=== PATIENT | male | born 1945 | race Caucasian/White ===

== ENCOUNTER → 2017-01-27 | Outpatient (CLI) | payer OTHER, MEDICARE ==
[~2017-01-27] MED LIST: IOPAMIDOL (ISOVUE-300) 100 ML BTL ONE
== END ==
LOC: FIMAGING 10:21
PROVIDERS: ATTEND Internal Medicine
DX: R63.4 Abnormal weight loss (principal); Z85.72 Personal history of non-Hodgkin lymphomas; I70.0 Atherosclerosis of aorta
CPT/HCPCS: 71020; 74177; Q9967

== ENCOUNTER 2017-04-06 09:47 | Emergency (ER) | payer OTHER, MEDICARE ==
[2017-04-06] MEDS ORDERED: MECLIZINE HCL 25 MG TAB PO ONE (09:52)
--- NOTE | 2017-04-06 09:52 | EDPHY ---
H & P Time Seen by Provider: 04/06/17 09:51 HPI/ROS: CHIEF COMPLAINT: Dizziness HISTORY OF PRESENT ILLNESS: For the past 3 days patient is felt that he is spinning every time he turns his head. Today he arrives by EMS because he could not stand up because symptoms were so severe. Patient describes dizziness as spinning or sensation of movement. Worse with moving his head and better while remaining still. Associated with decreased oral intake over the past 48 hr, not feeling like eating or drinking and feels dehydrated. Not associated with headache or neck pain or weakness or numbness in extremities or difficulty with speech or balance. REVIEW OF SYSTEMS: Eye: no change in vision ENT: no sore throat, no earache or decrease in hearing Cardiac: no chest pain or syncope Pulmonary: no cough or SOB Abdomen: no vomiting, diarrhea, abdominal pain. Decreased oral intake x 1-2 years, doesn't feel hungry, food doesn't appeal to him. Musculoskeletal: No neck pain, left arm deformity and disability from previous injury Skin: no rash Neuro: no headache Constitutional: no fever : no urinary symptoms A comprehensive 10 point review of systems is otherwise negative aside from elements mentioned in the history of present illness. PAST MEDICAL HISTORY: Includes history of lymphoma Social history: No alcohol General Appearance: Alert and conversant, cooperative. Eyes: No scleral icterus. Pupils equal reactive extraocular motion intact. ENT, Mouth: Normal mucous membranes. Normal tympanic membranes. Respiratory: Normal respiratory effort, breath sounds equal, lungs are clear to auscultation. Cardiovascular: Regular rate and rhythm. Gastrointestinal: Abdomen is soft and non tender. Neurological: Alert and oriented x3. Normally conversant. Face symmetric, normal movement and sensation in all extremities. Left arm is a little bit limited by previous injury but no pronator drift and normal bblgyg-wv-ncay bilaterally. Normal jchk-fi-nkti bilaterally. Skin: Warm and dry, no rashes. Musculoskeletal: No peripheral edema and no joint swelling. Psychiatric: Not agitated. Emergency Department course/MDM: Patient presents with symptoms consistent with peripheral vertigo. He has symptoms that are provoked by turning his head, better remaining still, neurologic exam does not show objective cerebellar deficit. Does not have severe headache. Doubt dysrhythmia or cardiac problem; not lightheaded or syncopal or near syncopal. Treatment with meclizine, outpatient follow-up. 1235: Feels better, ambulatory, results and plan discussed with the patient, he states he feels comfortable going home. Smoking Status: Never smoked Constitutional: Initial Vital Signs Temperature (C) 37.0 C 04/06/17 09:57 Heart Rate 57 L 04/06/17 09:57 Respiratory Rate 16 04/06/17 09:57 Blood Pressure 147/86 H 04/06/17 09:57 O2 Sat (%) 98 04/06/17 09:57 O2 Delivery Mode Room Air Allergies/Adverse Reactions: Penicillins Allergy (Verified 09/23/15 07:11) Home Medications: Medication Instructions Recorded Alprazolam 09/23/15 Meclizine HCl [Meclizine HCl 25 mg 25 mg PO Q6 PRN #20 tab 04/06/17 (RX,OTC)] Medical Decision Making - Diagnostics EKG Interpretation: 12-lead EKG interpreted by me; official reading is in trace master. My interpretation is sinus rhythm rate 60 with right bundle branch block pattern. Differential Diagnosis: Differential diagnosis considered for dizziness including but not limited to peripheral and central causes of vertigo, orthostatic causes including dehydration, and blood loss. - Data Points Laboratory Results: Laboratory Results 04/06/17 09:53 04/06/17 09:53 04/06/17 04/06/17 09:53 09:53 WBC 6.83 10^3/uL 10^3/uL (3.80-9.50) RBC 5.28 10^6/uL 10^6/uL (4.40-6.38) Hgb 15.7 g/dL g/dL (13.7-17.5) Hct 44.7 % % (40.0-51.0) MCV 84.7 fL fL (81.5-99.8) MCH 29.7 pg pg (27.9-34.1) MCHC 35.1 g/dL g/dL (32.4-36.7) RDW 14.6 % % (11.5-15.2) Plt Count 317 10^3/uL 10^3/uL (150-400) MPV 8.5 fL L fL (8.7-11.7) Neut % (Auto) 54.0 % % (39.3-74.2) Lymph % (Auto) 35.0 % % (15.0-45.0) [place] % (Auto) 8.8 % % (4.5-13.0) Eos % (Auto) 1.0 % % (0.6-7.6) Baso % (Auto) 0.6 % % (0.3-1.7) Nucleat RBC Rel Count 0.0 % % (0.0-0.2) Absolute Neuts (auto) 3.69 10^3/uL 10^3/uL (1.70-6.50) Absolute Lymphs (auto) 2.39 10^3/uL 10^3/uL (1.00-3.00) Absolute Monos (auto) 0.60 10^3/uL 10^3/uL (0.30-0.80) Absolute Eos (auto) 0.07 10^3/uL 10^3/uL (0.03-0.40) Absolute Basos (auto) 0.04 10^3/uL 10^3/uL (0.02-0.10) Absolute Nucleated RBC 0.00 10^3/uL 10^3/uL (0-0.01) Immature Gran % 0.6 % % (0.0-1.1) Immature Gran # 0.04 10^3/uL 10^3/uL (0.00-0.10) Sodium 142 mEq/L mEq/L (134-144) Potassium 3.6 mEq/L mEq/L (3.5-5.2) Chloride 107 mEq/L mEq/L (97-110) Carbon Dioxide 23 mEq/l mEq/l (22-31) Anion Gap 12 mEq/L mEq/L (8-16) BUN 12 mg/dL mg/dL (7-23) Creatinine 1.3 mg/dL mg/dL (0.7-1.3) Estimated GFR 54 Glucose 88 mg/dL mg/dL (70-100) Calcium 9.7 mg/dL mg/dL (8.5-10.4) Medications Given: Discontinued Medications Meclizine HCl (Meclizine Hcl) 25 mg PO EDNOW ONE Stop: 04/06/17 09:53 Last Admin: 04/06/17 10:09 Dose: 25 mg Ondansetron HCl (Zofran) 4 mg IVP EDNOW ONE Stop: 04/06/17 10:06 Last Admin: 04/06/17 10:09 Dose: 4 mg Departure - Departure Disposition: Home, Routine, Self-Care Clinical Impression: Vertigo Condition: Good Instructions: Vertigo (ED), Benign Paroxysmal Positional Vertigo (ED) Referrals: Buddy Munoz MD [Primary Care Provider] - As per Instructions Prescriptions: Meclizine HCl [Meclizine HCl 25 mg (RX,OTC)] 25 mg PO Q6 PRN #20 tab PRN Reason: Dizziness
[2017-04-06 09:59] VITALS: RESP 16; TEMP 98.6; O2SAT 98
[2017-04-06 10:04] LABS: PLATELET COUNT 317 10^3/uL (150-400)
[2017-04-06] MEDS ORDERED: ONDANSETRON 4 MG/2 ML VIAL IVP ONE (10:05)
--- NOTE | 2017-04-06 10:16 | CPEKG ---
Heart Rate: Invalid RR Interval: Invalid P-R Interval: 184 QRSD Interval: 130 QT Interval: 302 QTC Interval: 302 P [place]: 0 QRS [place]: -91 T Wave [place]: 222 EKG Severity - ABNORMAL ECG - EKG Impression: SINUS RHYTHM EKG Impression: RIGHT BUNDLE BRANCH BLOCK Electronically Signed By: Isaias Perera 06-Apr-2017 10:31:04
[2017-04-06 12:45] VITALS: BP 140/82; PULSE 76
== END 2017-04-06 12:42 | disposition home or self-care (01) ==
LOC: EDBD → EDUNIT#
DX: R42 Dizziness and giddiness (principal)
CPT/HCPCS: 93005; 96374; 99284; J2405

== ENCOUNTER 2017-04-26 08:28 | Emergency (ER) | payer OTHER, MEDICARE ==
--- NOTE | 2017-04-26 08:29 | EDPHY ---
H & P HPI/ROS: CHIEF COMPLAINT: Rapid heart rate, fever HISTORY OF PRESENT ILLNESS: The patient is a 71 y/o male with a history of lymphoma arriving via EMS complaining of rapid heart rate and fever onset early this morning. He has anorexia nervosa and reports losing 40lbs over the last couple months he attributes to a "mental issue" and lack of appetite. He returned from [place] [facility] a few days ago and this morning was awoken by tachycardia and fever. He also has a cough and feels extremely thirsty. No sore throat, myalgias, dyspnea, chest pain, abdominal pain. He did receive a flu vaccination this season. REVIEW OF SYSTEMS: A ten point review of systems was performed and is negative with the exception of the items mentioned in the HPI. Episode of vertigo one week ago. 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 PCP: Dr. Buddy Munoz. Oncologist: Dr. Roberson General Appearance: Alert. Skin is hot to the touch, mildly diaphoretic. Thin. Vital signs reviewed. 120/70, 110, BGL 147, 39.5C. Eyes: Pupils equal and round, no conjunctival injection, no discharge. Anicteric. ENT, Mouth: Mucous membranes are moist, mild oropharyngeal erythema and uvular erythema, no edema. Neck: No lymphadenopathy, supple. Respiratory: Lungs are clear to auscultation; no wheezes, rales, or rhonchi. Cardiovascular: Tachycardic; no murmur, rub, or gallop. Gastrointestinal: Abdomen is soft and nontender, no masses or organomegaly. Skin: Hot, slightly diaphoretic, no rashes on exposed skin, normal color. Back: Nontender to palpation over the thoracolumbar spine. No CVAT. Extremities: No lower extremity edema, no calf tenderness or swelling. Neurological: Alert and oriented. Moving all four extremities easily and equally. Psychiatric: Normal affect. Constitutional: Initial Vital Signs Temperature (C) 39.5 C H 04/26/17 08:37 Heart Rate 105 H 04/26/17 08:37 Respiratory Rate 16 04/26/17 08:37 Blood Pressure 143/80 H 04/26/17 08:37 O2 Sat (%) 94 04/26/17 08:37 O2 Delivery Mode Room Air Allergies/Adverse Reactions: Penicillins Allergy (Verified 09/23/15 07:11) Home Medications: Medication Instructions Recorded Alprazolam 09/23/15 Meclizine HCl [Meclizine HCl 25 mg 25 mg PO Q6 PRN #20 tab 04/06/17 (RX,OTC)] AZITHROMYCIN [Z-PACK] 250 mg PO DAILY #4 tab 04/26/17 Albuterol [Proventil Inhaler HFA 1 - 2 puffs IH Q4 #1 mdi 04/26/17 (*)] Medical Decision Making - Diagnostics Imaging: I viewed and interpreted images myself ED Course/Re-evaluation: This is a 72 y/o male with anorexia and significant recent weight loss who presents with a several-hour history of tachycardia and fever. He has history ofl ymphoma (in remission)He is hot to the touch, mildly diaphoretic, and thin on exam. He is febrile at 39.5C and tachycardic around 110. Plan for sepsis work up including IV, labs, flu swab, EKG, chest x-ray, fluids, and antipyretics. 600mg PO ibuprofen and PO fluids. The 12 lead EKG was interpreted by myself. Sinus tachycardia rate 110, RBBB, LAFB. See hard copy and/or "tracemaster" electronic copy for interpretation. Flu negative. Lactate normal. WBC 11. Chest x-ray shows early pneumonia. Will treat with 1gm IV Ceftriaxone, 500mg IV azithromycin, and 1L IV NS. Reassessed patient. Temp now 38C. Additional 200mg PO ibuprofen ordered. He does not take tylenol--he was once told that he had hepatitis C. He is not sure if that is the case or not. Reassessed patient. He is unwilling to stay in the hospital, admission was offered. He is arranging transport home with his sister. DC vitals are 103/56, HR 70, RR 16, O2 sat on room air 94%, and temp 36.6. He will likely do fine with outpatient treatment. He will be given script for azithromycin and albuterol along with standard pneumonia care and follow up instructions. Return precautions discussed. He agrees with discharge plan. Differential Diagnosis: I considered ddx that includes but is not limited to influenza, pneumonia, UTI, intra-abdominal infection, viral syndrome. - Data Points Laboratory Results: Laboratory Results 04/26/17 09:05 04/26/17 09:05 Microbiology Results: MICROBIOLOGY 04/26/17 09:05 Blood Blood Culture - Preliminary 04/26/17 09:05 Blood Blood Culture - Preliminary Medications Given: Discontinued Medications Azithromycin 500 mg/ Dextrose 255 mls @ 255 mls/hr IV EDNOW ONE PRN Reason: Protocol Stop: 04/26/17 12:11 Last Admin: 04/26/17 13:26 Dose: 255 mls Ceftriaxone Sodium/Dextrose (Rocephin 1 Gm (Premix)) 50 mls @ 100 mls/hr IV EDNOW ONE PRN Reason: Protocol Stop: 04/26/17 11:41 Last Admin: 04/26/17 11:29 Dose: 50 mls Sodium Chloride (Ns) 1,000 mls @ 0 mls/hr IV EDNOW ONE; Wide Open PRN Reason: Protocol Stop: 04/26/17 11:13 Last Admin: 04/26/17 11:30 Dose: 1,000 mls Ibuprofen (Motrin) 600 mg PO EDNOW ONE Stop: 04/26/17 08:40 Last Admin: 04/26/17 09:59 Dose: 600 mg Ibuprofen (Motrin) 200 mg PO EDNOW ONE Stop: 04/26/17 11:15 Last Admin: 04/26/17 11:34 Dose: 200 mg Departure - Departure Disposition: Home, Routine, Self-Care Clinical Impression: Pneumonia Qualifiers: Pneumonia type: due to unspecified organism Laterality: left Lung location: unspecified part of lung Qualified Code(s): J18.9 - Pneumonia, unspecified organism Condition: Good Instructions: Pneumonia (ED) Additional Instructions: 1. Take azithromycin as prescribed. Be sure to complete the entire prescription. 2. Use albuterol inhaler as directed for coughing or shortness of breath. 3. Take 600mg ibuprofen every 6-8 hours for fever and pain over the next few days. 4. Increase fluid and food intake. 5. Follow up with your primary care provider for unimproved symptoms over the next 3-5 days. 6. Return to the ED for worsening of condition. Referrals: Buddy Munoz MD [Primary Care Provider] - As per Instructions Prescriptions: Albuterol [Proventil Inhaler HFA (*)] 1 - 2 puffs IH Q4 #1 mdi AZITHROMYCIN [Z-PACK] 250 mg PO DAILY #4 tab Report Scribed for: Ileana Solis Report Scribed by: Zamzam Morocho Date of Report: 04/26/17 Time of Report: 08:39 Physician Review and Approval Statement: 04/26/17 08:29 Portions of this note were transcribed by the special forces medical sergeant. I, Dr. Ileana Solis, personally performed the history, physical exam, and medical decision- making; and confirmed the accuracy of the information in the transcribed note.
[2017-04-26] MEDS ORDERED: IBUPROFEN 600 MG TAB PO ONE (08:39)
[2017-04-26 09:28] LABS: PLATELET COUNT 217 10^3/uL (150-400)
--- NOTE | 2017-04-26 09:28 | CPEKG ---
Heart Rate: 110 RR Interval: 545 P-R Interval: 188 QRSD Interval: 118 QT Interval: 336 QTC Interval: 455 P [place]: 71 QRS [place]: -101 T Wave [place]: 45 EKG Severity - ABNORMAL ECG - EKG Impression: SINUS TACHYCARDIA EKG Impression: RBBB AND LAFB Electronically Signed By: Ileana Solis 26-Apr-2017 15:18:14
[2017-04-26 09:43] LABS: INR 1.03 (0.83-1.16); PROTIME(PATIENT) 13.7 SEC (12.0-15.0)
[2017-04-26] MEDS ORDERED: AZITHROMYCIN IV 500 MG in D5W 250 ML IV ONE (11:12)
[2017-04-26] MEDS ORDERED: NS 1,000 ML IV ONE (11:12)
[2017-04-26] MEDS ORDERED: IBUPROFEN 200 MG TAB PO ONE (11:14)
[2017-04-26 14:47] VITALS: BP 103/56; PULSE 70; RESP 16; TEMP 97.9; O2SAT 94
== END 2017-04-26 14:55 | disposition home or self-care (01) ==
LOC: EDUNIT#
DX: J18.9 Pneumonia, unspecified organism (principal); E86.9 Volume depletion, unspecified
CPT/HCPCS: 71046; 93005; 96374; 96375; 99285; J0456; J0696

== ENCOUNTER → 2017-07-08 | Outpatient (CLI) | payer OTHER, MEDICARE | LOC: FIMAGING 09:23 | PROVIDERS: ATTEND Internal Medicine | DX: K14.8 Other diseases of tongue (principal); M25.78 Osteophyte, vertebrae; K22.5 Diverticulum of esophagus, acquired ==

== ENCOUNTER 2017-08-03 09:13 | Inpatient (IN) | payer OTHER, MEDICARE ==
[2017-08-03] MEDS ORDERED: NALOXONE HCL 0.4 MG/ML INJ IVP PRN (09:31)
[2017-08-03] MEDS ORDERED: GLUCAGON HCL 1 MG VIAL IVP PRN (09:31)
[2017-08-03] MEDS ORDERED: MEPERIDINE 25 MG/ML SYR IVP PRN (09:31)
[2017-08-03] MEDS ORDERED: FLUMAZENIL 0.5 MG/5 ML MDV IVP PRN (09:31)
[2017-08-03] MEDS ORDERED: ALTEPLASE 2 MG VIAL IVP PRN (09:31)
[2017-08-03] MEDS ORDERED: MIDAZOLAM 2 MG/2 ML VIAL IVP PRN (09:31)
[2017-08-03] MEDS ORDERED: fentaNYL 100 MCG/2 ML INJ IVP PRN (09:31)
[2017-08-03] MEDS ORDERED: HEPARIN 10,000 UNIT/10 ML MDV (1,000 UNIT/ML) IVP PRN (09:31)
[2017-08-03] MEDS ORDERED: PROTAMINE SULFATE 50 MG/5 ML VIAL IVP PRN (09:31)
[2017-08-03] MEDS ORDERED: NALOXONE HCL 0.4 MG/ML INJ ONE (09:35)
[2017-08-03] MEDS ORDERED: FLUMAZENIL 0.5 MG/5 ML MDV IVP ONE (09:35)
[2017-08-03] MEDS ORDERED: MIDAZOLAM 2 MG/2 ML VIAL ONE (09:36)
[2017-08-03] MEDS ORDERED: fentaNYL 100 MCG/2 ML INJ ONE ×3 (09:36→15:44)
[2017-08-03] MEDS ORDERED: ceFAZolin 2 GM/SWFI 20 ML SYR IVP ONE (09:55)
[2017-08-03] MEDS ORDERED: ceFAZolin 2 GM/SWFI 2 GM/20 ML SYR IVP ONE (10:00)
[2017-08-03] MEDS: NS 1,000 ML IV SCH ×2 (10:14→20:18)
[2017-08-03 11:01] LABS: INR 0.98 (0.83-1.16); PROTIME(PATIENT) 13.2 SEC (12.0-15.0)
[2017-08-03] MEDS ORDERED: LIDOCAINE 2% JELLY 20 ML (UROJECT) ONE (11:03)
[2017-08-03] MEDS ORDERED: LIDOCAINE 1% 300 MG/30 ML SDV ONE (11:07)
[2017-08-03] MEDS ORDERED: GLUCAGON HCL 1 MG VIAL ONE (11:38)
[2017-08-03] MEDS ORDERED: MINERAL OIL 10 ML VIAL ONE ×2 (11:51→12:02)
[2017-08-03] MEDS ORDERED: IOPAMIDOL (ISOVUE-300) 100 ML BTL ONE (12:18)
--- NOTE | 2017-08-03 13:07 | PDGENHP ---
History & Physical Chief Complaint: H&N ca History of Present Illness: 72 yo M w a h/o lymphoma many yrs ago and recently dx'd h&n ca. Endorses 35 lb weight loss. Plan for XRT. Gastrostomy tube requested. Pertinent Past, Social, Family History: Non-contributory Relevant Physical Exam: Abd soft, NTND Cardiorespiratory Assessment: Bradycardia, normal resp effort
--- NOTE | 2017-08-03 13:10 | PDPROPOC ---
Sedation Plan of Care Sedation Plan of Care: vital signs stable, mental status noted, patient educated of risks, benefits, alternatives, patient can tolerate sedation ASA Classification: ASA 3 Planned drugs: fentanyl, midazolam Mallampati Score: Class 2 (Mass at base of tongue may complicate intubation if needed) Mallampati Reference Image: Patient passed 3-3-2 rule?: Yes
[2017-08-03] MEDS ORDERED: HYDROmorphONE/DILAUDID 2 MG/ML INJ IVP PRN (13:22)
[2017-08-03] MEDS ORDERED: ERTAPENEM 1 GM VIAL IV ONE (13:22)
--- NOTE | 2017-08-03 13:22 | PDRADPN ---
Radiology Procedure Note Date of Procedure: 08/03/17 Radiologist: Felipe Trammell Anesthesia: IV Sedation Pre-op Diagnosis: H&n ca Post-op Diagnosis: Same Indication: H&n ca, XRT planned Procedure: Percutaneous gastrostomy, unsuccessful Finding(s): Unsuccessful gastrostomy tube placement. Wire access to the stomach was lost following placement of 2 T-tacks and tract dilation. Repeated attempts recatheterize stomach through existing tract were unsuccessful. Requested input from surgeon Dr. Sajan Mercado. Because there is likely a hole in the stomach which was intentionally created to accept the gastrostomy tube, he recommends repairing the hole prior to another attempt at gastrostomy tube insertion. Dr. Mercado has agreed to take the patient to the OR this afternoon and will place a surgical G-tube at that time. This was explained to pt at the conclusion of the procedure and he verbalized understanding. Please see dictated report for additional details. Inf/Abcess present in the surg proc area at time of surgery?: No EBL: Minimal Complications: No immediate Specimen(s): None taken
[2017-08-03] MEDS ORDERED: LR 1,000 ML IV ONE (13:23)
[2017-08-03] MEDS ORDERED: PROPOFOL 200 MG/20 ML VIAL ONE ×2 (15:44→17:17)
[2017-08-03] MEDS ORDERED: ROCURONIUM 50 MG/5 ML VIAL ONE (15:46)
[2017-08-03] MEDS ORDERED: RANITIDINE 50 MG/2 ML VIAL ONE (15:47)
[2017-08-03] MEDS ORDERED: DEXAMETHASONE 4 MG/ML VIAL ONE (15:47)
[2017-08-03] MEDS ORDERED: PHENYLEPHRINE HCL 100 MCG/ML SYR ONE (15:47)
[2017-08-03] MEDS ORDERED: epHEDrine SULFATE 10 MG/ML SYR ONE (15:48)
[2017-08-03] MEDS ORDERED: BUPIVACAINE 0.5% 30 ML SDV ONE (16:07)
--- NOTE | 2017-08-03 18:38 | POSTANESTH ---
Post Anesthetic Evaluation Cardiovascular Status: Normal, Stable Respiratory Status: Other, See Comment Level of Consciousness/Mental Status: Other, See Comment Pain Control: Adequate, Prn Tx Ordered Nausea/Vomiting Control: Adequate, Prn Tx Ordered Complications Possibly Related to Anesthesia: Other, See Comments (Patient with large friable pharyngeal mass which made intubation somewhat difficult. Mass with slow oozing noted intraoperatively. Discussed with ENT service ( via his PA) and with Dr. Mercado. Patient will be kept intubated overnight for likely tracheostomy in am.)
--- NOTE | 2017-08-03 19:06 | POSTOPPROG ---
Post Op Note Date of Operation: 08/03/17 Surgeon: Aquiles Mercado Couture Dressmaker: Orly Fuentes Anesthesiologist: Tucker Villalba Anesthesia: GET(General Endotracheal) Pre-op Diagnosis: pharyngeal CA, need for radiation treatment, expect need for NPO Post-op Diagnosis: same Indication: 72 Y M s/p unsuccessful IR attempt at Gtube placement Procedure: open gastrostomy tube placement Findings: tube placed in IR created site. no gross leakage. gtube functional. Inf/Abcess present in the surg proc area at time of surgery?: No EBL: Minimal Complications: none
[2017-08-03] MEDS: PROPOFOL/EMULSION 100 ML IV SCH ×2 (20:17→23:14)
[2017-08-03] MEDS: FAMOTIDINE 20 MG/NACL 50 ML IV SCH (22:21)
[2017-08-03] MEDS: CHLORHEXIDINE GLUCONATE 15 ML UDL PO SCH (22:21)
[2017-08-04] MEDS: PROPOFOL/EMULSION 100 ML IV SCH ×3 (07:58→20:41)
[2017-08-04] MEDS: FAMOTIDINE 20 MG/NACL 50 ML IV SCH ×2 (07:59→20:22)
[2017-08-04] MEDS: CHLORHEXIDINE GLUCONATE 15 ML UDL PO SCH ×2 (07:59→20:22)
--- NOTE | 2017-08-04 10:36 | SOAPPROG ---
SOAP Progress Note Assessment/Plan: Assessment: 72 y/o male with history of lymphoma and now with head and neck CA. S/p g-tube placement POD#1 Pt had bleeding postoperatively after pulling ET tube. Now intubated to protect airway. S: Awake. Communicating by writing. O: Alert Afebrile HENT: ET tube in place per xray Abdomen: soft. g-tube in place. Dressing cdi. Plan: Seen with Dr. Mercado. ENT consult. May need a trach to protect airway while undergoing radiation treatment. Scheduled to start radiation on August 10. 08/04/17 10:32 Objective: Vital Signs Temp Pulse Resp BP Pulse Ox 37.1 C 45 L 20 109/55 L 100 08/04/17 10:00 08/04/17 10:00 08/04/17 10:00 08/04/17 10:00 08/04/17 10:00 Laboratory Results 08/03/17 10:05 08/03/17 08/04/17 08/05/17 05:59 05:59 05:59 Intake Total 903 Output Total 550 Balance 353 PT 13.2 SEC (12.0-15.0) 08/03/17 10:05 INR 0.98 (0.83-1.16) 08/03/17 10:05 ICD10 Worksheet Patient Problems: Problems Problem Status Onset Pneumonia Acute
--- NOTE | 2017-08-04 11:08 | PDMN ---
Medical Necessity Medical necessity: est los>2mn s/p open G tube placement for unsuccessful IR procedure, and resp failure with intubation maintained for large friable pharyngeal mass with slow oozing noted; likely tracheostomy needed to protect airway during RT; hx lymphoma, now with head and neck CA; per order and progress note 06/06/17, anesthesia note 08/03/17
--- NOTE | 2017-08-04 14:39 | ASMTCASEMG ---
Living Arrangements What is your living Answers: Alone arrangement? Who do you live with? Type Of Residence What kind of residence do Answers: House you live in? Discharge Plan Comments Coordination Status Comments Notes: Patient is a 72yo single male who comes to [facility] for Gastrostomy Tube placement. Patient has a preoperative diagnosis of head and neck cancer. This is a replacement tube so the hole in the stomach that accepted the first tube will need to be repaired. FAMILY CONSUMER SCIENTIST has been ordered. D/C plan TBD. CM will follow. Date Signed: 08/04/2017 02:39 PM Electronically Signed By:Lilibeth Alex LCSW
[2017-08-04] MEDS: NS 1,000 ML IV SCH (20:40)
--- NOTE | 2017-08-04 22:42 | GCON ---
[f rep st] CONSULTATION DATE OF CONSULTATION: 08/04/2017 CHIEF COMPLAINT: Airway obstruction. 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 He recently underwent attempts at a G-tube per the radiologist. This was not possible and he subsequently underwent open insertion of PEG tube by Dr. Aquiles Mercado. During his intubation, the anesthesiologist noted great difficulty intubating the patient with bleeding in the region of the hypopharynx due to the patient's known T3 N0 squamous cell carcinoma. The patient has been kept in the intensive care unit intubated following the procedure, and there was a question as to whether significant airway obstruction was noted and whether the patient would need a tracheostomy. PHYSICAL EXAMINATION: GENERAL: The patient is a sedated white male with ET tube in place. VITAL SIGNS: He is afebrile. Blood pressure is 120/59 with a pulse of 78. He is currently on a ventilator. HEENT: The patient was a sedated male. The nasal exam was unremarkable. Oral cavity, oropharynx exam reveals a presence of an ET tube. NECK: Without mass or adenopathy. Fiberoptic laryngoscopy was performed, which revealed the presence of a large exophytic mass on the base of tongue. The lesion has possibly enlarged since he was previously examined 2 weeks ago. The lesion significantly obstructed his airway. Due to the patient's enlarging base of tongue tumor, in a discussion with Dr. Carlos Peña, it was felt appropriate to proceed with tracheostomy. Tracheostomy will be performed on the morning of 08/05/2017. Preoperative consent was obtained from the patient. Risks of this procedure, including bleeding, infection, anesthetic risks, as well as risk of pneumothorax were discussed. He appears to understand these risks and wishes to proceed. Surgery will again be performed on 08/05/2017. /[id number]/MODL MTDD
--- NOTE | 2017-08-04 23:33 | SOAPPROG ---
SOAP Progress Note Assessment/Plan: Assessment: 72 yo M w h/o lymphoma recently dx'd w SCC of hypopharynx s/p successful surgical G-tube placement POD #1. Initial IR attempt at G-tube unsuccessful. During intubation, pt noted to have large mass threatening airway. Was kept intubated and tracheostomy is planned. Plan: 1. No new recs from an IR standpoint. 2. Concur w tracheostomy per ENT recs. Thank you for the opportunity to assist in the care of this pt. 08/04/17 23:27 Subjective: Pt seen and examined this am. Awake and alert. Communicates by pen and paper. Denies pain. Understands need for tracheostomy. Objective: Vital Signs Temp Pulse Resp BP Pulse Ox 36.7 C 41 L 20 135/61 H 100 08/04/17 20:00 08/04/17 23:00 08/04/17 23:00 08/04/17 23:00 08/04/17 23:00 Laboratory Results 08/03/17 10:05 08/03/17 08/04/17 08/05/17 05:59 05:59 05:59 Intake Total 903 608 Output Total 550 275 Balance 353 333 PT 13.2 SEC (12.0-15.0) 08/03/17 10:05 INR 0.98 (0.83-1.16) 08/03/17 10:05 Gen: Awake, alert HEENT: Normocephalic, atraumatic, anicteric Heart: RRR Lungs: Intubated Abd: G-tube in place, dressing CDI, abd soft and NT, no rebound, no guarding MSK: No CCE ICD10 Worksheet Patient Problems: Problems Problem Status Onset Pneumonia Acute
[2017-08-05] MEDS: PROPOFOL/EMULSION 100 ML IV SCH (02:52)
[2017-08-05] MEDS: FAMOTIDINE 20 MG/NACL 50 ML IV SCH ×2 (07:58→20:33)
[2017-08-05] MEDS: CHLORHEXIDINE GLUCONATE 15 ML UDL PO SCH ×2 (07:58→20:33)
--- NOTE | 2017-08-05 10:16 | SOAPPROG ---
SOAP Progress Note Assessment/Plan: Assessment: 72 y/o male with history of lymphoma and now with head and neck CA. S/p g-tube placement POD#1 Pt had bleeding postoperatively after pulling ET tube. Now intubated to protect airway. S: Awake. Communicating by writing. O: Alert Afebrile HENT: ET tube in place per xray Abdomen: soft. g-tube in place. Dressing cdi. Plan: Seen with Dr. Mercado. ENT consult. May need a trach to protect airway while undergoing radiation treatment. Scheduled to start radiation on August 10. 08/04/17 10:32 08/05/17 10:15 Pt stable. G-tube in place. Dressing cdi. Plan for tracheostomy with ENT later today. Objective: Vital Signs Temp Pulse Resp BP Pulse Ox 36.7 C 45 L 20 151/89 H 100 08/05/17 08:00 08/05/17 10:00 08/05/17 10:00 08/05/17 10:00 08/05/17 10:00 Laboratory Results 08/03/17 10:05 08/04/17 08/05/17 08/06/17 05:59 05:59 05:59 Intake Total 903 1876 Output Total 550 925 Balance 353 951 PT 13.2 SEC (12.0-15.0) 08/03/17 10:05 INR 0.98 (0.83-1.16) 08/03/17 10:05 ICD10 Worksheet Patient Problems: Problems Problem Status Onset Pneumonia Acute
--- NOTE | 2017-08-05 12:03 | GOP ---
[f rep st] OPERATIVE REPORT DATE OF OPERATION: 08/03/2017 SURGEON: Aquiles Mercado MD MANAGER LANGUAGE: Orly Fuentes, HAMLET. ANESTHESIOLOGIST: Dr. AGUIRRE. PREOPERATIVE DIAGNOSIS: Need for gastrostomy with recent gastric perforation and attempt at percutaneous gastrostomy placement. POSTOPERATIVE DIAGNOSIS: Need for gastrostomy with recent gastric perforation and attempt at percutaneous gastrostomy placement. PROCEDURE PERFORMED: Mini laparotomy with gastrostomy placement. FINDINGS: The patient was found to have a small hole in the stomach. The anchoring stitches had pulled away, at least on 1 side. There was no significant contamination. ESTIMATED BLOOD LOSS: Negligible. DESCRIPTION OF PROCEDURE: Patient taken to the operating room where he received satisfactory general endotracheal anesthesia. He was placed in supine position, prepped and draped in the usual sterile fashion. A short midline incision was made and carried through the linea alba. The abdomen was entered. The stomach was grasped with Joaquín clamps and elevated up. The previous attempted gastrostomy site was identified. The stay sutures were removed. A pursestring suture of 0 silk was placed around the gastrotomy site. A 24- Palauan gastrotomy tube was brought in through the previous incision site through the abdominal wall. The balloon was tested, and it was then inserted via the gastrotomy wound into the stomach. The balloon was inflated. The pursestring was tied down and then a second pursestring was placed outside of that one, and the stomach was then tacked up to the anterior abdominal wall. The linea alba was closed with a running #1 PDS suture and 4-0 Monocryl subcuticular stitch for the skin. The wound was covered with some Dermabond glue. Externally, the catheter was secured at the exit site after being tacked up to the abdominal wall with interrupted 3-0 Prolene sutures. Wounds were infiltrated with 0.5% Marcaine. He tolerated the procedure well. He was taken to the recovery room in good condition. COMPLICATIONS: There were no complications. /[id number]/MODL MTDD
[2017-08-05] MEDS ORDERED: LIDOCAINE HCL 4% TOPICAL SOLN 50ML ONE (12:55)
[2017-08-05] MEDS ORDERED: LIDO/EPI 1% **for epidural** 30 ML SDV ONE (12:55)
[2017-08-05] MEDS ORDERED: fentaNYL 100 MCG/2 ML INJ ONE ×2 (13:21)
[2017-08-05] MEDS ORDERED: PROPOFOL 200 MG/20 ML VIAL ONE (13:21)
[2017-08-05] MEDS ORDERED: DEXAMETHASONE 4 MG/ML VIAL ONE (14:03)
[2017-08-05] MEDS ORDERED: ONDANSETRON 4 MG/2 ML VIAL ONE (14:03)
--- NOTE | 2017-08-05 14:10 | POSTOPPROG ---
Post Op Note Date of Operation: 08/05/17 Surgeon: Aubree Red Clothing Examiner: Carlos Peña M.D. 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
[2017-08-05] MEDS ORDERED: NALOXONE HCL 0.4 MG/ML INJ IVP PRN (14:13)
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
--- NOTE | 2017-08-05 15:15 | GOP ---
[f rep st] OPERATIVE REPORT DATE OF OPERATION: 08/05/2017 SURGEON: Ender Red MD LEVI MAKER: Carlos Peña MD ANESTHESIA: General endotracheal. PREOPERATIVE DIAGNOSIS: Respiratory failure and difficult intubation due to large base of tongue radha or. POSTOPERATIVE DIAGNOSIS: Respiratory failure and difficult intubation due to large base of tongue tu mor. PROCEDURE PERFORMED: Tracheostomy with direct laryngoscopy. FINDINGS: Normal trachea and uncomplicated tracheostomy with large base of tongue tumor on direct la ryngoscopy. ESTIMATED BLOOD LOSS: 50 mL. DESCRIPTION OF PROCEDURE: The patient arrived in the operating room intubated. He was then anesthet ized and once under general anesthesia, sterile prep and drape of the anterior neck was performed in the standard manner for tracheostomy. The incision was then planned and created in naturally occurring skin crease midway between the crico id cartilage and the sternal notch. The incision was then carried down through the soft tissues of t he anterior neck, the strap muscles were encountered and were retracted laterally. As dissection pro ceeded further deeply the thyroid isthmus was encountered and this was reflected cephalad from the op erative site. Further dissection was performed where soft tissues were cleared from the anterior tra cheal wall. A trach hook was inserted deep to the cricoid cartilage and elevated superiorly. The tr achea was then entered between the 2nd and 3rd tracheal ring. The cruciate incision was created into its anterior tracheal wall. The previously placed endotracheal tube was visualized. This was gradu ally withdrawn and once clear of the tracheostomy site a #8 Portex cuffed nonfenestrated tube was ins erted into the tracheostomy. End-tidal CO2 were then returned. The tracheostomy tube was sutured in to place with four 2-0 silk sutures. In addition, a trach twill was tied snugly around the patient's neck. At this point, attention was directed to laryngoscopy. The patient has been noted to have a very lar ge base of tongue carcinoma T3 N0 on prior evaluation. Sterile eye pads and head drape were placed. A tooth guard was placed over the upper incisors to protect them. The Dedo laryngoscope was advance d into the oral cavity and into the oropharynx. The large fungating base of tongue tumor was visuali zed. The scope was advanced further and it was noted that the tumor was free of the epiglottis. The larynx including endolarynx, right and left piriform sinus post cricoid region were found to be with in normal limits. The tumor was noted to be predominantly on the left side of the base of the tongue . At this point the procedure was terminated. The was awakened and transferred to [facility] in stable condition. FLUID REPLACEMENT: 400 mL. COMPLICATIONS: None. /[id number]/MODL
--- NOTE | 2017-08-05 16:16 | PDINTPN ---
Global Climate Change Researcher Progress Note Assessment/Plan: Assessment: Squamous Cell Ca tongue base. Friable, obstructing airway Respiratory Failure: Dur to upper airway obstruction. Now s/p trach Tracheostomy: Doing well post-op, with minimal bleeding. Stable on vent. Plan: Wean sedation and increase activity. Change to trach collar once more alert. 08/05/17 16:14 Subjective: Sedated, fresh tracheostomy Objective: Vital Signs Temp Pulse Resp BP Pulse Ox 36.6 C 55 L 20 153/69 H 100 08/05/17 14:27 08/05/17 15:25 08/05/17 15:25 08/05/17 15:25 08/05/17 15:25 Laboratory Results 08/03/17 10:05 08/04/17 08/05/17 08/06/17 05:59 05:59 05:59 Intake Total 903 1876 Output Total 550 925 350 Balance 353 951 -350 PT 13.2 SEC (12.0-15.0) 08/03/17 10:05 INR 0.98 (0.83-1.16) 08/03/17 10:05 Physical Exam - Physical Exam General Appearance: alert, no apparent distress EENT: normal ENT inspection Neck: other (tracheostomy site with minimal fresh blood.) Respiratory: lungs clear, normal breath sounds Cardiac/Chest: regular rate, rhythm, No edema Abdomen: normal bowel sounds, non-tender Skin: normal color, warm/dry Extremities: normal inspection Neuro/Psych: No alert (sedated), No motor weakness ICD10 Worksheet Patient Problems: Problems Problem Status Onset Pneumonia Acute
[2017-08-05] MEDS: NS 1,000 ML IV SCH (16:35)
--- NOTE | 2017-08-05 16:36 | GCON ---
[f rep st] CONSULTATION PULMONARY/CRITICAL CARE CONSULTATION DATE OF CONSULTATION: 08/04/2017 REQUESTING PROVIDER: Aquiles Mercado MD REASON FOR REFERRAL: Evaluation and management of respiratory failure requiring intubation. HISTORY: The patient is a 72-year-old male with a history of squamous cell carcinoma of the tongue b ase, who is planning to start chemotherapy and radiation soon. He was admitted yesterday for G-tube placement per Radiology. This was unsuccessful and the patient underwent open insertion of a PEG tub e by Dr. Mercado. He was somewhat difficult to intubate due to the tumor so was kept intubated postope ratively. The tumor was somewhat friable and bleeding and was felt to pose a risk for airway patency . He currently denies any pain, is fairly comfortable with an endotracheal tube in and mechanically ventilated. PAST MEDICAL HISTORY: 1. Tongue base squamous cell carcinoma. 2. Hepatitis C. 3. History of Waldenstrom macroglobulinemia. 4. History of GI lymphoma. 5. Depression. ADMISSION MEDICATIONS: Include Lexapro and alprazolam. ALLERGIES: Penicillin. SOCIAL HISTORY: The patient has never smoked. He drinks alcohol occasionally. FAMILY HISTORY: Unremarkable. REVIEW OF SYSTEMS: A 10-point review of systems is unobtainable. PHYSICAL EXAMINATION: GENERAL: The patient is sedated but arousable. VITAL SIGNS: His blood press ure is 115/57 with a heart rate of 45. He is afebrile. Oxygen saturations are 100% on 40% oxygen. HEENT: Normocephalic and atraumatic. No icterus. He has an oral endotracheal tube. NECK: No davion opathy. Trachea is midline. CHEST: Clear to auscultation. CARDIAC: Regular rate and rhythm and r hythm without murmur. ABDOMEN: Soft, nontender. Bowel sounds are present. EXTREMITIES: No clubbi ng, cyanosis, or edema. NEUROLOGIC: The patient is sedated but does awaken and follows some simple commands. There is no gross motor weakness. LABORATORY: Hematocrit is 41.01. INR is 1.0. A chest x-ray shows clear lung castañeda and appropriate position of the endotracheal tube. Images revi ewed by me. ASSESSMENT: 1. Squamous cell carcinoma of the tongue. This is potentially curable with radiation and therapy wh ich is planned to start next week. 2. Respiratory failure. This is due to bleeding of his large upper airway tumor with airway comprom ise. He is currently stable on the ventilator with good gas exchange. 3. History of hepatitis C. 4. History of depression. RECOMMENDATIONS: The patient will be kept intubated. He has been seen by Dr. Red, who plans on d oing a tracheostomy tomorrow for airway protection prior to starting chemotherapy and radiation. /[id number]/MODL
--- NOTE | 2017-08-06 08:25 | SOAPPROG ---
SOAP Progress Note Assessment/Plan: pt s/p trach by Dr. solis yesterday. Pt stable. neck- trach in place with some bloody discharge. Plan: pt s/p trach ,stable. 08/06/17 08:24 Objective: Vital Signs Temp Pulse Resp BP Pulse Ox 37.3 C 61 20 120/59 L 100 08/05/17 20:00 08/06/17 08:00 08/06/17 08:00 08/06/17 08:00 08/06/17 08:00 Laboratory Results 08/03/17 10:05 08/05/17 08/06/17 08/07/17 05:59 05:59 05:59 Intake Total 1876 3060.6 Output Total 925 2600 Balance 951 460.6 PT 13.2 SEC (12.0-15.0) 08/03/17 10:05 INR 0.98 (0.83-1.16) 08/03/17 10:05 ICD10 Worksheet Patient Problems: Problems Problem Status Onset Pneumonia Acute
--- NOTE | 2017-08-06 08:39 | POSTANESTH ---
Post Anesthetic Evaluation Cardiovascular Status: Normal, Stable Respiratory Status: Normal, Stable Level of Consciousness/Mental Status: Can Participate in Eval, Mildly Sleepy, Arousable Pain Control: Adequate, Prn Tx Ordered Nausea/Vomiting Control: Adequate, Prn Tx Ordered Complications Possibly Related to Anesthesia: None Noted
[2017-08-06] MEDS: FAMOTIDINE 20 MG/NACL 50 ML IV SCH (09:13)
[2017-08-06] MEDS: CHLORHEXIDINE GLUCONATE 15 ML UDL PO SCH (09:13)
--- NOTE | 2017-08-06 09:30 | SOAPPROG ---
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 s/p open gastrostomy tube placement. now s/p tracheostomy for obstructive concerns. Tube site clean. Feedings started. Trach site clean, min serosanguinous drainage. Spent time explaining why he has the trach. S: writes "am I going to ?" O: alert, nonverbal with trach. writes legibly no wob abd soft see wound descriptions above 08/06/17 09:27 Objective: Vital Signs Temp Pulse Resp BP Pulse Ox 37.7 C 67 20 102/54 L 100 08/06/17 09:00 08/06/17 09:00 08/06/17 09:00 08/06/17 09:00 08/06/17 09:00 Laboratory Results 08/03/17 10:05 08/05/17 08/06/17 08/07/17 05:59 05:59 05:59 Intake Total 1876 3060.6 Output Total 925 2600 Balance 951 460.6 PT 13.2 SEC (12.0-15.0) 08/03/17 10:05 INR 0.98 (0.83-1.16) 08/03/17 10:05 ICD10 Worksheet Patient Problems: Problems Problem Status Onset Pneumonia Acute
--- NOTE | 2017-08-06 12:24 | PDINTPN ---
Academic Specialist Progress Note Assessment/Plan: Assessment: Squamous Cell Ca tongue base. Friable, obstructing airway Respiratory Failure: Due to upper airway obstruction. Now s/p trach. Dyspneic for unclear reasons. CXR normal yesterday afternoon. Tracheostomy: Doing well post-op, with minimal bleeding. Stable on vent. Plan: Wean sedation and increase activity. Trach collar/TP or RA. Will ask ST to evaluate for voicing trials. Increase activity. Tx to SDU. Pain meds via NGT. 08/06/17 12:27 Subjective: Thinks that he's going to . Feels dyspneic. Denies pain. Objective: Vital Signs Temp Pulse Resp BP Pulse Ox 37.7 C 76 18 113/54 L 99 08/06/17 09:00 08/06/17 11:06 08/06/17 11:06 08/06/17 10:00 08/06/17 11:06 Laboratory Results 08/03/17 10:05 08/05/17 08/06/17 08/07/17 05:59 05:59 05:59 Intake Total 1876 3060.6 Output Total 925 2600 Balance 951 460.6 PT 13.2 SEC (12.0-15.0) 08/03/17 10:05 INR 0.98 (0.83-1.16) 08/03/17 10:05 Physical Exam - Physical Exam General Appearance: alert, no apparent distress EENT: pharynx normal Neck: normal inspection Respiratory: lungs clear Cardiac/Chest: regular rate, rhythm, No edema Abdomen: normal bowel sounds, non-tender Skin: normal color, warm/dry Extremities: normal inspection Neuro/Psych: alert, normal mood/affect, oriented x 3 ICD10 Worksheet Patient Problems: Problems Problem Status Onset Pneumonia Acute
[2017-08-06] MEDS ORDERED: OXYCODONE/APAP 5/325 TAB PO PRN (12:25)
--- NOTE | 2017-08-06 13:15 | ASMTCMCOM ---
CM Note CM Note Notes: Patient had tracheostomy yesterday and is doing well post op. Plan to wean sedation today and increase patient activity. Patient to transfer to SDU today. D/C plan TBD. CM will follow. Date Signed: 08/06/2017 01:14 PM Electronically Signed By:Lilibeth Alex LCSW
--- NOTE | 2017-08-06 14:54 | GCON ---
[f rep st] CONSULTATION NEW ONCOLOGY CONSULTATION. Consulting physician is Dr. Neal. REASON FOR CONSULTATION: Patient known to Dr. Mario Roberson with stage T2 N0 M0 oropharyngeal cancer. HISTORY OF PRESENT ILLNESS: The patient is a 72-year-old gentleman, who has a remote history of Waldenstrom's macroglobulinemia, treated in 2003 with R-CVP, at which time he presented with an abdominal mass. He had a 30-pound weight loss. CT scan showed no evidence of disease. He was found to have an oropharyngeal mass in the left base of tongue. Ultimately, a biopsy with Dr. Peña showed squamous cell carcinoma about 3.5 cm in size, extending down to the epiglottis, making this a P2 T3 lesion. The patient did have a PET scan that showed the primary tumor, but no definite neck disease or distant metastatic disease. He is HPV positive. He has had some anxiety about PEG tube placement. Ultimately, he was admitted on 08/04 for this per Radiology. This was unsuccessful. The patient underwent open insertion of a PEG tube by Dr. Mercado. He was somewhat difficult to intubate due to the oropharyngeal tumor , so he was kept intubated postoperatively. The tumor was somewhat friable and bleeding. It was felt to pose a risk for airway patency and ultimately, he had a tracheostomy on 08/05/2017. The patient currently remains in the ICU with a tracheostomy and PEG tube. He is tolerating PEG tube feedings at this time and denies pain. The overall plan was radiation alone. PAST MEDICAL HISTORY: 1. Non-Hodgkin lymphoma, Waldenstrom's, status post treatment. 2. Oropharyngeal cancer. 3. Neutropenia. 4. Anorexia. 5. Hepatitis C. Has not been treated. Follows with Dr. Watkins. The plan ultimately is to be treated with Harvoni. 6. Weight loss. 7. Anxiety. FAMILY HISTORY: Noncontributory. ALLERGIES: Penicillin. MEDICATIONS: Current meds have been reviewed in the EMR. Only medications today are oxycodone and acetaminophen. PHYSICAL EXAMINATION: VITAL SIGNS: Today, blood pressure 130/65, pulse 72, respiratory rate 17, satting 100% on FiO2 of 33%. He has a trach. HEART: Regular rate and rhythm. LUNGS: Clear anteriorly. ABDOMEN: Soft. PEG tube evaluated. Clean, dry, and intact. LOWER EXTREMITIES: No significant edema. PSYCHIATRIC: Remains anxious. LABORATORY DATA: Most recent labs show no blood work today. ASSESSMENT: 1. 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 2. Hepatitis C. 3. Waldenstrom's macroglobulinemia. 4. Status post tracheostomy and gastrostomy tube. Tracheostomy for friable tumor. Patient currently being monitored in the hospital. PLAN: 1. 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 Red is staging the patient as T3N0. Dr. Roberson had planned for radiation alone, and he has been simulated by Dr. Brantley. Discussed with Dr. Brantley today. Re-simulation may not take long. Patient remains stable. He should be leaving the ICU today. Dr. Roberson discussed with me giving him a cycle of neoadj chemo in the hospital to buy us some time, but I am not entirely sure this is necessary, as I think he may be able to start radiation as soon as next week, and this would avoid toxicities of chemotherapy. The tumor will remain friable until treatment is ensued. We will discuss with both Dr. Brantley and Dr. Roberson today. Consider carbo/taxol vs TPF if felt chemo is needed. He is status post PEG as well as tracheostomy; doing well from this standpoint. 2. Hepatitis C: Dr. Watkins plans to treat him later. No risk of reactivating the hepatitis with radiation alone. Unlikely to reactivate w chemo. 3. Diffuse anxiety: This has been an ongoing issue. P.r.n. benzodiazepine. 4. Discharge: Possibly discharge home. Will need trach and PEG tube teaching. We will continue to follow in the hospital. More than 30 minutes were spent with the patient, more than 50% of the time in counseling, coordinating care, and discussing with Dr. Brantley and Dr. Roberson. /[id number]/MODL MTDD
--- NOTE | 2017-08-06 17:55 | SOAPPROG ---
SOAP Progress Note Assessment/Plan: Assessment: Plan: 08/06/17 17:54 pt resting quietly Trach function excellent minimal drainage. Will change track to size 6 cuffless fenestrated on Stable POD # 1 Objective: Vital Signs Temp Pulse Resp BP Pulse Ox 37.4 C 67 17 139/76 H 100 08/06/17 16:00 08/06/17 16:00 08/06/17 16:00 08/06/17 16:00 08/06/17 16:00 Laboratory Results 08/03/17 10:05 08/05/17 08/06/17 08/07/17 05:59 05:59 05:59 Intake Total 1876 3060.6 2036 Output Total 925 2600 550 Balance 951 460.6 1486 PT 13.2 SEC (12.0-15.0) 08/03/17 10:05 INR 0.98 (0.83-1.16) 08/03/17 10:05 ICD10 Worksheet Patient Problems: Problems Problem Status Onset Pneumonia Acute
--- NOTE | 2017-08-07 12:25 | PDINTPN ---
Pipe Organ Installer Progress Note Assessment/Plan: Assessment: Squamous Cell Ca tongue base. Friable, obstructing airway Respiratory Failure: Due to upper airway obstruction. Now s/p trach. Dyspneic for unclear reasons. RR 20, unlabored, sats OK on RA Tracheostomy: Doing well post-op, with minimal bleeding. Stable on RA Plan: Will ask ST to evaluate for voicing trials. Increase activity. Tx to Onc. Pain meds via NGT. 08/07/17 12:24 08/07/17 12:25 Subjective: C/O dyspnea. No cough, pain Objective: Vital Signs Temp Pulse Resp BP Pulse Ox 37.4 C 65 19 154/77 H 97 08/07/17 08:05 08/07/17 12:11 08/07/17 12:11 08/07/17 12:11 08/07/17 12:11 Laboratory Results 08/03/17 10:05 08/06/17 08/07/17 08/08/17 05:59 05:59 05:59 Intake Total 3060.6 3000 Output Total 2600 1400 320 Balance 460.6 1600 -320 PT 13.2 SEC (12.0-15.0) 08/03/17 10:05 INR 0.98 (0.83-1.16) 08/03/17 10:05 Physical Exam - Physical Exam General Appearance: alert, no apparent distress EENT: normal ENT inspection Neck: other (trach site OK) Respiratory: chest non-tender, lungs clear Cardiac/Chest: normal peripheral pulses, regular rate, rhythm Abdomen: normal bowel sounds, non-tender Skin: normal color, warm/dry Extremities: normal inspection Neuro/Psych: alert, normal mood/affect (depressed) ICD10 Worksheet Patient Problems: Problems Problem Status Onset Pneumonia Acute
--- NOTE | 2017-08-07 12:48 | SOAPPROG ---
SOAP Progress Note Assessment/Plan: E&M for H&N cancer * Stage II (T2 N0) HPV+, squamous Cell Ca of base of tongue base: Had airway obstruction now s/p trach. No bleeding. Primary therapy is single agent radiation. If there is need to shrink the cancer prior to radiation, can consider carbo/taxol x 1-2 cycles. Would not use TPF as too toxic. Agree with increasing activity and speech consult. I believe rad onc will see him on wednesday. Subjective: Unable to speak. Seems frustrated with me but won't right questions down. C/O fatigue. Objective: Vital Signs Temp Pulse Resp BP Pulse Ox 37.4 C 65 19 154/77 H 97 08/07/17 08:05 08/07/17 12:11 08/07/17 12:11 08/07/17 12:11 08/07/17 12:11 Laboratory Results 08/03/17 10:05 08/06/17 08/07/17 08/08/17 05:59 05:59 05:59 Intake Total 3060.6 3000 Output Total 2600 1400 320 Balance 460.6 1600 -320 PT 13.2 SEC (12.0-15.0) 08/03/17 10:05 INR 0.98 (0.83-1.16) 08/03/17 10:05 Physical Exam - Physical Exam General Appearance: alert Neck: other (trach in place) Respiratory: lungs clear Cardiac/Chest: regular rate, rhythm Abdomen: normal bowel sounds, non-tender, soft, other (Tolerating tube feedings) ICD10 Worksheet Patient Problems: Problems Problem Status Onset Pneumonia Acute
[2017-08-07] MEDS ORDERED: ESCITALOPRAM OXALATE 10 MG TAB PO SCH (16:15)
[2017-08-07] MEDS: ESCITALOPRAM OXALATE 10 MG TAB TUBE SCH (17:15)
[2017-08-07] MEDS: ACETAMINOPHEN 650 MG/20.3 ML UDCUP PO PRN ×2 (18:10→22:29)
[2017-08-08] MEDS: ESCITALOPRAM OXALATE 10 MG TAB TUBE SCH (08:02)
[2017-08-08] MEDS: ACETAMINOPHEN 650 MG/20.3 ML UDCUP PO PRN (08:03)
--- NOTE | 2017-08-08 09:34 | SOAPPROG ---
SOAP Progress Note Assessment/Plan: Assessment: MUCH BETTER TODAY/ AFEBRILE NOW/ GASTROSTOMY WORKING WELL Plan:RAD RX 08/08/17 09:33 Objective: Vital Signs Temp Pulse Resp BP Pulse Ox 37.7 C 76 20 160/81 H 94 08/08/17 07:55 08/08/17 07:55 08/08/17 07:55 08/08/17 07:55 08/08/17 07:55 Laboratory Results 08/03/17 10:05 08/07/17 08/08/17 08/09/17 05:59 05:59 05:59 Intake Total 3000 2128 75 Output Total 1400 670 Balance 1600 1458 75 PT 13.2 SEC (12.0-15.0) 08/03/17 10:05 INR 0.98 (0.83-1.16) 08/03/17 10:05 ICD10 Worksheet Patient Problems: Problems Problem Status Onset Pneumonia Acute
[2017-08-08] MEDS ORDERED: POLYETHYLENE GLYCOL 3350 17 GM PKT PO PRN (13:31)
[2017-08-08] MEDS ORDERED: ALPRAZolam 0.5 MG TAB PO PRN (15:57)
[2017-08-08] MEDS: POLYETHYLENE GLYCOL 3350 17 GM PKT TUBE PRN (17:16)
[2017-08-08] MEDS: SENNOSIDES 17.6 MG/10 ML UDL TUBE SCH (21:13)
[2017-08-08] MEDS: OXYCODONE/APAP 5/325 TAB TUBE PRN (23:16)
[2017-08-08 23:30] LABS: PLATELET COUNT 157 10^3/uL (150-400)
[2017-08-08 23:36] LABS: INR 1.1 (0.83-1.16); PROTIME(PATIENT) 14.4 SEC (12.0-15.0)
[2017-08-09] MEDS: ESCITALOPRAM OXALATE 10 MG TAB TUBE SCH (09:19)
[2017-08-09] MEDS: SENNOSIDES 17.6 MG/10 ML UDL TUBE SCH ×2 (09:19→22:08)
--- NOTE | 2017-08-09 10:05 | SOAPPROG ---
SOAP Progress Note Assessment/Plan: Assessment: 72 y/o male with history of lymphoma and now with head and neck CA. S/p g-tube placement Now s/p tracheostomy placement S: Nonverbal for the most part, but did mouth "tired" to me. O: sleepy during visit RRR No WOB Abdomen soft, nontender. G-tube with dressing cdi. Tube feeding during visit Plan: Pt doing well from a surgical standpoint. Tolerating tube feedings well. Will continue to follow. 08/09/17 10:02 Objective: Vital Signs Temp Pulse Resp BP Pulse Ox 38.4 C H 77 20 141/64 H 93 08/09/17 07:32 08/09/17 08:00 08/09/17 08:00 08/09/17 08:00 08/09/17 08:00 Microbiology 08/08/17 23:00 - Final Sputum, Expectorated Laboratory Results 08/08/17 23:00 08/08/17 23:00 08/08/17 08/09/17 08/10/17 05:59 05:59 05:59 Intake Total 2128 1997 190 Output Total 670 750 100 Balance 1458 1247 90 PT 14.4 SEC (12.0-15.0) 08/08/17 23:00 INR 1.10 (0.83-1.16) 08/08/17 23:00 ICD10 Worksheet Patient Problems: Problems Problem Status Onset Pneumonia Acute
--- NOTE | 2017-08-09 12:32 | SOAPPROG ---
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 No bleeding. Primary therapy is single agent radiation. If there is need to shrink the cancer prior to radiation, can consider carbo/taxol x 1-2 cycles. Would not use TPF as too toxic. Agree with increasing activity and speech consult. Discussed case with RT, they are trying to get him in for simulation tomorrow. Low grade fever Subjective: Unable to speak. Tired. 08/09/17 12:29 08/09/17 12:33 Subjective: Non verbal, tired Objective: Vital Signs Temp Pulse Resp BP Pulse Ox 101.2 F H 77 20 141/64 H 93 08/09/17 07:32 08/09/17 08:00 08/09/17 08:00 08/09/17 08:00 08/09/17 08:00 Microbiology 08/08/17 23:00 - Final Sputum, Expectorated Laboratory Results 08/08/17 23:00 08/08/17 23:00 08/08/17 08/09/17 08/10/17 05:59 05:59 05:59 Intake Total 2128 1997 190 Output Total 670 750 100 Balance 1458 1247 90 PT 14.4 SEC (12.0-15.0) 08/08/17 23:00 INR 1.10 (0.83-1.16) 08/08/17 23:00 Physical Exam - Physical Exam General Appearance: alert, mild distress Neck: other (trscheostomy) Respiratory: normal breath sounds Cardiac/Chest: regular rate, rhythm Abdomen: normal bowel sounds, other (G tube) ICD10 Worksheet Patient Problems: Problems Problem Status Onset Pneumonia Acute
--- NOTE | 2017-08-09 15:28 | ASMTCMCOM ---
CM Note CM Note Notes: Spoke to patient and his sister, Zeina who lives in [place]. Patient has a new a new trach, PEG tube and will be getting daily radiation for the next 7wks. Set up [facility] transport for today's radiation appt 3:15. Patient may transfer to after radiation. Not a SNF candidate due to new trach, not In-pt Rehab candidate due to radiation, also not LTAC appropiate due to daily transport for radiation. Date Signed: 08/09/2017 03:28 PM Electronically Signed By:Edie More LCSW
[2017-08-09] MEDS ORDERED: ALPRAZolam 1 MG TAB PO PRN (16:41)
[2017-08-09] MEDS: ACETAMINOPHEN 650 MG/20.3 ML UDCUP TUBE PRN (16:44)
--- NOTE | 2017-08-09 17:05 | SOAPPROG ---
SOAP Progress Note Assessment/Plan: Assessment/Plan: Patient doing well. Excellent trach function with minimal drainage. Trach changed to 6.[address] Red without difficulty. Will defer to respiratory for further management. We will plan to see patient only as needed at this point. Patient was evaluated by Dr. Red today. 08/09/17 17:03 Objective: Vital Signs Temp Pulse Resp BP Pulse Ox 39.5 C H 80 17 156/72 H 93 08/09/17 16:29 08/09/17 16:29 08/09/17 16:29 08/09/17 16:29 08/09/17 16:29 Microbiology 08/08/17 23:00 - Final Sputum, Expectorated Laboratory Results 08/08/17 23:00 08/08/17 23:00 08/08/17 08/09/17 08/10/17 05:59 05:59 05:59 Intake Total 2128 1997 1676 Output Total 670 750 400 Balance 1458 1247 1276 PT 14.4 SEC (12.0-15.0) 08/08/17 23:00 INR 1.10 (0.83-1.16) 08/08/17 23:00 ICD10 Worksheet Patient Problems: Problems Problem Status Onset Pneumonia Acute
[2017-08-09] MEDS: CEFEPIME HCL 1 GM in STERILE WATER INJ 11.3 ML IV SCH ×2 (18:29→22:19)
[2017-08-09 18:43] LABS: PLATELET COUNT 178 10^3/uL (150-400)
--- NOTE | 2017-08-09 20:23 | GCON ---
[f rep st] CONSULTATION HISTORY OF PRESENTING ILLNESS: The patient is a pleasant 72-year-old gentleman with a history of GI lymphoma and Waldenstrom macroglobulinemia with recently diagnosed squamous cell cancer of the tongue. He was electively admitted for placement of a G tube by IR, which was unable to be accomplished. He had an operative tube placed by Dr. Aquiles Mercado. Given the challenge of intubation for that surgery, he was left intubated and then tracheostomy was placed by ENT. The operative G-tube was placed on the and the trach was placed on the . I am now asked to see him for the development of fevers. When I see the patient, he is unable to talk because of his recent trach. He has had low-grade temperatures going back about 48 hours. He has no pain anywhere. His PEG site is clean, dry and intact. He has purulent sputum coming from his tracheostomy. He has no urinary symptoms. He is alert and conversant. REVIEW OF SYSTEMS: Complete 10-point review of systems conducted, negative except as noted in the HPI. PAST MEDICAL HISTORY: GI lymphoma, squamous cell cancer of the tongue, Waldenstrom macroglobulinemia. This is a chart history of hepatitis C, although he denies. ALLERGIES: Penicillins, to which he gets a rash. HOME MEDICATIONS: Xanax, escitalopram, senna. SOCIAL HISTORY: No tobacco, no alcohol. Lives in [place]. FAMILY HISTORY: Reviewed and unremarkable. PHYSICAL EXAMINATION: VITAL SIGNS: Temp 38.9 at 8 p.m. last night, 38.4 now. Blood pressure 141/64, pulse 86, breathing 20 times a minute, 93% on room air. GENERAL: No acute distress. HEENT: Sclerae anicteric. Oropharynx clear. There is purulent sputum coming out of his trach. There is no surrounding erythema, although it is somewhat obscured by the collar. NECK: Supple. LUNGS: Rhonchorous anterolaterally, particularly in the left bases. HEART: S1, S2. Not tachycardic. ABDOMEN: Soft. His G-tube site is clean, dry and intact. There is no rebound or guarding. LOWER EXTREMITIES: Without edema. Calves are nontender. SKIN: Without rash. NEUROLOGIC: Nonfocal. LABORATORY DATA: Sodium is 134, potassium 3.6, chloride 99, bicarb 27, BUN 18, creatinine 0.7, glucose 121, calcium 8.2. Coags normal. White count 10, hematocrit 36, platelets are 157,000. Chest x-ray performed last evening, interpreted by me, shows bilateral lower lobe infiltrates that are opacities that are somewhat flat, look an awful lot like atelectasis, but should be considered to be possibly consistent with pneumonia, given the overall clinical setting. I have discussed the case with Dr. Aquiles Mercado. ASSESSMENT AND PLAN: This is a 72-year-old gentleman with multiple medical problems, recent diagnosis of squamous cell cancer of the tongue, now with fever , purulent sputum, and abnormal chest x-ray. 1. Nosocomial pneumonia. The patient has a fever. He has an abnormal chest x- ray and purulent sputum in the setting of recent tracheostomy, and I believe this is appropriate to start him on antibiotics for nosocomial coverage. I think we can forego atypical coverage. I will go ahead and start him on cefepime. Penicillin allergy noted. He does have a Gram stain of his sputum that shows gram-positive cocci in chains, gram-positive cocci in clusters, but the 3+ are chains and diplococci, so I think we can hold off on vancomycin coverage at this time. I have drawn blood cultures. 2. Hyponatremia. This is mild. Will follow daily. He is started on tube feeds. 3. Prophylaxis. The patient is not on low-molecular heparin at this point in time. It may be reasonable to continue if there is no bleeding from his tracheostomy site. 4. Squamous cell carcinoma of the tongue. He started radiation therapy today. 5. Disposition: Inpatient status. Thank you for the consultation. Hospital Medicine will follow with you. /[id number]/MODL MTDD
[2017-08-09] MEDS: OXYCODONE/APAP 5/325 TAB TUBE PRN (22:13)
[2017-08-10 05:05] LABS: PLATELET COUNT 154 10^3/uL (150-400)
[2017-08-10] MEDS: CEFEPIME HCL 1 GM in STERILE WATER INJ 11.3 ML IV SCH ×3 (06:21→20:50)
--- NOTE | 2017-08-10 08:58 | WOCRNPDOC ---
WOCRN Advanced Assessment Note - Skin Integrity Problem, Advanced Assess Medial Neck Tracheostomy Site Dressing Type: Polymem Dressing Description: Saturated Exudate Amount: Moderate Exudate Color: Yellow Exudate Characteristic(s): Mucous Integumentary Issue Intervention: Dressing Changed Marva Wound Tissue: Blanching, Erythema, Intact Marva Wound Swelling: None Wound Bed Color: Brown Wound Bed Constitution: Scab Site Odor: None Site Measurement - Head-to-Toe Length X Width X Depth (cm): see note Skin Integrity Problem Comment: Two, discrete scabs on anterior lower neck, location consistent w/ sutures from trach face plate. Both scabbed areas are intact w/ blanching erythema surrounding. There is also some denuded skin just distal to trach os r/t moisture from mucous. Recommend applying skin prep daily over the skin before application of Polymem dressing. RT Estefani assisting, and report given to back hoe machine operatorKETTY Bustos.
[2017-08-10] MEDS: ESCITALOPRAM OXALATE 10 MG TAB TUBE SCH (09:26)
[2017-08-10] MEDS: SENNOSIDES 17.6 MG/10 ML UDL TUBE SCH ×3 (09:26→20:51)
[2017-08-10] MEDS: POLYETHYLENE GLYCOL 3350 17 GM PKT TUBE PRN (09:26)
[2017-08-10] MEDS ORDERED: ALPRAZolam 1 MG TAB TUBE PRN (11:30)
--- NOTE | 2017-08-10 12:31 | SOAPPROG ---
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 No bleeding. Primary therapy is single agent radiation. Agree with increasing activity and speech consult. Discussed case with RT, they are working on a treatment plan, will start when that has been completed * Fever/PNA- on cefepime Subjective: Tired.Speaking a few words 08/09/17 12:29 08/09/17 12:33 08/10/17 12:28 Objective: Vital Signs Temp Pulse Resp BP Pulse Ox 98.6 F 65 18 105/64 95 08/10/17 12:09 08/10/17 12:09 08/10/17 12:09 08/10/17 12:09 08/10/17 12:09 Microbiology 08/08/17 23:00 - Final Sputum, Expectorated Laboratory Results 08/10/17 04:44 08/10/17 04:44 08/09/17 08/10/17 08/11/17 05:59 05:59 05:59 Intake Total 1996 2748 120 Output Total 750 900 Balance 1247 1848 120 PT 14.4 SEC (12.0-15.0) 08/08/17 23:00 INR 1.10 (0.83-1.16) 08/08/17 23:00 Physical Exam - Physical Exam General Appearance: mild distress Neck: other (trach) Respiratory: decreased breath sounds Cardiac/Chest: regular rate, rhythm Abdomen: normal bowel sounds, other (g tube) ICD10 Worksheet Patient Problems: Problems Problem Status Onset Pneumonia Acute
--- NOTE | 2017-08-10 14:51 | HOSPPROG ---
Hospitalist Progress Note Assessment/Plan: 72 yo M w SCC of tongue, fever fever: reasonably attributed to tracheitis SCC: radiation AHRF: multifactorial proph: lmwh dispo: inpt Subjective: case d/w dr villarreal. cxr w improved airspace disease (interp by me) Objective: Vital Signs Temp Pulse Resp BP Pulse Ox 37.0 C 62 18 117/61 96 08/10/17 12:09 08/10/17 14:32 08/10/17 14:32 08/10/17 14:32 08/10/17 14:32 Microbiology 08/08/17 23:00 - Final Sputum, Expectorated Laboratory Results 08/10/17 04:44 08/10/17 04:44 08/09/17 08/10/17 08/11/17 05:59 05:59 05:59 Intake Total 1996 2748 120 Output Total 750 900 Balance 1247 1848 120 PT 14.4 SEC (12.0-15.0) 08/08/17 23:00 INR 1.10 (0.83-1.16) 08/08/17 23:00 - Physical Exam Constitutional: no apparent distress, appears nourished Eyes: PERRL, anicteric sclera Ears, Nose, Mouth, Throat: moist mucous membranes, hearing normal Cardiovascular: regular rate and rhythym, no murmur, rub, or gallop Respiratory: no respiratory distress, no rales or rhonchi Gastrointestinal: normoactive bowel sounds, soft, non-tender abdomen Genitourinary: no bladder fullness, No amaya in urethra Skin: warm, normal color Musculoskeletal: full muscle strength Neurologic: AAOx3 ICD10 Worksheet Patient Problems: Problems Problem Status Onset Pneumonia Acute
--- NOTE | 2017-08-10 16:17 | PDINTPN ---
Supervisor Treating And Pumping Progress Note Assessment/Plan: Assessment. Squamous Cell Ca tongue base. Friable, obstructing airway. Status post tracheostomy. Receiving radiation treatments daily. Respiratory Failure: Due to upper airway obstruction. Now s/p trach. Doing well. No secretions. Denies shortness of breath. Able to talk with the tracheostomy tube capped. Pneumonia/atelectasis. On cefepime. Chest x-ray improved. Nutrition: Status post G-tube placement. On tube feeding. Plan: Continue care in the ICU on step-down status today. Possibly back to [address] [place] [address] tomorrow. Continue radiation treatments. Continue antibiotics. Add nebs to encourage sputum clearance. Continue tube feedings through the gastrostomy tube. Follow laboratory and chest x-ray intermittently. Subjective: Patient moved back to the ICU secondary to fevers and possible pneumonia after briefly being down on [address] [place] [address] yesterday. Doing okay, weak. Denies shortness of breath or significant cough/secretions currently. Objective: Vital Signs Temp Pulse Resp BP Pulse Ox 37.0 C 62 18 117/61 84 L 08/10/17 12:09 08/10/17 14:32 08/10/17 14:32 08/10/17 14:32 08/10/17 14:35 Microbiology 08/08/17 23:00 - Final Sputum, Expectorated Laboratory Results 08/10/17 04:44 08/10/17 04:44 08/09/17 08/10/17 08/11/17 05:59 05:59 05:59 Intake Total 1996 2748 120 Output Total 750 900 Balance 1247 1848 120 PT 14.4 SEC (12.0-15.0) 08/08/17 23:00 INR 1.10 (0.83-1.16) 08/08/17 23:00 CXR: Bibasilar atelectasis, left greater than right. Relatively minor/mild Physical Exam - Physical Exam General Appearance: no apparent distress, thin EENT: PERRL/EOMI, other (Tracheostomy tube in place, capped) Respiratory: lungs clear (Coarse breath sounds), decreased breath sounds (At bases), rales (Few rales present at the bases), No rhonchi, No wheezing Cardiac/Chest: regular rate, rhythm Abdomen: non-tender, soft, No normal bowel sounds (Decreased, present. Peg tube in place) Skin: normal color, warm/dry Extremities: pedal edema (Trace) Neuro/Psych: no motor/sensory deficits (Moves all extremities equally - appears quite weak), No cognition abnormalities ICD10 Worksheet Patient Problems: Problems Problem Status Onset Pneumonia Acute
[2017-08-10] MEDS ORDERED: ALBUTEROL 3 ML DEYVIAL IH PRN (16:26)
--- NOTE | 2017-08-10 17:54 | SOAPPROG ---
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 s/p open gastrostomy tube placement. now s/p tracheostomy for obstructive concerns. Tube site clean. Feedings started. Trach site clean, min serosanguinous drainage. Abx started for likely PNA. Oncology, ENT, and damage appraiser involved. RT to hopefully start soon. Appreciate medicine taking over primary role. S: thought that he was going to . very glad he didn't. is optimistic today. O: alert, verbal, nad, weak appearing no wob abd soft, inc cdi, gtube site clean. 08/10/17 17:52 Objective: Vital Signs Temp Pulse Resp BP Pulse Ox 37.2 C 58 L 18 110/65 96 08/10/17 16:00 08/10/17 16:00 08/10/17 16:00 08/10/17 16:00 08/10/17 16:00 Microbiology 08/08/17 23:00 - Final Sputum, Expectorated Laboratory Results 08/10/17 04:44 08/10/17 04:44 08/09/17 08/10/17 08/11/17 05:59 05:59 05:59 Intake Total 1996 1571 873 Output Total 750 900 Balance 1247 1848 873 PT 14.4 SEC (12.0-15.0) 08/08/17 23:00 INR 1.10 (0.83-1.16) 08/08/17 23:00 ICD10 Worksheet Patient Problems: Problems Problem Status Onset Pneumonia Acute
[2017-08-10] MEDS: ACETAMINOPHEN 650 MG/20.3 ML UDCUP TUBE PRN (20:49)
[2017-08-10] MEDS: ALPRAZolam 0.5 MG TAB TUBE PRN (22:27)
[2017-08-10] MEDS ORDERED: ALPRAZolam 0.5 MG TAB TUBE PRN (22:30)
[2017-08-11] MEDS: OXYCODONE/APAP 5/325 TAB TUBE PRN ×2 (04:51→19:49)
[2017-08-11] MEDS: CEFEPIME HCL 1 GM in STERILE WATER INJ 11.3 ML IV SCH (05:11)
[2017-08-11] MEDS: SENNOSIDES 17.6 MG/10 ML UDL TUBE SCH ×2 (09:27→19:56)
[2017-08-11] MEDS: ENOXAPARIN 40 MG/0.4 ML SYR SC SCH (09:27)
[2017-08-11] MEDS: ESCITALOPRAM OXALATE 10 MG TAB TUBE SCH (09:27)
[2017-08-11] MEDS: ACETAMINOPHEN 650 MG/20.3 ML UDCUP TUBE PRN (10:54)
--- NOTE | 2017-08-11 10:54 | SOAPPROG ---
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 s/p open gastrostomy tube placement. now s/p tracheostomy for obstructive concerns. Seen by me yesterday evening. Sleeping comfortably this am. Decided not to awaken. Tolerating tube feeds. Trach and Gtube site and incisions were clean yesterday. No new input from our team. Again, appreciate medicine taking over primary. ENT, oncology, lending advisor following. Please contact us if any questions or concerns today. Will continue to follow. 08/11/17 10:52 Objective: Vital Signs Temp Pulse Resp BP Pulse Ox 36.4 C 54 L 14 101/53 L 98 08/11/17 09:25 08/11/17 09:25 08/11/17 09:25 08/11/17 09:25 08/11/17 09:25 Microbiology 08/08/17 23:00 - Final Sputum, Expectorated Laboratory Results 08/10/17 04:44 08/10/17 04:44 08/10/17 08/11/17 08/12/17 05:59 05:59 05:59 Intake Total 2748 1966 Output Total 900 500 125 Balance 1848 1466 -125 PT 14.4 SEC (12.0-15.0) 08/08/17 23:00 INR 1.10 (0.83-1.16) 08/08/17 23:00 ICD10 Worksheet Patient Problems: Problems Problem Status Onset Pneumonia Acute
--- NOTE | 2017-08-11 11:17 | HOSPPROG ---
Hospitalist Progress Note Assessment/Plan: 72 yo M w SCC of tongue, fever fever: reasonably attributed to tracheitis sputum w nicholson sens Klebsiella, change to ceftriaxone day 3/5 abx SCC: radiation AHRF: multifactorial improving constipation: miralax proph: lmwh dispo: inpt Subjective: case discussed w Orly Fuentes, gen surgery PA Objective: Vital Signs Temp Pulse Resp BP Pulse Ox 36.4 C 54 L 14 101/53 L 98 08/11/17 09:25 08/11/17 09:25 08/11/17 09:25 08/11/17 09:25 08/11/17 09:25 Microbiology 08/08/17 23:00 - Final Sputum, Expectorated Laboratory Results 08/10/17 04:44 08/10/17 04:44 08/10/17 08/11/17 08/12/17 05:59 05:59 05:59 Intake Total 2748 1966 Output Total 900 500 125 Balance 1848 1466 -125 PT 14.4 SEC (12.0-15.0) 08/08/17 23:00 INR 1.10 (0.83-1.16) 08/08/17 23:00 - Physical Exam Constitutional: no apparent distress, appears nourished Eyes: PERRL, anicteric sclera Ears, Nose, Mouth, Throat: moist mucous membranes, hearing normal Cardiovascular: regular rate and rhythym, no murmur, rub, or gallop Respiratory: no respiratory distress, no rales or rhonchi, other (wet upper airway sounds, good air movement) Genitourinary: No amaya in urethra Skin: warm, normal color Musculoskeletal: full muscle strength Neurologic: AAOx3 ICD10 Worksheet Patient Problems: Problems Problem Status Onset Pneumonia Acute
--- NOTE | 2017-08-11 12:29 | SOAPPROG ---
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 No bleeding. Primary therapy is single agent radiation. Agree with increasing activity and speech consult. Discussed case with RT, they are working on a treatment plan, will start when that has been completed * Fever/PNA/tracheitis- growing klebsiella, on ceftriaxone Subjective: Tired able to speak 08/09/17 12:29 08/09/17 12:33 08/10/17 12:28 08/11/17 12:26 Objective: Vital Signs Temp Pulse Resp BP Pulse Ox 97.9 F 55 L 14 97/50 L 95 08/11/17 12:21 08/11/17 12:21 08/11/17 12:21 08/11/17 12:21 08/11/17 12:21 Microbiology 08/08/17 23:00 - Final Sputum, Expectorated Sputum Culture - Final Klebsiella Oxytoca/Raoutella Laboratory Results 08/10/17 04:44 08/10/17 04:44 08/10/17 08/11/17 08/12/17 05:59 05:59 05:59 Intake Total 2748 1966 Output Total 900 500 125 Balance 1848 1466 -125 PT 14.4 SEC (12.0-15.0) 08/08/17 23:00 INR 1.10 (0.83-1.16) 08/08/17 23:00 ICD10 Worksheet Patient Problems: Problems Problem Status Onset Pneumonia Acute
--- NOTE | 2017-08-11 14:47 | ASMTCMCOM ---
FABIANA Note FABIANA Note Notes: [facility] dropped of patient's schedule for radiation treatments. Patient may be transferred to today. If patient transfers, the schedule will be given to FABIANA Vazquez and the on that floor.Patient's first appointment is on 08-13-2017. Will set appointment transport up tomorrow when we know if patient remains in ICU or transfers to . CM will follow. Date Signed: 08/11/2017 02:46 PM Electronically Signed By:Lilibeth Alex LCSW
--- NOTE | 2017-08-11 16:34 | SOAPPROG ---
SOAP Progress Note Assessment/Plan: Assessment. Squamous Cell Ca base of tongue. Friable, obstructing airway. Status post tracheostomy. Radiation treatments currently on hold. Respiratory Failure: Due to upper airway obstruction. Now s/p trach. Doing well. Some secretions present. Cultures positive for multi sensitive Klebsiella. Denies shortness of breath. Able to talk with the tracheostomy tube capped. Pneumonia/atelectasis. On ceftriaxone. Chest x-ray improved. Aspiration: Documented by esophagram. Secondary to his tongue cancer and to the fixation of the trachea by the tracheostomy tube. He will need to be NPO for now. Nutrition: Status post G-tube placement. On tube feeding. Plan: Can transfer back to Oncology med/surg when bed available. Radiation treatments per oncology. Continue antibiotics. Continue nebulized treatments. Encourage cough for mucus clearance. Increase ambulation as tolerated.. Continue tube feedings through the gastrostomy tube. Follow laboratory and chest x-ray intermittently. Subjective: Denies shortness of breath or significant pain. Objective: Vital Signs Temp Pulse Resp BP Pulse Ox 36.4 C 60 19 124/68 H 99 08/11/17 15:16 08/11/17 15:16 08/11/17 15:16 08/11/17 15:16 08/11/17 15:16 Microbiology 08/08/17 23:00 - Final Sputum, Expectorated Sputum Culture - Final Klebsiella Oxytoca/Raoutella Laboratory Results 08/10/17 04:44 08/10/17 04:44 08/10/17 08/11/17 08/12/17 05:59 05:59 05:59 Intake Total 2748 1966 50 Output Total 900 500 125 Balance 1848 1466 -75 PT 14.4 SEC (12.0-15.0) 08/08/17 23:00 INR 1.10 (0.83-1.16) 08/08/17 23:00 Esophagram: Failed. Had evidence of aspiration with all consistency food/ fluids Physical Exam - Physical Exam General Appearance: alert, no apparent distress, thin, other (Up in chair) EENT: PERRL/EOMI Neck: other (Tracheostomy tube in place, capped. Some yellowish secretions around trach site) Respiratory: lungs clear (Peripherally), rhonchi (Centrally at the level of his trachea/tracheostomy) Cardiac/Chest: regular rate, rhythm Abdomen: normal bowel sounds, non-tender, soft, other (Peg tube in place) Skin: normal color, warm/dry Extremities: No pedal edema Neuro/Psych: no motor/sensory deficits, No cognition abnormalities ICD10 Worksheet Patient Problems: Problems Problem Status Onset Pneumonia Acute
[2017-08-11] MEDS: ALPRAZolam 0.5 MG TAB TUBE PRN (19:49)
[2017-08-12] MEDS: ENOXAPARIN 40 MG/0.4 ML SYR SC SCH (08:52)
[2017-08-12] MEDS: ESCITALOPRAM OXALATE 10 MG TAB TUBE SCH (08:53)
[2017-08-12] MEDS: SENNOSIDES 17.6 MG/10 ML UDL TUBE SCH ×2 (08:53→21:02)
--- NOTE | 2017-08-12 10:14 | SOAPPROG ---
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 No bleeding. Primary therapy is single agent radiation. Discussed case with RT, plan is simulation tomorrow and start rt on wednesday * Fever/PNA/tracheitis- growing klebsiella, on ceftriaxone * aspiration severe, npo, continue tube feedings * pain trach site, try scheduled oxycodone every 6 hours, discussed with pharmacy * social, lives by himself will need sig care, possibly snf Subjective: Tired able to speak, c/o pain with any manipulation trach site 08/09/17 12:29 08/09/17 12:33 08/10/17 12:28 08/11/17 12:26 08/12/17 10:06 Objective: Vital Signs Temp Pulse Resp BP Pulse Ox 98.6 F 67 15 127/74 H 91 L 08/12/17 07:59 08/12/17 07:59 08/12/17 07:59 08/12/17 07:59 08/12/17 07:59 Microbiology 08/08/17 23:00 - Final Sputum, Expectorated Sputum Culture - Final Klebsiella Oxytoca/Raoutella Laboratory Results 08/10/17 04:44 08/10/17 04:44 08/11/17 08/12/17 08/13/17 05:59 05:59 05:59 Intake Total 1966 1935 Output Total 500 525 Balance 1466 1410 PT 14.4 SEC (12.0-15.0) 08/08/17 23:00 INR 1.10 (0.83-1.16) 08/08/17 23:00 Physical Exam - Physical Exam General Appearance: alert, mild distress, cachetic Neck: other (trach site appears clean, some secretions) Respiratory: normal breath sounds Cardiac/Chest: regular rate, rhythm Abdomen: normal bowel sounds, other (g tube) ICD10 Worksheet Patient Problems: Problems Problem Status Onset Pneumonia Acute
[2017-08-12] MEDS: oxyCODONE IR 5 MG TAB TUBE SCH ×2 (11:41→17:54)
--- NOTE | 2017-08-12 14:28 | HOSPPROG ---
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 AHRF: multifactorial improving constipation: miralax proph: lmwh dispo: inpt Subjective: afebrile Objective: Vital Signs Temp Pulse Resp BP Pulse Ox 37.0 C 67 15 127/74 H 91 L 08/12/17 07:59 08/12/17 07:59 08/12/17 07:59 08/12/17 07:59 08/12/17 07:59 Microbiology 08/08/17 23:00 - Final Sputum, Expectorated Sputum Culture - Final Klebsiella Oxytoca/Raoutella Laboratory Results 08/10/17 04:44 08/10/17 04:44 08/11/17 08/12/17 08/13/17 05:59 05:59 05:59 Intake Total 1966 1935 300 Output Total 500 525 150 Balance 1466 1410 150 PT 14.4 SEC (12.0-15.0) 08/08/17 23:00 INR 1.10 (0.83-1.16) 08/08/17 23:00 - Physical Exam Constitutional: no apparent distress, appears nourished Eyes: PERRL, anicteric sclera Ears, Nose, Mouth, Throat: moist mucous membranes, hearing normal Cardiovascular: regular rate and rhythym, no murmur, rub, or gallop Respiratory: other (upper airway sounds, lungs clear) Gastrointestinal: normoactive bowel sounds, soft, non-tender abdomen Genitourinary: no bladder fullness, No amaya in urethra Skin: warm, normal color Musculoskeletal: full muscle strength ICD10 Worksheet Patient Problems: Problems Problem Status Onset Pneumonia Acute
--- NOTE | 2017-08-12 16:56 | SOAPPROG ---
SOAP Progress Note Assessment/Plan: Assessment: 72 y/o male with history of lymphoma and now with head and neck CA. S/p g-tube placement Now s/p tracheostomy placement S: Nonverbal for the most part, but did mouth "tired" to me. O: sleepy during visit RRR No WOB Abdomen soft, nontender. G-tube with dressing cdi. Tube feeding during visit Plan: Pt doing well from a surgical standpoint. Tolerating tube feedings well. Will continue to follow. 08/09/17 10:02 08/12/17 16:55 Pt stable. G-tube and trach sites are clean. Tolerating tube feeds. Abdomen soft and nontender. Will continue to follow. Objective: Vital Signs Temp Pulse Resp BP Pulse Ox 36.8 C 59 L 16 105/63 93 08/12/17 15:50 08/12/17 15:50 08/12/17 15:50 08/12/17 15:50 08/12/17 15:50 Microbiology 08/08/17 23:00 - Final Sputum, Expectorated Sputum Culture - Final Klebsiella Oxytoca/Raoutella Laboratory Results 08/10/17 04:44 08/10/17 04:44 08/11/17 08/12/17 08/13/17 05:59 05:59 05:59 Intake Total 1966 1935 300 Output Total 500 525 250 Balance 1466 1410 50 PT 14.4 SEC (12.0-15.0) 08/08/17 23:00 INR 1.10 (0.83-1.16) 08/08/17 23:00 ICD10 Worksheet Patient Problems: Problems Problem Status Onset Pneumonia Acute
[2017-08-12] MEDS ORDERED: ALPRAZolam 1 MG TAB TUBE PRN (21:00)
[2017-08-13] MEDS: oxyCODONE IR 5 MG TAB TUBE SCH ×5 (01:08→23:00)
--- NOTE | 2017-08-13 09:06 | SOAPPROG ---
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 No bleeding. Primary therapy is single agent radiation. Discussed case with RT, plan is simulation today and start rt on wednesday * Fever/PNA/tracheitis- growing klebsiella, on ceftriaxone * aspiration severe, npo, continue tube feedings * pain trach site, on scheduled oxycodone every 6 hours, discussed with pharmacy * social, lives by himself will need sig care, possibly snf Subjective: Tired able to speak, c/o pain with any manipulation trach site, wants to shower , coughing 08/09/17 12:29 08/09/17 12:33 08/10/17 12:28 08/11/17 12:26 08/12/17 10:06 08/13/17 09:04 Objective: Vital Signs Temp Pulse Resp BP Pulse Ox 97.2 F 56 L 19 131/64 H 94 08/13/17 09:01 08/13/17 09:01 08/13/17 09:01 08/13/17 09:01 08/13/17 09:01 Laboratory Results 08/10/17 04:44 08/10/17 04:44 08/12/17 08/13/17 08/14/17 05:59 05:59 05:59 Intake Total 6153 231 9886 Output Total 525 1900 220 Balance 1410 -1600 1215 PT 14.4 SEC (12.0-15.0) 08/08/17 23:00 INR 1.10 (0.83-1.16) 08/08/17 23:00 Physical Exam - Physical Exam General Appearance: alert, mild distress EENT: other (trach) Respiratory: rhonchi Cardiac/Chest: regular rate, rhythm Abdomen: other (g tube) ICD10 Worksheet Patient Problems: Problems Problem Status Onset Pneumonia Acute
[2017-08-13] MEDS: ENOXAPARIN 40 MG/0.4 ML SYR SC SCH (09:22)
[2017-08-13] MEDS: ESCITALOPRAM OXALATE 10 MG TAB TUBE SCH (09:22)
[2017-08-13] MEDS: SENNOSIDES 17.6 MG/10 ML UDL TUBE SCH ×2 (09:32→18:58)
--- NOTE | 2017-08-13 10:38 | HOSPPROG ---
Hospitalist Progress Note Assessment/Plan: # fever d/t pna or tracheitis - john grimes today # aspiration - NPO, trying ice chips today # SCC - XRT to start Wednesday - s/p PEG and trach # AHRF - multifocal # FEN - cont TF; check labs tomorrow # dvt ppx - lovenox Subjective: s/p radiation simulation today Objective: Vital Signs Temp Pulse Resp BP Pulse Ox 36.2 C 56 L 19 131/64 H 94 08/13/17 09:01 08/13/17 09:01 08/13/17 09:01 08/13/17 09:01 08/13/17 09:01 Laboratory Results 08/10/17 04:44 08/10/17 04:44 08/12/17 08/13/17 08/14/17 05:59 05:59 05:59 Intake Total 0982 810 0223 Output Total 525 1900 220 Balance 1410 -1600 1215 PT 14.4 SEC (12.0-15.0) 08/08/17 23:00 INR 1.10 (0.83-1.16) 08/08/17 23:00 chart reviewed CXR personally reviewed swallow study reviewed - Physical Exam Constitutional: not in pain Ears, Nose, Mouth, Throat: other (trach) Cardiovascular: regular rate and rhythym, no murmur, rub, or gallop Respiratory: no respiratory distress, no rales or rhonchi, clear to auscultation Gastrointestinal: soft, non-tender abdomen, no palpable masses, other (G tube) ICD10 Worksheet Patient Problems: Problems Problem Status Onset Pneumonia Acute
--- NOTE | 2017-08-13 11:54 | WOCRNPDOC ---
WOCRN Advanced Assessment Note - Skin Integrity Problem, Advanced Assess Coccyx Pressure Injury Dressing Type: Allevyn Life Dressing Description: Intact Exudate Amount: None Integumentary Issue Intervention: Visualized Under Dressing Marva Wound Tissue: Blanching, Erythema Marva Wound Swelling: None Wound Bed Color: Red Wound Bed Constitution: Red/Boyle - Non Granular Tissue Site Odor: None Site Measurement - Head-to-Toe Length X Width X Depth (cm): 0.6cm x 1.2cmx0.1cm Pressure Injury Stage: Stage 2 Pressure Injury Present on Admit: No (hospitalist notified) Skin Integrity Problem Comment: Area of partial-thickness tissue loss to the R of patient's coccyx, appearance consistent w/ stage 2 pressure injury, w/ non- granulating tissue throughout. Wound margins are thin, friable. No periwound swelling, and blanching erythema noted throughout sacrum. Nursing initiated some pressure-relieving interventions; orders also written for dressing to site , Accu-max pump for bed, turns q2, and repositioning in chair q1. Wound care will continue to follow.
--- NOTE | 2017-08-13 18:37 | ASMTCMCOM ---
CM Note CM Note Notes: Pt tx from ICU. Pt will start radiation teratments on Wednesday. It is unknown if and when he will start chemo. No LTAC will take pt with chemo or need to transport to radiation. SNFs are more likely to accomodate pt but not until his traech has been in at least 3 weeks. Pt lives alone so [place] need a facility at [place]. CM to follow. Date Signed: 08/13/2017 06:36 PM Electronically Signed By:Taylor Henry LCSW
[2017-08-13] MEDS ORDERED: ALPRAZolam 1 MG TAB TUBE ONE (22:42)
[2017-08-13] MEDS: ALPRAZolam 1 MG TAB TUBE PRN (22:59)
[2017-08-14 05:02] LABS: PLATELET COUNT 298 10^3/uL (150-400)
[2017-08-14] MEDS: oxyCODONE IR 5 MG TAB TUBE SCH ×4 (05:36→23:04)
[2017-08-14] MEDS: ENOXAPARIN 40 MG/0.4 ML SYR SC SCH (08:44)
[2017-08-14] MEDS: ESCITALOPRAM OXALATE 10 MG TAB TUBE SCH (08:44)
[2017-08-14] MEDS: SENNOSIDES 17.6 MG/10 ML UDL TUBE SCH ×2 (08:54→19:35)
--- NOTE | 2017-08-14 09:29 | SOAPPROG ---
SOAP Progress Note Assessment/Plan: Assessment/Plan: 72 yo gentleman w H&N cancer 1. 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 Fever/PNA/tracheitis - growing Klebsiella, s/p ceftriaxone 3. aspiration - severe, NPO, cont tube feedings 4. Pain - scheduled narcotics 5. Social- possible SNF 08/14/17 09:28 Subjective: No acute events anxiety over failing swallowing test Objective: Vital Signs Temp Pulse Resp BP Pulse Ox 36.6 C 52 L 16 116/68 97 08/14/17 08:54 08/14/17 08:54 08/14/17 08:54 08/14/17 08:54 08/14/17 08:54 Laboratory Results 08/14/17 04:14 08/14/17 04:14 08/13/17 08/14/17 08/15/17 05:59 05:59 05:59 Intake Total 300 3358 Output Total 1900 1970 Balance -1600 1388 PT 14.4 SEC (12.0-15.0) 08/08/17 23:00 INR 1.10 (0.83-1.16) 08/08/17 23:00 Gen - NAD HEENT - trach CV - RRR Chest - clear anteriorly Abd - soft, NT/ND, BS+, G tube intact Ext - no sig edema ICD10 Worksheet Patient Problems: Problems Problem Status Onset Pneumonia Acute
--- NOTE | 2017-08-14 10:15 | HOSPPROG ---
Hospitalist Progress Note Assessment/Plan: # fever d/t pna or tracheitis - s/p rocephin x 5 days # aspiration - NPO, trying ice chips today # SCC - XRT to start Wednesday - s/p PEG and trach # AHRF - multifocal, improved now on RA # FEN - cont TF; check labs tomorrow # debility - PT # pressury injury - wound care # dvt ppx - lovenox Subjective: no acute events; feels better after shaving Objective: Vital Signs Temp Pulse Resp BP Pulse Ox 36.6 C 52 L 16 116/68 97 08/14/17 08:54 08/14/17 08:54 08/14/17 08:54 08/14/17 08:54 08/14/17 08:54 Laboratory Results 08/14/17 04:14 08/14/17 04:14 08/13/17 08/14/17 08/15/17 05:59 05:59 05:59 Intake Total 300 3358 Output Total 1900 1970 Balance -1600 1388 PT 14.4 SEC (12.0-15.0) 08/08/17 23:00 INR 1.10 (0.83-1.16) 08/08/17 23:00 - Physical Exam Constitutional: uncomfortable Ears, Nose, Mouth, Throat: other (trach) Cardiovascular: regular rate and rhythym, no murmur, rub, or gallop Respiratory: no respiratory distress, no rales or rhonchi, clear to auscultation Gastrointestinal: soft, non-tender abdomen, no palpable masses, other (PEG), No guarding, No rebound, No distension ICD10 Worksheet Patient Problems: Problems Problem Status Onset Pneumonia Acute
[2017-08-14] MEDS: ALPRAZolam 1 MG TAB TUBE PRN (23:04)
[2017-08-15] MEDS: oxyCODONE IR 5 MG TAB TUBE SCH ×3 (05:44→17:03)
--- NOTE | 2017-08-15 09:14 | HOSPPROG ---
Hospitalist Progress Note Assessment/Plan: # fever d/t pna or tracheitis - s/p rocephin x 5 days # aspiration - NPO, ice chips and popsicle today # SCC, HPV+ - XRT to start Wednesday - s/p PEG and trach # depression - situational; he denies SI currently # AHRF - multifocal, improved now on RA # FEN - cont TF # debility - PT # pressure injury - wound care # dvt ppx - lovenox Subjective: we had a long discussion regarding his prognosis, his depression regarding his cancer; his RN September was present Objective: Vital Signs Temp Pulse Resp BP Pulse Ox 36.6 C 56 L 17 105/58 L 97 08/15/17 07:43 08/15/17 07:43 08/15/17 07:43 08/15/17 07:43 08/15/17 07:43 Microbiology 08/09/17 18:30 Blood Culture - Final Blood 08/09/17 18:30 Blood Culture - Final Blood Laboratory Results 08/15/17 05:20 08/15/17 05:20 08/14/17 08/15/17 08/16/17 05:59 05:59 05:59 Intake Total 3358 2127 Output Total 1970 1875 200 Balance 1388 252 -200 PT 14.4 SEC (12.0-15.0) 08/08/17 23:00 INR 1.10 (0.83-1.16) 08/08/17 23:00 - Time Spent With Patient Time Spent with Patient: greater than 35 minutes Time Spent with Patient: Greater than 35 minutes spent on this patients care, greater than 50% of time spent counseling, educating, and coordinating care regarding the above mentioned plan. - Physical Exam Constitutional: chronically ill appearing Ears, Nose, Mouth, Throat: other (trach) Respiratory: no respiratory distress, no rales or rhonchi, other (mild upper airway breath sounds), No expiratory wheeze, No inspiratory crackles ICD10 Worksheet Patient Problems: Problems Problem Status Onset Pneumonia Acute
[2017-08-15] MEDS: SENNOSIDES 17.6 MG/10 ML UDL TUBE SCH ×2 (09:33→21:06)
[2017-08-15] MEDS: ESCITALOPRAM OXALATE 10 MG TAB TUBE SCH (09:33)
[2017-08-15] MEDS: ENOXAPARIN 40 MG/0.4 ML SYR SC SCH (09:41)
[2017-08-15] MEDS: ALPRAZolam 1 MG TAB TUBE PRN (21:11)
[2017-08-16] MEDS: oxyCODONE IR 5 MG TAB TUBE SCH ×5 (00:19→23:45)
[2017-08-16] MEDS: ESCITALOPRAM OXALATE 10 MG TAB TUBE SCH (08:21)
[2017-08-16] MEDS: ENOXAPARIN 40 MG/0.4 ML SYR SC SCH (08:21)
--- NOTE | 2017-08-16 09:33 | HOSPPROG ---
Hospitalist Progress Note Assessment/Plan: # fever d/t pna or tracheitis, no recurrence - s/p rocephin x 5 days # aspiration - NPO, ice chips # SCC, HPV+ - XRT today - s/p PEG and trach # depression - situational; he denies SI currently # AHRF - multifocal, improved now on RA # FEN - cont TF # debility - PT # pressure injury - wound care # dvt ppx - lovenox Subjective: discussed his previous life traveling; seen with wound care and RN Objective: Vital Signs Temp Pulse Resp BP Pulse Ox 36.5 C 48 L 16 114/57 L 95 08/16/17 07:15 08/16/17 07:15 08/16/17 07:15 08/16/17 07:15 08/16/17 07:15 Laboratory Results 08/15/17 05:20 08/15/17 05:20 08/15/17 08/16/17 08/17/17 05:59 05:59 05:59 Intake Total 2127 1949 Output Total 1875 1025 600 Balance 252 924 -600 PT 14.4 SEC (12.0-15.0) 08/08/17 23:00 INR 1.10 (0.83-1.16) 08/08/17 23:00 - Time Spent With Patient Time Spent with Patient: greater than 25 minutes Time Spent with Patient: Greater than 25 minutes spent on this patients care, greater than 50% of time spent counseling, educating, and coordinating care regarding the above mentioned plan. - Physical Exam Constitutional: no apparent distress, appears nourished Ears, Nose, Mouth, Throat: other (trach) Gastrointestinal: other (PEG) ICD10 Worksheet Patient Problems: Problems Problem Status Onset Pneumonia Acute
--- NOTE | 2017-08-16 10:28 | WOCRNPDOC ---
WOCRN Advanced Assessment Note - Skin Integrity Problem, Advanced Assess Coccyx Pressure Injury Dressing Type: Allevyn Life ( over wound), Mepilex Border (sacral dressing over sacrum. ) Dressing Description: Clean/Dry, Intact Exudate Amount: Scant Exudate Characteristic(s): Serosanguinous Integumentary Issue Intervention: Dressing Changed Marva Wound Tissue: Blanching, Erythema Wound Bed Constitution: Smooth Tissue Site Measurement - Head-to-Toe Length X Width X Depth (cm): 1.3x1.9x0.1 Pressure Injury Stage: Stage 2 Pressure Injury Present on Admit: No Skin Integrity Problem Comment: Partial thickness wound that measures larger than previous assessment on Wednesday. It also has a small dark area in the middle of the wound bed that may be an evolving DTI. Wound care will round again wednesday to check progress. Continue to offload. Instructed that instead of just repositioning in chair patient should stand and walk for 3-4 min every hour to help reperfuse area. Annmarie HDEZ in room for care. Medial Neck Tracheostomy Site Dressing Type: Dressing Sponge, Polymem Dressing Description: Intact Exudate Amount: Moderate Exudate Color: Yellow Exudate Characteristic(s): Mucous, Stringy Integumentary Issue Intervention: Dressing Changed Marva Wound Tissue: Blanching, Erythema Wound Bed Constitution: Mixed Loose & Adhered Slough/Eschar Site Measurement - Head-to-Toe Length X Width X Depth (cm): 0.2x0.3xscab/eschar Skin Integrity Problem Comment: Dressing changed after cleaning area with water and gauze. Reapplied polymem then drain sponge. Area is healing. No need for wound care to follow. Please reconsult prn.
[2017-08-16] MEDS: SENNOSIDES 17.6 MG/10 ML UDL TUBE SCH ×2 (11:22→20:21)
--- NOTE | 2017-08-16 12:47 | SOAPPROG ---
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 O: VS reviewed Gen: Thin man in NAD Neck: trach Lungs: breathing comfortably No labs Objective: Vital Signs Temp Pulse Resp BP Pulse Ox 36.5 C 48 L 16 114/57 L 95 08/16/17 07:15 08/16/17 07:15 08/16/17 07:15 08/16/17 07:15 08/16/17 07:15 Laboratory Results 08/15/17 05:20 08/15/17 05:20 08/15/17 08/16/17 08/17/17 05:59 05:59 05:59 Intake Total 7611 6769 Output Total 2085 1025 600 Balance 252 924 -600 PT 14.4 SEC (12.0-15.0) 08/08/17 23:00 INR 1.10 (0.83-1.16) 08/08/17 23:00 ICD10 Worksheet Patient Problems: Problems Problem Status Onset Pneumonia Acute
--- NOTE | 2017-08-16 16:12 | ASMTCMCOM ---
CM Note CM Note Notes: Chart reviewed. No significant change in plan. Still in probable need of SNF. Has some situational depression. Will ask spiritual services to see. CM to follow. Plan: TBD Date Signed: 08/16/2017 04:12 PM Electronically Signed By:Emmie Silvestre RN
[2017-08-16] MEDS ORDERED: LIDOCAINE 2% JELLY 5 ML TUBE TP ONE (21:15)
[2017-08-16] MEDS ORDERED: LIDOCAINE 2% JELLY 20 ML (UROJECT) ONE (21:19)
[2017-08-16] MEDS: ALPRAZolam 1 MG TAB TUBE PRN (21:37)
[2017-08-17] MEDS: oxyCODONE IR 5 MG TAB TUBE SCH ×4 (05:48→23:15)
[2017-08-17] MEDS: ENOXAPARIN 40 MG/0.4 ML SYR SC SCH (09:00)
[2017-08-17] MEDS: SENNOSIDES 17.6 MG/10 ML UDL TUBE SCH ×2 (09:01→21:20)
[2017-08-17] MEDS: ESCITALOPRAM OXALATE 10 MG TAB TUBE SCH (09:01)
--- NOTE | 2017-08-17 09:25 | HOSPPROG ---
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 # AHRF - multifocal, improved now on RA # FEN - cont TF # debility - PT # pressure injury - wound care # dvt ppx - lovenox Subjective: long discussion regarding his mental/emotional status; not actively suicidal but has considered this Objective: Vital Signs Temp Pulse Resp BP Pulse Ox 36.9 C 54 L 16 98/52 L 94 08/17/17 07:28 08/17/17 07:28 08/17/17 07:28 08/17/17 07:28 08/17/17 07:28 Laboratory Results 08/15/17 05:20 08/15/17 05:20 08/16/17 08/17/17 08/18/17 05:59 05:59 05:59 Intake Total 1949 1525 Output Total 1025 1425 225 Balance 924 100 -225 PT 14.4 SEC (12.0-15.0) 08/08/17 23:00 INR 1.10 (0.83-1.16) 08/08/17 23:00 - Time Spent With Patient Time Spent with Patient: greater than 25 minutes Time Spent with Patient: Greater than 25 minutes spent on this patients care, greater than 50% of time spent counseling, educating, and coordinating care regarding the above mentioned plan. - Physical Exam Constitutional: no apparent distress, appears nourished Ears, Nose, Mouth, Throat: other (trach) Gastrointestinal: other (peg) ICD10 Worksheet Patient Problems: Problems Problem Status Onset Pneumonia Acute
--- NOTE | 2017-08-17 14:06 | ASMTCMCOM ---
CM Note CM Note Notes: This patient presents a difficult discharge planning scenario. Therapies and other providers have recommended SNF d/t patient's inability to care for himself at home (s/p new trach 08/05 and PEG 08/03) and need for 6 weeks of radiation. Most SNF's do not take patient's with trachs less than one month old. He does not qualify for LTAC d/t need for ongoing radiation. I spoke with car deliverer Cande Pantoja who says that patient also suffers from fairly debilitating depression and anxiety. We ordered a psychiatry consult today for possible medical management. Patient is not able to identify a support system for himself, either. I sent referrals to local SNFs to gauge their interest; as suspected, patient's trach is an impediment. I have shared this case with CM Dining Room Coordinator Sana Szymanski, and we will work with the entire care team to help with discharge planning. Date Signed: 08/17/2017 02:06 PM Electronically Signed By:Cristal France RN
--- NOTE | 2017-08-17 19:23 | SOAPPROG ---
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 - had airway obx now s/p trach and G tube - primary therapy will be single agent XRT * Fever/PNA/tracheitis - growing Klebsiella, s/p ceftriaxone * Aspiration - severe, NPO, cont tube feedings * Pain - scheduled narcotics * Dispo - possible SNF Plan: 08/17/17 19:22 Subjective: tired Objective: Vital Signs Temp Pulse Resp BP Pulse Ox 36.9 C 52 L 16 116/68 93 08/17/17 16:00 08/17/17 16:00 08/17/17 16:00 08/17/17 16:00 08/17/17 16:00 Laboratory Results 08/15/17 05:20 08/15/17 05:20 08/16/17 08/17/17 08/18/17 05:59 05:59 05:59 Intake Total 1949 1525 1426 Output Total 1025 1425 350 Balance 791 018 0378 PT 14.4 SEC (12.0-15.0) 08/08/17 23:00 INR 1.10 (0.83-1.16) 08/08/17 23:00 Physical Exam - Physical Exam General Appearance: no apparent distress Neck: other (trach) Respiratory: lungs clear ICD10 Worksheet Patient Problems: Problems Problem Status Onset Pneumonia Acute
[2017-08-17] MEDS: ALPRAZolam 1 MG TAB TUBE PRN (23:15)
[2017-08-18] MEDS: oxyCODONE IR 5 MG TAB TUBE SCH ×4 (06:00→23:33)
[2017-08-18] MEDS: ESCITALOPRAM OXALATE 10 MG TAB TUBE SCH (08:45)
[2017-08-18] MEDS: ENOXAPARIN 40 MG/0.4 ML SYR SC SCH (08:45)
[2017-08-18] MEDS: SENNOSIDES 17.6 MG/10 ML UDL TUBE SCH ×2 (08:45→20:33)
[2017-08-18] MEDS: ALPRAZolam 1 MG TAB TUBE PRN ×2 (12:06→23:34)
--- NOTE | 2017-08-18 15:44 | HOSPPROG ---
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 Strength appears to be improving. will d/w CM Subjective: talking to psychiatry about his depression. no cp or sob. nursing is reporting a trach malfunction Objective: Vital Signs Temp Pulse Resp BP Pulse Ox 36.5 C 56 L 16 105/57 L 97 08/18/17 08:21 08/18/17 08:21 08/18/17 08:21 08/18/17 08:21 08/18/17 08:21 Laboratory Results 08/15/17 05:20 08/15/17 05:20 08/17/17 08/18/17 08/19/17 05:59 05:59 05:59 Intake Total 1525 2530 50 Output Total 1425 825 150 Balance 100 1705 -100 PT 14.4 SEC (12.0-15.0) 08/08/17 23:00 INR 1.10 (0.83-1.16) 08/08/17 23:00 - Physical Exam Constitutional: no apparent distress, not in pain Eyes: PERRL, EOMI Ears, Nose, Mouth, Throat: moist mucous membranes, No dry mucous membranes Cardiovascular: No edema Respiratory: no respiratory distress Gastrointestinal: normoactive bowel sounds Skin: warm Neurologic: AAOx3 Psychiatric: interacting appropriately, not anxious, not encephalopathic Lymph, Heme, Immunologic: No petechiae ICD10 Worksheet Patient Problems: Problems Problem Status Onset Pneumonia Acute
--- NOTE | 2017-08-18 16:13 | SOAPPROG ---
SOAP Progress Note Assessment/Plan: Pt with trach. The RT was concerned because trach appears partiallky out of neck. He is breathing comfortable. neck- trach in place. He has very long neck and straps are riding up on neck. His trach is still patent. Plan: pt with trach. I discussed the trach placement with Dr. Red. Currently it is not resulting in any difficulty. Unless there is a strap that would hold it down our inclination is to leave it as is unless there are any difficulties. any type of strap will continue to ride up on his neck. 08/06/17 08:24 08/18/17 16:10 Objective: Vital Signs Temp Pulse Resp BP Pulse Ox 36.4 C 53 L 16 94/58 L 98 08/18/17 16:00 08/18/17 16:00 08/18/17 16:00 08/18/17 16:00 08/18/17 16:00 Laboratory Results 08/15/17 05:20 08/15/17 05:20 08/17/17 08/18/17 08/19/17 05:59 05:59 05:59 Intake Total 1525 2530 50 Output Total 1425 825 150 Balance 100 1705 -100 PT 14.4 SEC (12.0-15.0) 08/08/17 23:00 INR 1.10 (0.83-1.16) 08/08/17 23:00 ICD10 Worksheet Patient Problems: Problems Problem Status Onset Pneumonia Acute
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
[2017-08-19] MEDS: oxyCODONE IR 5 MG TAB TUBE SCH ×4 (05:01→23:03)
[2017-08-19] MEDS: ENOXAPARIN 40 MG/0.4 ML SYR SC SCH (09:15)
[2017-08-19] MEDS: ESCITALOPRAM OXALATE 10 MG TAB TUBE SCH (09:16)
[2017-08-19] MEDS: SENNOSIDES 17.6 MG/10 ML UDL TUBE SCH ×2 (09:16→21:12)
--- NOTE | 2017-08-19 11:56 | HOSPPROG ---
Hospitalist Progress Note Assessment/Plan: 72 yo pt w H&N cancer # Tracheostomy: -per ENT who examined trach on 08/19, trach is patent and functioning accordingly. 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 I discussed with the team today. He needs a SNF and will likely not have an accepting one until the Trach has matured for 30 days. Subjective: has XRT today. discouraged that he is NPO . Objective: Vital Signs Temp Pulse Resp BP Pulse Ox 36.6 C 51 L 16 136/73 H 98 08/19/17 07:22 08/19/17 11:44 08/19/17 11:44 08/19/17 11:44 08/19/17 11:44 Laboratory Results 08/15/17 05:20 08/15/17 05:20 08/18/17 08/19/17 08/20/17 05:59 05:59 05:59 Intake Total 2530 1403 Output Total 825 1000 220 Balance 1705 403 -220 PT 14.4 SEC (12.0-15.0) 08/08/17 23:00 INR 1.10 (0.83-1.16) 08/08/17 23:00 - Physical Exam Constitutional: no apparent distress Eyes: PERRL, EOMI Ears, Nose, Mouth, Throat: moist mucous membranes, hearing normal Cardiovascular: No edema Respiratory: no respiratory distress, no rales or rhonchi, clear to auscultation Gastrointestinal: normoactive bowel sounds, soft, non-tender abdomen Skin: warm Neurologic: AAOx3 Psychiatric: interacting appropriately Lymph, Heme, Immunologic: No petechiae ICD10 Worksheet Patient Problems: Problems Problem Status Onset Pneumonia Acute
[2017-08-19] MEDS: ALPRAZolam 1 MG TAB TUBE PRN ×2 (12:54→23:03)
[2017-08-20] MEDS: oxyCODONE IR 5 MG TAB TUBE SCH ×4 (07:36→22:34)
[2017-08-20] MEDS: ENOXAPARIN 40 MG/0.4 ML SYR SC SCH (08:41)
[2017-08-20] MEDS: SENNOSIDES 17.6 MG/10 ML UDL TUBE SCH ×2 (08:41→22:17)
[2017-08-20] MEDS: ESCITALOPRAM OXALATE 10 MG TAB TUBE SCH (08:41)
--- NOTE | 2017-08-20 12:03 | WOCRNPDOC ---
WOCRN Advanced Assessment Note - Skin Integrity Problem, Advanced Assess Coccyx Pressure Injury Dressing Type: Mepilex Border (sacral) Dressing Description: Not Intact (not covering wound) Exudate Amount: None Integumentary Issue Intervention: Dressing Applied, Dressing Initialed & Dated, Hydrogel Applied Marva Wound Tissue: Blanching, Erythema Marva Wound Swelling: None Wound Bed Color: Red Wound Bed Constitution: Red/[place] - Non Granular Tissue Wound Edges: Irregular Site Odor: None Site Measurement - Head-to-Toe Length X Width X Depth (cm): 1.2cmx1.8cmx0.1cm Pressure Injury Stage: Stage 2 Pressure Injury Present on Admit: No (hospitalist already aware; notified) Skin Integrity Problem Comment: Assessed today r/t worsening of wound. Measurements unchanged since Friday 08/18. Wound still appears partial- thickness, though there was a thin layer of yellowing exudate in the wound bed today. Periwound skin is intact, blanching throughout. Spoke with patient at length about off-loading the site; he was under the impression the dressing would "fix it." Reiterated that he needs to stay off the wound as much as possible. He reports sitting in the chair with an off-loading cushion for several hours a day. Advised following the existing instructions from wound care , which includes repositioning in the chair hourly, w/ an off-loading cushion, and standing every hour to allow tissues to re-perfuse. Added an order for nursing to monitor the dressing Q shift, because previous Mepilex sacral dressing was not covering the wound. Smaller Allevyn was placed today, and order updated. Discussed w/ crankshaft grinder Roxy the need for very consistent repositioning/off-loading of coccyx. Wound RN will re-assess on Tuesday 08/22 to determine if any further interventions are needed.
--- NOTE | 2017-08-20 13:44 | HOSPPROG ---
Hospitalist Progress Note Assessment/Plan: 72 yo pt w H&N cancer # Tracheostomy: -per ENT who examined trach on 08/19, trach is patent and functioning accordingly. 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 I discussed with the team today. He needs a SNF and will likely not have an accepting one until the Trach has matured for 30 days. Doing well otherwise. cont with XRT Subjective: very discouraged about his condition. no cp or sob. no suicidal ideations. Objective: Vital Signs Temp Pulse Resp BP Pulse Ox 36.6 C 59 L 17 100/61 97 08/20/17 07:22 08/20/17 07:22 08/20/17 07:22 08/20/17 07:22 08/20/17 07:22 Laboratory Results 08/15/17 05:20 08/15/17 05:20 08/19/17 08/20/17 08/21/17 05:59 05:59 05:59 Intake Total 1403 1104 Output Total 1000 745 300 Balance 403 359 -300 PT 14.4 SEC (12.0-15.0) 08/08/17 23:00 INR 1.10 (0.83-1.16) 08/08/17 23:00 - Physical Exam Constitutional: no apparent distress Eyes: PERRL, EOMI Ears, Nose, Mouth, Throat: moist mucous membranes Cardiovascular: regular rate and rhythym, irregularly irregular Respiratory: no respiratory distress Gastrointestinal: normoactive bowel sounds, soft, non-tender abdomen Genitourinary: no bladder fullness Skin: warm Neurologic: AAOx3 Psychiatric: interacting appropriately, not anxious, not encephalopathic Lymph, Heme, Immunologic: No petechiae ICD10 Worksheet Patient Problems: Problems Problem Status Onset Pneumonia Acute
--- NOTE | 2017-08-20 14:57 | SOAPPROG ---
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 * Pain - scheduled narcotics. * Dispo - will need SNF, bu issue with trach and RT. 08/20/17 14:56 Subjective: Doing speech therapy. NAD. No labs. Objective: Vital Signs Temp Pulse Resp BP Pulse Ox 36.6 C 59 L 17 100/61 97 08/20/17 07:22 08/20/17 07:22 08/20/17 07:22 08/20/17 07:22 08/20/17 07:22 Laboratory Results 08/15/17 05:20 08/15/17 05:20 08/19/17 08/20/17 08/21/17 05:59 05:59 05:59 Intake Total 1403 1104 Output Total 1000 745 300 Balance 403 359 -300 PT 14.4 SEC (12.0-15.0) 08/08/17 23:00 INR 1.10 (0.83-1.16) 08/08/17 23:00 ICD10 Worksheet Patient Problems: Problems Problem Status Onset Pneumonia Acute
--- NOTE | 2017-08-20 15:00 | ASMTCMCOM ---
CM Note CM Note Notes: Met with pt today to discuss DC plan. Pt has a new traech (08/05) and needs another ~6 weeks of radiation, [facility] declined to take pt due to his need for radiation > 2 weeks. [facility] [place] declined to take pt until he has had traech for 30 days (09/04). Sent referral to [facility] for 09/04. CM to follow Date Signed: 08/20/2017 02:59 PM Electronically Signed By:Taylor Henry LCSW
[2017-08-20] MEDS: ALPRAZolam 1 MG TAB TUBE PRN (22:17)
[2017-08-21] MEDS: oxyCODONE IR 5 MG TAB TUBE SCH ×4 (04:52→23:17)
[2017-08-21] MEDS: ENOXAPARIN 40 MG/0.4 ML SYR SC SCH (09:00)
[2017-08-21] MEDS: SENNOSIDES 17.6 MG/10 ML UDL TUBE SCH ×2 (09:00→22:48)
[2017-08-21] MEDS: ESCITALOPRAM OXALATE 10 MG TAB TUBE SCH (09:02)
--- NOTE | 2017-08-21 10:10 | SOAPPROG ---
SOAP Progress Note Assessment/Plan: Assessment: 1. Base of tongue cancer,T2N0, HPV+ 2. s/p trach 3. s/p G tube 4. untreated hepatitis C Plan: - continue current supportive care. - can convert patient to intermittent bolus tube feeds (pt request so he does not have to call to be disconnected to get OOB) - RT to continue for another several weeks (5 fractions completed thus far) - d/c to SNF when available - will treat HCV at some point with antivirals discussed pathophysiology of HPV+ cancer with patient. I explained that chronic infection with HPV likely occurred decades ago. Prognosis for HPV+ head and neck cancer generally better than HPV-. 25 min spent w/ pt and in coordination of care. 08/21/17 10:08 Subjective: no pain. Objective: exam: thin, NAD trach w/ speaking valve lungs CTAB CV RRR no MGR Abd: +BS NT ND. G tube site looks good Ext: no edema Vital Signs Temp Pulse Resp BP Pulse Ox 36.7 C 53 L 16 105/58 L 96 08/21/17 08:00 08/21/17 08:00 08/21/17 08:00 08/21/17 08:00 08/21/17 08:00 Laboratory Results 08/15/17 05:20 08/15/17 05:20 08/20/17 08/21/17 08/22/17 05:59 05:59 05:59 Intake Total 1104 Output Total 745 1333 400 Balance 359 -1333 -400 PT 14.4 SEC (12.0-15.0) 08/08/17 23:00 INR 1.10 (0.83-1.16) 08/08/17 23:00 ICD10 Worksheet Patient Problems: Problems Problem Status Onset Pneumonia Acute
--- NOTE | 2017-08-21 11:19 | HOSPPROG ---
Hospitalist Progress Note Assessment/Plan: 72 yo pt w HPV H&N cancer. S/P Tracheostomy and PEG # Tracheostomy: -per ENT who examined trach on 08/19, trach is patent and functioning accordingly. 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 He is requesting bolus feeding. # depression - situational; he denies SI currently -appreciate Psych's consult -cont Lexapro 10mg -Xanex PRN # HCV+ - consider outpatient treatment # AHRF - multifocal, improved now on RA # FEN - cont TF # debility - PT # Depression: on Lexapro #SPCMN with a BMI of 19.1 # pressure injury - wound care # dvt ppx - lovenox Dispo: pending placement. I discussed with the team today. He needs a SNF and will likely not have an accepting one until the Trach has matured for 30 days. Doing well otherwise. cont with XRT Subjective: no o/n events. no new complaints. no cp or sob. no n/v. tolerating tube feeds. requesting bolus feeding. Objective: Vital Signs Temp Pulse Resp BP Pulse Ox 36.7 C 53 L 16 105/58 L 96 08/21/17 08:00 08/21/17 08:00 08/21/17 08:00 08/21/17 08:00 08/21/17 08:00 Laboratory Results 08/15/17 05:20 08/15/17 05:20 08/20/17 08/21/17 08/22/17 05:59 05:59 05:59 Intake Total 1104 Output Total 745 1333 400 Balance 359 -1333 -400 PT 14.4 SEC (12.0-15.0) 08/08/17 23:00 INR 1.10 (0.83-1.16) 08/08/17 23:00 - Physical Exam Constitutional: no apparent distress Eyes: PERRL, EOMI Ears, Nose, Mouth, Throat: moist mucous membranes, hearing normal Cardiovascular: regular rate and rhythym, No edema Respiratory: no respiratory distress, no rales or rhonchi, clear to auscultation Gastrointestinal: normoactive bowel sounds, soft, non-tender abdomen Genitourinary: no bladder fullness Skin: warm Neurologic: AAOx3 Psychiatric: interacting appropriately, not anxious, not encephalopathic Lymph, Heme, Immunologic: No petechiae ICD10 Worksheet Patient Problems: Problems Problem Status Onset Pneumonia Acute
[2017-08-21] MEDS: ALPRAZolam 1 MG TAB TUBE PRN (22:00)
[2017-08-22] MEDS: oxyCODONE IR 5 MG TAB TUBE SCH ×3 (06:01→19:28)
--- NOTE | 2017-08-22 06:17 | GCON ---
[f rep st] CONSULTATION ENT CONSULTATION DATE OF CONSULTATION: 08/21/2017 REQUESTING PHYSICIAN: Dr. Portillo. REASON FOR CONSULTATION: Possible dislodgement of tracheotomy tube. HISTORY: The patient is a 72-year-old male with a base of tongue squamous cell carcinoma for which t here was concern of airway compromise. He had a tracheostomy tube placed approximately 3 weeks ago, and is presently in the hospital receiving tube feedings for nutrition and has started his radiation therapy treatments for his squamous cell carcinoma. On examination today, the patient is sitting up in bed and talking clearly. The trach tube is dislod ged anteriorly. He denies any shortness of breath. Speaking in full clear sentences with no stridor . The trach tube was then removed. I used the obturator white sugar syrup operator and coated the tracheotomy tube with 4% lidocaine gel. I then set that aside and took the fiberoptic laryngoscope and examined the trache ostomy tract and the opening into the trachea itself. The trachea appeared normal. There was no sig ns of any stenosis or significant granulation tissue. The laryngoscope was then removed. By using a headlight and positioning the patient with his neck sl ightly extended, I was able to slide the tracheostomy tube back into position. The obturator was rem hima. The collar was then replaced and tightened as it was very loose at the time I initially came i nto the room. This looseness of the collar likely contributed to the dislodgement of the tube itself . The scope was then passed through the tracheostomy tube. It was found to be centered nicely within t he trachea mainstem. The mainstem bronchi and the pierre appeared normal with no evidence of any tra nannette. I then capped the tracheostomy tube. I took a 10 mL syringe and tried to pull out any last bits of a ir that might have been in the balloon. The balloon had been deflated, but my hope was that I could pull the balloon a little tighter to the shaft of the trach tube and that might contribute to decreas ing the patient's coughing. IMPRESSION: A dislodged tracheostomy tube. PLAN: I tightened the collar around the patient's neck; hopefully this will decrease the likelihood of repeated dislodgement. If the patient continues to have coughing, the respiratory therapist might consider a treatment with nebulized lidocaine to help settle down the patient's airway. If this persists, then treatment with a narcotic such as Lortab can be beneficial in decreasing the cough reflex. Thank you for this consultation. /[id number]/MODL
[2017-08-22] MEDS: ESCITALOPRAM OXALATE 10 MG TAB TUBE SCH (09:02)
[2017-08-22] MEDS: SENNOSIDES 17.6 MG/10 ML UDL TUBE SCH ×2 (09:02→21:11)
[2017-08-22] MEDS: ENOXAPARIN 40 MG/0.4 ML SYR SC SCH (09:03)
--- NOTE | 2017-08-22 12:27 | HOSPPROG ---
Hospitalist Progress Note Assessment/Plan: 72 yo pt w HPV H&N cancer. S/P Tracheostomy and PEG # Tracheostomy with dislodgement. 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 He is requesting bolus feeding. # depression - situational; he denies SI currently -cont Lexapro 10mg -Xanex PRN # HCV+ - consider outpatient treatment # AHRF - multifocal, improved now on RA # FEN - cont TF # debility - PT # Depression: on Lexapro #SPCMN with a BMI of 19.1 # pressure injury - wound care # dvt ppx - lovenox Dispo: pending placement. I discussed with the team today. He needs a SNF and will likely not have an accepting one until the Trach has matured for 30 days. Doing well otherwise. cont with XRT. cont with trach care. Subjective: no cp or sob. dislodged trach was reinserted yesterday. Objective: Vital Signs Temp Pulse Resp BP Pulse Ox 36.5 C 49 L 18 98/54 L 95 08/22/17 08:25 08/22/17 08:45 08/22/17 08:45 08/22/17 08:25 08/22/17 08:45 Laboratory Results 08/15/17 05:20 08/15/17 05:20 08/21/17 08/22/17 08/23/17 05:59 05:59 05:59 Intake Total 1246 Output Total 1333 600 Balance -1333 646 PT 14.4 SEC (12.0-15.0) 08/08/17 23:00 INR 1.10 (0.83-1.16) 08/08/17 23:00 - Physical Exam Constitutional: no apparent distress Eyes: PERRL, EOMI Ears, Nose, Mouth, Throat: moist mucous membranes, hearing normal Cardiovascular: regular rate and rhythym Respiratory: no respiratory distress, no rales or rhonchi Gastrointestinal: normoactive bowel sounds, soft, non-tender abdomen Skin: warm Neurologic: AAOx3 Psychiatric: interacting appropriately, not anxious, not encephalopathic Lymph, Heme, Immunologic: No petechiae ICD10 Worksheet Patient Problems: Problems Problem Status Onset Pneumonia Acute
--- NOTE | 2017-08-22 13:12 | WOCRNPDOC ---
WOCRN Advanced Assessment Note - Skin Integrity Problem, Advanced Assess Coccyx Pressure Injury Dressing Type: Allevyn Life Dressing Description: Intact Exudate Amount: None Integumentary Issue Intervention: Dressing Changed, Hydrogel Applied Marva Wound Tissue: Blanching, Erythema Marva Wound Swelling: None Wound Bed Color: Red Wound Bed Constitution: Red/[place] - Non Granular Tissue Wound Edges: Epithelizing Site Measurement - Head-to-Toe Length X Width X Depth (cm): 0.6cmx1.2cmx0.1cm Pressure Injury Stage: Stage 2 Pressure Injury Present on Admit: No (hospitalist already aware) Skin Integrity Problem Comment: Wound dimensions slightly smaller than previous assessment, w/ epithelialization noted along wound edges. Will continue w/ plan of care, including pressure-relieving interventions. Reiterated to both patient and drafter refrigerationKETTY Anguiano the importance of him repositioning himself frequently, standing up every hour to relieve pressure over this area. Will re-assess later this week.
[2017-08-22] MEDS: ALPRAZolam 1 MG TAB TUBE PRN (14:45)
[2017-08-22] MEDS: ALPRAZolam 1 MG TAB TUBE SCH (21:11)
[2017-08-23] MEDS: oxyCODONE IR 5 MG TAB TUBE SCH ×4 (00:40→20:07)
[2017-08-23 04:17] LABS: PLATELET COUNT 312 10^3/uL (150-400)
[2017-08-23] MEDS: ESCITALOPRAM OXALATE 10 MG TAB TUBE SCH (09:16)
[2017-08-23] MEDS: ENOXAPARIN 40 MG/0.4 ML SYR SC SCH (09:16)
[2017-08-23] MEDS: SENNOSIDES 17.6 MG/10 ML UDL TUBE SCH ×2 (09:20→20:53)
--- NOTE | 2017-08-23 10:22 | SOAPPROG ---
SOAP Progress Note Assessment/Plan: Assessment/Plan: 72 yo gentleman w H&N cancer 1. 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 Fever/PNA/tracheitis - growing Klebsiella, s/p ceftriaxone 3. aspiration - severe, NPO, cont tube feedings 4. Pain - scheduled narcotics 5. HCV+ - outpt treatment 5. Social-will need SNF Subjective: Pt gone to radiation Objective: Vital Signs Temp Pulse Resp BP Pulse Ox 36.6 C 60 18 99/65 L 99 08/23/17 08:36 08/23/17 08:36 08/23/17 08:36 08/23/17 08:36 08/23/17 08:36 Laboratory Results 08/23/17 04:02 08/23/17 04:02 08/22/17 08/23/17 08/24/17 05:59 05:59 05:59 Intake Total 1246 1020 347 Output Total 600 1000 200 Balance 646 20 147 PT 14.4 SEC (12.0-15.0) 08/08/17 23:00 INR 1.10 (0.83-1.16) 08/08/17 23:00 not examined today ICD10 Worksheet Patient Problems: Problems Problem Status Onset Pneumonia Acute
[2017-08-23] MEDS: ALPRAZolam 1 MG TAB TUBE PRN (14:26)
[2017-08-23] MEDS ORDERED: LORazepam 2 MG/ML INJ IVP ONE (14:27)
--- NOTE | 2017-08-23 15:40 | HOSPPROG ---
Hospitalist Progress Note Assessment/Plan: 72 yo pt w HPV H&N cancer. S/P Tracheostomy and PEG # Tracheostomy with dislodgement. 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 He is requesting bolus feeding. # depression - situational; appears euthymic currently -cont Lexapro 10mg -Xanex PRN # HCV+ - consider outpatient treatment # AHRF - multifocal, improved now on RA # FEN - cont TF # debility - PT # Depression: on Lexapro #SPCMN with a BMI of 19.1 # pressure injury - wound care # dvt ppx - lovenox Dispo: pending placement. May require trach maturing x 30 days prior to dc. Subjective: no significant overnight events, patient reports having issues with tolerating radiation today as he was unable to lie flat with cough Objective: Vital Signs Temp Pulse Resp BP Pulse Ox 36.6 C 60 18 99/65 L 99 08/23/17 08:36 08/23/17 08:36 08/23/17 08:36 08/23/17 08:36 08/23/17 08:36 Laboratory Results 08/23/17 04:02 08/23/17 04:02 08/22/17 08/23/17 08/24/17 05:59 05:59 05:59 Intake Total 1246 1020 547 Output Total 600 1000 200 Balance 646 20 347 PT 14.4 SEC (12.0-15.0) 08/08/17 23:00 INR 1.10 (0.83-1.16) 08/08/17 23:00 awake alert nad anicteric trach in place op clear rrr no mrg soft nt nd no cce warm dry well perfused oriented appropriate ICD10 Worksheet Patient Problems: Problems Problem Status Onset Pneumonia Acute
--- NOTE | 2017-08-23 16:48 | ASMTCMCOM ---
CM Note CM Note Notes: Chart reviewed. Met with patient to discuss d/c planning. He is aware that timeing is a discharge issue r/t his recent trach. He is pleasant and co-operative. He hope to be able to go to SNF rehab in [place]. Has good insight into disease process and healing. CM to follow. Plan: SNF Date Signed: 08/23/2017 04:47 PM Electronically Signed By:Emmie Silvestre RN
[2017-08-23] MEDS: ALPRAZolam 1 MG TAB TUBE SCH (20:53)
[2017-08-24] MEDS: oxyCODONE IR 5 MG TAB TUBE SCH ×6 (00:21→21:00)
[2017-08-24] MEDS: ALPRAZolam 1 MG TAB TUBE PRN (08:58)
[2017-08-24] MEDS: ESCITALOPRAM OXALATE 10 MG TAB TUBE SCH (08:58)
[2017-08-24] MEDS: SENNOSIDES 17.6 MG/10 ML UDL TUBE SCH ×2 (09:04→20:59)
[2017-08-24] MEDS: ENOXAPARIN 40 MG/0.4 ML SYR SC SCH (09:08)
--- NOTE | 2017-08-24 09:21 | SOAPPROG ---
SOAP Progress Note Assessment/Plan: Assessment/Plan: 72 yo gentleman w H&N cancer 1. 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 Fever/PNA/tracheitis - growing Klebsiella, s/p ceftriaxone 3. aspiration - severe, NPO, cont tube feedings 4. Pain - scheduled narcotics 5. HCV+ - outpt treatment 5. Social-will need SNF; difficulty has been placement due to trach will follow intermittently 08/24/17 09:19 Subjective: No acute eventes Doing well w TFs pain controlled Objective: Vital Signs Temp Pulse Resp BP Pulse Ox 37.1 C 57 L 16 101/53 L 97 08/24/17 07:15 08/24/17 07:15 08/24/17 07:15 08/24/17 07:15 08/24/17 07:15 Laboratory Results 08/23/17 04:02 08/23/17 04:02 08/23/17 08/24/17 08/25/17 05:59 05:59 05:59 Intake Total 1020 1753 Output Total 1000 725 200 Balance 20 1028 -200 PT 14.4 SEC (12.0-15.0) 08/08/17 23:00 INR 1.10 (0.83-1.16) 08/08/17 23:00 Gen - NAD HEENT - trach Neuri - up OOB and walking around ICD10 Worksheet Patient Problems: Problems Problem Status Onset Pneumonia Acute
--- NOTE | 2017-08-24 16:08 | HOSPPROG ---
Hospitalist Progress Note Assessment/Plan: 72 yo pt w HPV H&N cancer. S/P Tracheostomy and PEG # Tracheostomy with dislodgement. 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 # depression - situational; appears euthymic currently -cont Lexapro 10mg -Xanax PRN # HCV+ - consider outpatient treatment # AHRF - multifocal, improved now on RA # FEN - cont TF # debility - PT--will need snf # Depression: on Lexapro #SPCMN with a BMI of 19.1 # pressure injury - wound care # dvt ppx - lovenox Dispo: pending placement. May require trach maturing x 30 days prior to dc. Subjective: no significant overnight events, patient notes that he tolerated xrt today better than previously Objective: Vital Signs Temp Pulse Resp BP Pulse Ox 36.6 C 72 17 93/59 L 95 08/24/17 16:05 08/24/17 16:05 08/24/17 16:05 08/24/17 16:05 08/24/17 16:05 Laboratory Results 08/23/17 04:02 08/23/17 04:02 08/23/17 08/24/17 08/25/17 05:59 05:59 05:59 Intake Total 1020 1753 Output Total 1000 725 200 Balance 20 1028 -200 PT 14.4 SEC (12.0-15.0) 08/08/17 23:00 INR 1.10 (0.83-1.16) 08/08/17 23:00 awake alert nad anicteric trach in place op clear rrr no mrg soft nt nd no cce warm dry well perfused oriented appropriate - Time Spent With Patient Time Spent with Patient: greater than 35 minutes Time Spent with Patient: Greater than 35 minutes spent on this patients care, greater than 50% of time spent counseling, educating, and coordinating care regarding the above mentioned plan. ICD10 Worksheet Patient Problems: Problems Problem Status Onset Pneumonia Acute
--- NOTE | 2017-08-24 17:31 | GPN ---
[f rep st] PROCEDURE NOTE DATE OF PROCEDURE: 08/24/2017 PROCEDURE: Flexible fiberoptic bronchoscopy. DATE OF PROCEDURE: 08/14/2014. REASON FOR THE PROCEDURE: Tracheostomy tube repositioning. PROCEDURE IN DETAIL: The risks and benefits of the procedure were explained to the patient, who agre ed to proceed. The entire procedure was performed in the patient's room. It was my assessment that there was no risk of airborne infection from the procedure. The patient's tracheostomy tube had fall en chcf out and was no longer in the trachea. Respiratory Therapy and I both tried to advance it, but were unable to advance it fully into the trachea. I advanced the bronchoscope through the trach eostomy tube and only saw tissue at the end of the tracheostomy tube. I then withdrew the tracheosto my tube, advanced the bronchoscope through the tracheostomy tube, then advanced the bronchoscope into the tracheostomy easily, and was able to identify the pierre. I was then able to advance the trache ostomy tube over the bronchoscope and secured it fully in position with no difficulty. The patient t olerated the procedure well with good saturations throughout, but did have some coughing and mild dis comfort. No specimens were sent. Appropriate position of the tube was confirmed prior to removing t he bronchoscope. /[id number]/MODL
[2017-08-24] MEDS: ALPRAZolam 1 MG TAB TUBE SCH (20:59)
[2017-08-25] MEDS: oxyCODONE IR 5 MG TAB TUBE SCH ×4 (03:03→21:25)
[2017-08-25] MEDS: ESCITALOPRAM OXALATE 10 MG TAB TUBE SCH (08:48)
[2017-08-25] MEDS: ENOXAPARIN 40 MG/0.4 ML SYR SC SCH (08:49)
[2017-08-25] MEDS: ALPRAZolam 1 MG TAB TUBE PRN (08:50)
[2017-08-25] MEDS: SENNOSIDES 17.6 MG/10 ML UDL TUBE SCH ×2 (12:17→21:26)
--- NOTE | 2017-08-25 16:54 | HOSPPROG ---
Hospitalist Progress Note Assessment/Plan: 72 yo pt w HPV H&N cancer. S/P Tracheostomy and PEG # Tracheostomy with dislodgement. 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 CXR today negative for e/o aspiration or pna on personal review # depression - situational; appears euthymic currently -cont Lexapro 10mg -Xanax PRN # HCV+ - consider outpatient treatment # AHRF - multifocal, improved now on RA # FEN - cont TF # debility - PT--will need snf # Depression: on Lexapro #SPCMN with a BMI of 19.1 # pressure injury - wound care # dvt ppx - lovenox Dispo: pending placement. May require trach maturing x 30 days prior to dc. Subjective: no significant overnight events, patient concerned he may have more sputum Objective: Vital Signs Temp Pulse Resp BP Pulse Ox 36.6 C 51 L 18 111/64 100 08/25/17 16:00 08/25/17 16:00 08/25/17 16:00 08/25/17 16:00 08/25/17 16:00 Laboratory Results 08/23/17 04:02 08/23/17 04:02 08/24/17 08/25/17 08/26/17 05:59 05:59 05:59 Intake Total 1753 1086 Output Total 725 1000 Balance 1028 -1000 1086 PT 14.4 SEC (12.0-15.0) 08/08/17 23:00 INR 1.10 (0.83-1.16) 08/08/17 23:00 awake alert nad anicteric trach in place op clear rrr no mrg soft nt nd no cce warm dry well perfused oriented appropriate ICD10 Worksheet Patient Problems: Problems Problem Status Onset Pneumonia Acute
[2017-08-25] MEDS: ALPRAZolam 1 MG TAB TUBE SCH (21:26)
[2017-08-26] MEDS: oxyCODONE IR 5 MG TAB TUBE SCH ×4 (02:49→21:09)
[2017-08-26 05:42] LABS: PLATELET COUNT 215 10^3/uL (150-400)
--- NOTE | 2017-08-26 08:26 | SOAPPROG ---
SOAP Progress Note Assessment/Plan: Assessment/Plan: 72 yo gentleman w H&N cancer 1. 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 Fever/PNA/tracheitis - growing Klebsiella, s/p ceftriaxone 3. aspiration - severe, NPO, cont tube feedings CXR yesterday negative for new infiltrate 4. Pain - scheduled narcotics 5. HCV+ - outpt treatment 6. Thick secretions - guaifenesin trial worry that scopolamine will causes too much in the way of dry mouth as XRT continues 5. Social-will need SNF; difficulty has been placement due to trach will follow intermittently 08/24/17 09:19 08/26/17 08:23 08/26/17 08:25 08/26/17 08:27 Subjective: No acute issues CXR yesterday with no changes Objective: Vital Signs Temp Pulse Resp BP Pulse Ox 37.1 C 67 16 108/59 L 97 08/26/17 07:35 08/26/17 07:35 08/26/17 07:35 08/26/17 07:35 08/26/17 07:35 Laboratory Results 08/26/17 05:09 08/26/17 05:09 08/25/17 08/26/17 08/27/17 05:59 05:59 05:59 Intake Total 2909 282 Output Total 1000 430 Balance -1000 2479 282 PT 14.4 SEC (12.0-15.0) 08/08/17 23:00 INR 1.10 (0.83-1.16) 08/08/17 23:00 Gen - NAD HEENT - trach in place; OP somewhat dry CV - RRR Chest - CTAB Abd - soft Ext - no edema ICD10 Worksheet Patient Problems: Problems Problem Status Onset Pneumonia Acute
[2017-08-26] MEDS: ESCITALOPRAM OXALATE 10 MG TAB TUBE SCH (08:47)
[2017-08-26] MEDS: ALPRAZolam 1 MG TAB TUBE PRN (08:48)
[2017-08-26] MEDS: guaiFENesin 200 MG/10 ML UDL TUBE SCH ×2 (08:48→22:23)
[2017-08-26] MEDS: SENNOSIDES 17.6 MG/10 ML UDL TUBE SCH ×2 (08:48→21:10)
[2017-08-26] MEDS: ENOXAPARIN 40 MG/0.4 ML SYR SC SCH (09:03)
[2017-08-26] MEDS ORDERED: HEPATITIS B VIRUS VACCINE-PF 20 MCG/ML INJ IM ONE (11:30)
[2017-08-26] MEDS ORDERED: PILOCARPINE HCL 5 MG TAB PO PRN (13:26)
--- NOTE | 2017-08-26 13:37 | WOCRNPDOC ---
WOCRN Advanced Assessment Note - Skin Integrity Problem, Advanced Assess Coccyx Pressure Injury Dressing Type: Allevyn Life Dressing Description: Intact Exudate Amount: None Integumentary Issue Intervention: Dressing Changed Marva Wound Tissue: Blanching, Intact Marva Wound Swelling: None Wound Bed Color: Red Wound Bed Constitution: Red/[place] - Non Granular Tissue Site Measurement - Head-to-Toe Length X Width X Depth (cm): 0.3cmx0.5cmx0.1cm Pressure Injury Stage: Stage 2 Pressure Injury Present on Admit: No Skin Integrity Problem Comment: Partial-thickness wound on patient's R coccyx is resolving, wound dimensions smaller than previous assessment. Periwound skin is intact and blanching. Will continue with plan of care, including protective dressing and off-loading interventions. Report given to pet care worker Kelly.
--- NOTE | 2017-08-26 15:39 | HOSPPROG ---
Hospitalist Progress Note Assessment/Plan: 72 yo pt w HPV H&N cancer. S/P Tracheostomy and PEG # Tracheostomy with dislodgement. 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 CXR today negative for e/o aspiration or pna on personal review # depression - situational; appears euthymic currently -cont Lexapro 10mg -Xanax PRN # HCV+ - consider outpatient treatment # AHRF - multifocal, improved now on RA # FEN - cont TF # debility - PT--will need snf # Depression: on Lexapro #SPCMN with a BMI of 19.1 # pressure injury - wound care # dvt ppx - lovenox Dispo: pending placement. May require trach maturing x 30 days prior to dc. Subjective: no significant overnight events Objective: Vital Signs Temp Pulse Resp BP Pulse Ox 37.1 C 67 16 108/59 L 97 08/26/17 07:35 08/26/17 07:35 08/26/17 07:35 08/26/17 07:35 08/26/17 07:35 Laboratory Results 08/26/17 05:09 08/26/17 05:09 08/25/17 08/26/17 08/27/17 05:59 05:59 05:59 Intake Total 2909 282 Output Total 1000 430 Balance -1000 2479 282 PT 14.4 SEC (12.0-15.0) 08/08/17 23:00 INR 1.10 (0.83-1.16) 08/08/17 23:00 awake alert nad trach cdi rrr no mrg cta coarse upper airway bs soft nt nd ICD10 Worksheet Patient Problems: Problems Problem Status Onset Pneumonia Acute
--- NOTE | 2017-08-26 16:42 | ASMTCMCOM ---
CM Note CM Note Notes: Dc plan continues to be for pt to DC to [facility] once his traceh has been in place 30 days (~09/04). Date Signed: 08/26/2017 04:42 PM Electronically Signed By:Taylor Henry LCSW
[2017-08-26] MEDS: ALPRAZolam 1 MG TAB TUBE SCH (21:09)
[2017-08-27] MEDS: oxyCODONE IR 5 MG TAB TUBE SCH ×4 (05:18→20:28)
[2017-08-27] MEDS: ALPRAZolam 1 MG TAB TUBE PRN (08:46)
[2017-08-27] MEDS: guaiFENesin 200 MG/10 ML UDL TUBE SCH ×2 (08:46→20:36)
[2017-08-27] MEDS: ESCITALOPRAM OXALATE 10 MG TAB TUBE SCH (08:46)
[2017-08-27] MEDS: SENNOSIDES 17.6 MG/10 ML UDL TUBE SCH ×2 (08:47→20:28)
[2017-08-27] MEDS: ENOXAPARIN 40 MG/0.4 ML SYR SC SCH (08:49)
--- NOTE | 2017-08-27 18:13 | HOSPPROG ---
Hospitalist Progress Note Assessment/Plan: 72 yo pt w HPV H&N cancer. S/P Tracheostomy and PEG # Tracheostomy with dislodgement. 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 CXR today negative for e/o aspiration or pna on personal review # depression - situational; appears euthymic currently -cont Lexapro 10mg -Xanax PRN # HCV+ - consider outpatient treatment # AHRF - multifocal, improved now on RA # FEN - cont TF # debility - PT--will need snf # Depression: on Lexapro #SPCMN with a BMI of 19.1 # pressure injury - wound care # dvt ppx - lovenox Dispo: pending placement. May require trach maturing x 30 days prior to dc. Subjective: no significant overnight events, patient feeling well Objective: Vital Signs Temp Pulse Resp BP Pulse Ox 36.5 C 56 L 18 153/54 H 96 08/27/17 16:00 08/27/17 16:01 08/27/17 16:00 08/27/17 16:00 08/27/17 16:01 Laboratory Results 08/26/17 05:09 08/26/17 05:09 08/26/17 08/27/17 08/28/17 05:59 05:59 05:59 Intake Total 2909 362 Output Total 430 350 Balance 2479 12 PT 14.4 SEC (12.0-15.0) 08/08/17 23:00 INR 1.10 (0.83-1.16) 08/08/17 23:00 awake alert nad trach cdi rrr no mrg cta coarse upper airway bs soft nt nd ICD10 Worksheet Patient Problems: Problems Problem Status Onset Pneumonia Acute
[2017-08-27] MEDS: ALPRAZolam 1 MG TAB TUBE SCH (20:28)
[2017-08-28] MEDS: oxyCODONE IR 5 MG TAB TUBE SCH ×4 (01:59→20:09)
[2017-08-28] MEDS ORDERED: PILOCARPINE HCL 5 MG TAB TUBE PRN (09:30)
[2017-08-28] MEDS: SENNOSIDES 17.6 MG/10 ML UDL TUBE SCH ×2 (09:33→20:10)
[2017-08-28] MEDS: ESCITALOPRAM OXALATE 10 MG TAB TUBE SCH (09:33)
[2017-08-28] MEDS: guaiFENesin 200 MG/10 ML UDL TUBE SCH ×2 (09:33→20:09)
[2017-08-28] MEDS: ENOXAPARIN 40 MG/0.4 ML SYR SC SCH (09:33)
--- NOTE | 2017-08-28 15:27 | HOSPPROG ---
Hospitalist Progress Note Assessment/Plan: Subjective Follow-up on squamous cell carcinoma of the tongue No acute events overnight. No new complaints today. Patient does states he has been having increase in mucus production. No fevers noted Objective Vital signs Temperature 36.7 blood pressure 98/55 heart rate 58 respirations 18 satting 98 % on room air General-patient is comfortable sitting in a chair at the bedside talking with family. No acute distress Heart-regular no murmurs noted Lungs-clear auscultation normal respiratory effort Neck-trachea appears normal without any significant erythema or swelling. Abdomen-soft nontender normal bowel sounds G-tube in place -no Le catheter in place Extremities-no significant pitting edema Musculoskeletal-no calf pain with palpation Labs as detailed below Assessment and plan 1. Squamous cell carcinoma of the tongue-patient is listed as stage T2 N0. It is HPV positive. Patient is receiving radiation treatment currently. He is status post tracheostomy due to concerns about airway protection and he has a gastrostomy tube in place to support nutrition and appears to be tolerating tube feeds at the current time. 2. Chronic hepatitis C-patient is working with cigarette tester and treatment has been discussed. 3. History of non-Hodgkin's lymphoma-patient was previously diagnosed and treated for Waldenstrom's macroglobulinemia. He is followed by Dr. Roberson. 4. Anxiety patient is currently on Lexapro and has as needed benzodiazepines ordered. 5. DVT prophylaxis-patient is currently on Lovenox. 6. Disposition-the plan is for short-term placement before returning home independently. Objective: Vital Signs Temp Pulse Resp BP Pulse Ox 36.7 C 59 L 18 98/55 L 96 08/28/17 09:15 08/28/17 14:27 08/28/17 09:15 08/28/17 09:15 08/28/17 14:27 Laboratory Results 08/26/17 05:09 08/26/17 05:09 08/27/17 08/28/17 08/29/17 05:59 05:59 05:59 Intake Total 362 1475 1625 Output Total 350 225 160 Balance 12 1250 1465 PT 14.4 SEC (12.0-15.0) 08/08/17 23:00 INR 1.10 (0.83-1.16) 08/08/17 23:00 ICD10 Worksheet Patient Problems: Problems Problem Status Onset Pneumonia Acute
[2017-08-28] MEDS: ALPRAZolam 1 MG TAB TUBE SCH (20:08)
[2017-08-29] MEDS: oxyCODONE IR 5 MG TAB TUBE SCH ×4 (03:59→20:11)
[2017-08-29] MEDS: SENNOSIDES 17.6 MG/10 ML UDL TUBE SCH ×2 (08:55→20:11)
[2017-08-29] MEDS: ENOXAPARIN 40 MG/0.4 ML SYR SC SCH (08:55)
[2017-08-29] MEDS: ESCITALOPRAM OXALATE 10 MG TAB TUBE SCH (08:55)
[2017-08-29] MEDS: guaiFENesin 200 MG/10 ML UDL TUBE SCH ×2 (08:55→20:11)
--- NOTE | 2017-08-29 10:22 | ASMTCMCOM ---
CM Note CM Note Notes: Chart reviewed. No change in discharge plan. Hpefully to [facility] about 09/04 if medically cleared for discharge at that time. CM to follow. Plan: TO SNF rehab at [facility] Date Signed: 08/29/2017 10:20 AM Electronically Signed By:Emmie Silvestre RN
--- NOTE | 2017-08-29 11:10 | SOAPPROG ---
SOAP Progress Note Assessment/Plan: Assessment: 72 yo gentleman w H&N cancer 1. 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 Fever/PNA/tracheitis - growing Klebsiella, s/p ceftriaxone 3. aspiration - severe, NPO, cont tube feedings 4. Pain - scheduled narcotics 5. HCV+ - outpt treatment 6. Thick secretions - guaifenesin trial 5. Social-will need SNF; difficulty has been placement due to trach. He asked about a cruise in December, I think that might be a bit aggressive although he will be recovering at that point 08/09/17 12:29 08/09/17 12:33 08/10/17 12:28 08/11/17 12:26 08/12/17 10:06 08/13/17 09:04 08/29/17 11:07 Subjective: Feels ok Objective: Vital Signs Temp Pulse Resp BP Pulse Ox 97.9 F 56 L 14 102/52 L 95 08/29/17 07:40 08/29/17 10:56 08/29/17 10:56 08/29/17 07:40 08/29/17 10:56 Laboratory Results 08/26/17 05:09 08/26/17 05:09 08/28/17 08/29/17 08/30/17 05:59 05:59 05:59 Intake Total 1475 3039 326 Output Total 225 310 225 Balance 1250 2729 101 PT 14.4 SEC (12.0-15.0) 08/08/17 23:00 INR 1.10 (0.83-1.16) 08/08/17 23:00 Physical Exam - Physical Exam General Appearance: cachetic EENT: other (Tracheostomy) ICD10 Worksheet Patient Problems: Problems Problem Status Onset Pneumonia Acute
--- NOTE | 2017-08-29 12:48 | HOSPPROG ---
Hospitalist Progress Note Assessment/Plan: Subjective Follow-up on squamous cell carcinoma of the tongue. No acute events overnight. No new complaints today. When I visit with patient respiratory therapy was making some adjustments to patient's trach. No complaints of shortness of breath or new pain complaints. Patient did state that he was going to go ahead and cancel a planned [place] for this coming December after his discussion with Dr. Taylor. Objective Vital signs Temperature 36.6 blood pressure 102/52 heart rate 55 respirations 16 satting 94 % on room air Physical exam General-patient appears comfortable he is sitting in a chair at the bedside awake alert conversant no acute distress. Heart-regular rate and rhythm no murmurs are appreciated Lungs-clear on auscultation with normal respiratory effort Neck-trachea appears to be in place there is slight erythema around the insertion site but does not appear acutely infected Abdomen-soft nontender nondistended normal bowel sounds -no Le catheter in place Extremities-no significant pitting edema Musculoskeletal-no calf pain with palpation Labs as detailed below Assessment and plan 1. Squamous cell carcinoma of the tongue-this is stage II, T2 N0. HPV positive. Patient is actively receiving radiation treatments. He is status post tracheostomy due to concerns about airway protection and he has a gastrostomy tube in place this protrusion and appears to be tolerate tube feeds. 2. Chronic hepatitis C-patient has a endless steamer tender that he has had ongoing follow -up with. 3. History of non-Hodgkin's lymphoma-patient's previous diagnosis and treated for Waldenstrom's macroglobulinemia. 4. Anxiety-patient is currently on Lexapro. He also takes alprazolam and most nights. He also has alprazolam as needed during the daytime. 5. DVT prophylaxis-patient is currently on Lovenox. 6. Disposition-the plan is for short-term placement refer returning home independently. Objective: Vital Signs Temp Pulse Resp BP Pulse Ox 36.6 C 56 L 14 102/52 L 95 08/29/17 07:40 08/29/17 10:56 08/29/17 10:56 08/29/17 07:40 08/29/17 10:56 Laboratory Results 08/26/17 05:09 08/26/17 05:09 08/28/17 08/29/17 08/30/17 05:59 05:59 05:59 Intake Total 1475 3039 326 Output Total 225 310 225 Balance 1250 2729 101 PT 14.4 SEC (12.0-15.0) 08/08/17 23:00 INR 1.10 (0.83-1.16) 08/08/17 23:00 ICD10 Worksheet Patient Problems: Problems Problem Status Onset Pneumonia Acute
--- NOTE | 2017-08-29 18:29 | GCON ---
[f rep st] CONSULTATION DATE OF CONSULTATION: 08/03/2017 HISTORY OF PRESENT ILLNESS: The patient is a 72-year-old male who was undergoing IR attempt at percutaneous feeding tube placement, but that was unsuccessful after perforating the stomach. The tube could not be positioned correctly. He is planning to be admitted at this time for a laparotomy for closure of the defect and placement of a gastrostomy tube. Risks and options have been fully discussed. The patient is undergoing treatment for lymphoma and a head and neck cancer. He has lost 35 pounds. He has a quite friable base of tongue tumor. PAST MEDICAL HISTORY: Includes lymphoma. PHYSICAL EXAMINATION: GENERAL: An alert 72-year-old male who is in some distress with abdominal pain. He is quite cachectic. HEAD AND NECK: Reveals no adenopathy. No icterus. Pupils are normal. Oral exam was not done. NECK: Supple, nontender. CHEST: Clear and symmetric. CARDIAC: Regular rhythm. ABDOMEN: Soft, scaphoid, somewhat tender with a recent puncture site for G- tube placement. : Genitalia are normal. EXTREMITIES: Benign with full range of motion, full pulses. NEUROLOGIC: Physiologic. IMPRESSION: Gastric perforation secondary to attempted IR gastrostomy tube placement. PLAN: Laparotomy for repair of the puncture site and placement of a feeding jejunostomy. Risks and options have been fully discussed, and he wishes to proceed. /[id number]/MODL MTDD
[2017-08-29] MEDS: ALPRAZolam 1 MG TAB TUBE SCH (20:11)
[2017-08-30] MEDS: ALPRAZolam 1 MG TAB TUBE PRN (01:09)
[2017-08-30] MEDS: oxyCODONE IR 5 MG TAB TUBE SCH ×2 (03:32→09:28)
[2017-08-30 04:59] LABS: PLATELET COUNT 150 10^3/uL (150-400)
[2017-08-30] MEDS: ENOXAPARIN 40 MG/0.4 ML SYR SC SCH (09:17)
[2017-08-30] MEDS: SENNOSIDES 17.6 MG/10 ML UDL TUBE SCH ×2 (09:17→20:35)
[2017-08-30] MEDS: ESCITALOPRAM OXALATE 10 MG TAB TUBE SCH (09:17)
[2017-08-30] MEDS: guaiFENesin 200 MG/10 ML UDL TUBE SCH ×2 (09:31→20:34)
--- NOTE | 2017-08-30 11:19 | SOAPPROG ---
SOAP Progress Note Assessment/Plan: Assessment: 1.) Base of Tongue Stage II,T2N0M0 Squamous Cell Carcinoma, on XRT XRT have been delivered, to finish if schedule is maintained on 10/01/17. 2.) Aspiration pneumonia with Klebsiella species 3.) On G tube tube feedings. 4.) COPD 5.) Hep. C (+) 6.) Hx. of Lymphoplasmacytic Lymphoma (Waldenstrom's Lymphoma). Plan: Continue ABx, TF, medical management, daily XRT. 08/30/17 11:16 Subjective: Stable over past 24 hours, and reports no new sx. Tube feedings going adequately Objective: VSS, afebrile, as noted here. HEENT- anicteric, no oral thrush Neck- trachestomy in usual position Chest- scattered Upper airway rhonchi CVS- RSR, no extra HS ABD- soft, NT, no mass or HSM. G-tube intact in exit positioning. EXT- thin, no edema, apparent muscle mass loss. Labs as noted here: Hgb 11.2 WBC 3.62BUN/Cr 21/0.9 Vital Signs Temp Pulse Resp BP Pulse Ox 36.4 C 56 L 18 105/55 L 98 08/30/17 08:55 08/30/17 08:55 08/30/17 08:55 08/30/17 08:55 08/30/17 08:55 Laboratory Results 08/30/17 04:22 08/30/17 04:22 08/29/17 08/30/17 08/31/17 05:59 05:59 05:59 Intake Total 3039 1910 Output Total 310 775 300 Balance 2729 1135 -300 PT 14.4 SEC (12.0-15.0) 08/08/17 23:00 INR 1.10 (0.83-1.16) 08/08/17 23:00 ICD10 Worksheet Patient Problems: Problems Problem Status Onset Pneumonia Acute
[2017-08-30] MEDS ORDERED: oxyCODONE IR 5 MG TAB TUBE PRN (12:14)
--- NOTE | 2017-08-30 12:27 | ASMTCMCOM ---
CM Note CM Note Notes: Chart reviewed. Discussed with Dr. Sánchez. Patient tolerating tube feedings. PT/OT. Daily radiation treatments. [facility] to evaluate him after tracheostomy in place for 30 days, about 09/04/17. CM to follow. Plan: SNF rehab when medically stable. Date Signed: 08/30/2017 12:27 PM Electronically Signed By:Emmie Silvestre RN
--- NOTE | 2017-08-30 16:32 | HOSPPROG ---
Hospitalist Progress Note Assessment/Plan: Subjective Follow-up on squamous cell carcinoma of the tongue. No acute events overnight. No new complaints today. No complaints of any shortness of breath. He did ask about when is trach would be removed in a sure with him that I would anticipate him being discharge from the hospital with a trach and then to do a short-term outpatient follow-up to discuss removal of the trach. Objective Vital signs Temperature 36.4 blood pressure 105/55 heart rate 56 respirations 18 satting 98 % on room air Physical exam General-patient appears comfortable sitting in chair at the bedside awake alert conversant no acute distress Neck-tracheostomy is in place. There is the mild amount of erythema but nothing that appears to be spreading. Heart-regular rate and rhythm no murmurs appreciated Lungs-Clear to auscultation with normal respiratory effort Abdomen-soft nontender nondistended. G-tube in place. -no Le catheter in place Extremities-no significant pitting edema Musculoskeletal-no calf pain with palpation Labs as detailed below Assessment plan 1. 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 HPV positive. Patient is actively receiving radiation treatments. He had treatment done today. He is status post tracheostomy placement secondary to concerns about airway protection and he has a gastrostomy tube in place to support his nutrition. He has tolerated tube feeds throughout this hospitalization without difficulty. 2. 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 He can plan on follow-up after this hospitalization. 3. History of Waldenstrom's macroglobulinemia-patient was previously followed by Dr. Roberson on this issue. 4. Anxiety-patient is currently on Lexapro. He also takes alprazolam on most nights but rarely during the days. 5. DVT prophylaxis-patient is currently on Lovenox. 6. Disposition-the plan is for short-term placement at a [facility] facility in [facility] once his tracheostomy has been in place for at least 30 days which I believe will be September 04. Objective: Vital Signs Temp Pulse Resp BP Pulse Ox 36.4 C 56 L 18 105/55 L 98 08/30/17 08:55 08/30/17 08:55 08/30/17 08:55 08/30/17 08:55 08/30/17 08:55 Laboratory Results 08/30/17 04:22 08/30/17 04:22 08/29/17 08/30/17 08/31/17 05:59 05:59 05:59 Intake Total 3039 1910 550 Output Total 310 775 300 Balance 2729 1135 250 PT 14.4 SEC (12.0-15.0) 08/08/17 23:00 INR 1.10 (0.83-1.16) 08/08/17 23:00 ICD10 Worksheet Patient Problems: Problems Problem Status Onset Pneumonia Acute
[2017-08-30] MEDS: ALPRAZolam 1 MG TAB TUBE SCH (20:34)
[2017-08-30] MEDS: oxyCODONE IR 5 MG TAB TUBE PRN (20:36)
[2017-08-31] MEDS: ESCITALOPRAM OXALATE 10 MG TAB TUBE SCH (08:39)
[2017-08-31] MEDS: guaiFENesin 200 MG/10 ML UDL TUBE SCH ×3 (08:40→22:26)
[2017-08-31] MEDS: ALPRAZolam 1 MG TAB TUBE PRN ×2 (08:40→16:35)
[2017-08-31] MEDS: ENOXAPARIN 40 MG/0.4 ML SYR SC SCH (08:47)
[2017-08-31] MEDS: SENNOSIDES 17.6 MG/10 ML UDL TUBE SCH ×2 (08:52→21:10)
--- NOTE | 2017-08-31 11:28 | HOSPPROG ---
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 HPV positive. Patient is actively receiving radiation treatments. S/P trach, peg, tolerating tube feeds, changed to bolus. 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 He can plan on follow-up after this hospitalization. History of Waldenstrom's macroglobulinemia- previously followed by Dr. Roberson. D/W Dr. Matson. Anxiety- cont Lexapro, prn alprazolam DVT prophylaxis-Lovenox. Disposition-the plan is for short-term placement at a long term facility in [facility] once his tracheostomy has been in place for at least 30 days which I believe will be September 04. Subjective: Pt doing ok. He is pleased with the bolus tube feeds, more freedom. No pain. Breathing fine. Tolerating tube feeds. Objective: Vital Signs Temp Pulse Resp BP Pulse Ox 36.6 C 58 L 15 116/64 98 08/31/17 09:08 08/31/17 09:08 08/31/17 09:08 08/31/17 09:08 08/31/17 09:08 Laboratory Results 08/30/17 04:22 08/30/17 04:22 08/30/17 08/31/17 09/01/17 05:59 05:59 05:59 Intake Total 1910 2258 263 Output Total 775 450 800 Balance 1135 1808 -537 PT 14.4 SEC (12.0-15.0) 08/08/17 23:00 INR 1.10 (0.83-1.16) 08/08/17 23:00 - Physical Exam Constitutional: no apparent distress Eyes: PERRL Ears, Nose, Mouth, Throat: moist mucous membranes Cardiovascular: regular rate and rhythym Respiratory: no respiratory distress, other (trach) Gastrointestinal: normoactive bowel sounds, soft, non-tender abdomen, other (peg ) Skin: warm Musculoskeletal: full muscle strength Neurologic: AAOx3 Psychiatric: interacting appropriately ICD10 Worksheet Patient Problems: Problems Problem Status Onset Pneumonia Acute
[2017-08-31] MEDS: oxyCODONE IR 5 MG TAB TUBE PRN ×2 (16:35→21:42)
--- NOTE | 2017-08-31 17:14 | SOAPPROG ---
SOAP Progress Note Assessment/Plan: Assessment: 08/05/2017 had trach placed. Has had issues with trach popping out. Respiratory was unable to suction today. Called to evaluate. Scope through trach revealed it to be anterior of the trachea. Trach removed and replaced by Dr. Thompson. Scope revealed trach to be in place and pierre visible. Ties replaced. Please call with questions. 08/31/17 17:02 Objective: Vital Signs Temp Pulse Resp BP Pulse Ox 36.7 C 60 18 107/57 L 97 08/31/17 15:50 08/31/17 16:03 08/31/17 16:03 08/31/17 15:50 08/31/17 16:03 Laboratory Results 08/30/17 04:22 08/30/17 04:22 08/30/17 08/31/17 09/01/17 05:59 05:59 05:59 Intake Total 1910 2258 713 Output Total 775 450 800 Balance 1135 1808 -87 PT 14.4 SEC (12.0-15.0) 08/08/17 23:00 INR 1.10 (0.83-1.16) 08/08/17 23:00 ICD10 Worksheet Patient Problems: Problems Problem Status Onset Pneumonia Acute
[2017-08-31] MEDS: ALPRAZolam 1 MG TAB TUBE SCH (21:10)
[2017-09-01] MEDS: guaiFENesin 200 MG/10 ML UDL TUBE SCH ×6 (03:09→23:11)
[2017-09-01] MEDS: ESCITALOPRAM OXALATE 10 MG TAB TUBE SCH (08:00)
[2017-09-01] MEDS: SENNOSIDES 17.6 MG/10 ML UDL TUBE SCH ×2 (08:00→20:27)
[2017-09-01] MEDS: ENOXAPARIN 40 MG/0.4 ML SYR SC SCH (08:00)
--- NOTE | 2017-09-01 12:13 | SOAPPROG ---
SOAP Progress Note Assessment/Plan: Assessment: 1.) Base of Tongue Stage II,T2N0M0 Squamous Cell Carcinoma, on XRT XRT have been delivered, to finish if schedule is maintained on 10/01/17. 2.) Aspiration pneumonia with Klebsiella species 3.) On G tube tube feedings. 4.) COPD 5.) Hep. C (+) 6.) Hx. of Lymphoplasmacytic Lymphoma (Waldenstrom's Lymphoma). 7.) Trach difficulties- may influence XRT planning if trach is removed. D/W patient this AM. Plan: Continue ABx, TF, medical management, daily XRT. 09/01/17 12:12 Subjective: Had difficulty with trach coming out last night, getting it repositioned. Now stable. Mild cough this AM. Objective: in NAD, VSS afebrile as noted here. HEENT- anicteric, no oral lesions Neck- trach seems in routine position and without bleeding this AM Chest- scattered airway rhonchi CVS- RSR, no extra HS ABD- soft, BS+, NT G tube in position EXT- no edema. Labs as noted here. WBC 3.62 Vital Signs Temp Pulse Resp BP Pulse Ox 37.1 C 68 12 89/48 L 96 09/01/17 09:17 09/01/17 09:17 09/01/17 09:17 09/01/17 09:17 09/01/17 09:17 Laboratory Results 08/30/17 04:22 08/30/17 04:22 08/31/17 09/01/17 09/02/17 05:59 05:59 05:59 Intake Total 2258 713 Output Total 450 800 Balance 1808 -87 PT 14.4 SEC (12.0-15.0) 08/08/17 23:00 INR 1.10 (0.83-1.16) 08/08/17 23:00 ICD10 Worksheet Patient Problems: Problems Problem Status Onset Pneumonia Acute
--- NOTE | 2017-09-01 15:15 | HOSPPROG ---
Hospitalist Progress Note Assessment/Plan: Squamous cell carcinoma of the tongue- stage II, T2 and 0. HPV positive. Patient is actively receiving radiation treatments. S/P trach, peg, tolerating bolus tube feeds. 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 Plan for outpt f/u. History of Waldenstrom's macroglobulinemia- previously followed by Dr. Roberson. D/W Dr. Matson. Anxiety- cont Lexapro, prn alprazolam DVT prophylaxis-Lovenox. Disposition-the plan is for short-term placement at a [facility] facility in [facility] once his tracheostomy has been in place for at least 30 days which I believe will be September 04. Subjective: Pt doing well. He is in good spirits, talkative about travel stories. Tolerating tube feeds, hopes to be able to eat and travel again. No fevers/chills. No Cp, SOB or cough. Objective: Vital Signs Temp Pulse Resp BP Pulse Ox 37.1 C 68 12 89/48 L 96 09/01/17 09:17 09/01/17 09:17 09/01/17 09:17 09/01/17 09:17 09/01/17 09:17 Laboratory Results 08/30/17 04:22 08/30/17 04:22 08/31/17 09/01/17 09/02/17 05:59 05:59 05:59 Intake Total 2258 713 Output Total 450 800 Balance 1808 -87 PT 14.4 SEC (12.0-15.0) 08/08/17 23:00 INR 1.10 (0.83-1.16) 08/08/17 23:00 - Physical Exam Constitutional: no apparent distress Eyes: PERRL Ears, Nose, Mouth, Throat: moist mucous membranes Cardiovascular: regular rate and rhythym, no murmur, rub, or gallop Respiratory: no respiratory distress, clear to auscultation Gastrointestinal: normoactive bowel sounds, soft, non-tender abdomen Skin: warm Musculoskeletal: full muscle strength Neurologic: AAOx3 Psychiatric: interacting appropriately ICD10 Worksheet Patient Problems: Problems Problem Status Onset Pneumonia Acute
[2017-09-01] MEDS: oxyCODONE IR 5 MG TAB TUBE PRN (20:27)
[2017-09-01] MEDS: ALPRAZolam 1 MG TAB TUBE SCH (20:27)
[2017-09-02] MEDS: guaiFENesin 200 MG/10 ML UDL TUBE SCH ×6 (02:33→20:55)
[2017-09-02] MEDS: SENNOSIDES 17.6 MG/10 ML UDL TUBE SCH ×2 (08:47→20:55)
[2017-09-02] MEDS: ENOXAPARIN 40 MG/0.4 ML SYR SC SCH (08:47)
[2017-09-02] MEDS: ESCITALOPRAM OXALATE 10 MG TAB TUBE SCH (08:48)
--- NOTE | 2017-09-02 12:46 | SOAPPROG ---
DANYELLE Progress Note Assessment/Plan: Assessment: 1.) Base of Tongue Stage II,T2N0M0 Squamous Cell Carcinoma, on XRT XRT have been delivered, to finish if schedule is maintained on 10/01/17. 2.) Aspiration pneumonia with Klebsiella species 3.) On G tube tube feedings. 4.) COPD 5.) Hep. C (+) 6.) Hx. of Lymphoplasmacytic Lymphoma (Waldenstrom's Lymphoma). 7.) Trach difficulties- may influence XRT planning if trach is removed. D/W patient this AM. I spoke with Dr. Brantley about patient's request to have XRT w/ out trach and Dr. Brantley reviewed issues with new Tx planning- which sounds technically substantial to re-plan accurately. D/W patient. Plan: Continue ABx, TF, medical management, daily XRT. 09/02/17 12:44 Subjective: Stable by symptoms, over last 24 hours. Objective: in NAD VSS, Afebrile as noted here. HEENT- anicteric, no oral thrush Neck- trach site is clean and intact Chest- clear CVS- RSR, no extra HS ABD- G tube in normal position in LUQ. 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
--- NOTE | 2017-09-02 13:18 | HOSPPROG ---
Hospitalist Progress Note Assessment/Plan: Squamous cell carcinoma of the tongue - stage II, T2 and 0. HPV positive. Patient is actively receiving radiation treatments. S/P trach, peg, tolerating bolus tube feeds. Onc reviewing trach issues with radiation oncology, likely to leave trach in place for now. Defer to rad onc if CT is indicated. Chronic hepatitis C-patient has a coding specialist that he has seen previously. Plan for outpt f/u. History of Waldenstrom's macroglobulinemia - previously followed by Dr. Roberson. Anxiety- cont Lexapro, prn alprazolam DVT prophylaxis-Lovenox. Disposition-the plan is for short-term placement at a alf facility in [facility] once his tracheostomy has been in place for at least 30 days which I believe will be September 04. Subjective: Pt doing ok, struggling with issues regarding removing trach or leaving it in during radiation. He is working with Dr. Brantley to determine the best approach. Tolerating tube feeds. No pain. Breathing fine. Objective: Vital Signs Temp Pulse Resp BP Pulse Ox 37.0 C 57 L 16 128/58 H 95 09/02/17 08:37 09/02/17 08:37 09/02/17 08:37 09/02/17 08:37 09/02/17 08:37 Laboratory Results 08/30/17 04:22 08/30/17 04:22 09/01/17 09/02/17 09/03/17 05:59 05:59 05:59 Intake Total 713 1350 Output Total 800 Balance -87 1350 PT 14.4 SEC (12.0-15.0) 08/08/17 23:00 INR 1.10 (0.83-1.16) 08/08/17 23:00 - Physical Exam Constitutional: no apparent distress Eyes: PERRL Ears, Nose, Mouth, Throat: moist mucous membranes Cardiovascular: regular rate and rhythym Respiratory: no respiratory distress, clear to auscultation Gastrointestinal: normoactive bowel sounds, soft, non-tender abdomen Skin: warm Musculoskeletal: full muscle strength Neurologic: AAOx3 Psychiatric: interacting appropriately ICD10 Worksheet Patient Problems: Problems Problem Status Onset Pneumonia Acute
--- NOTE | 2017-09-02 14:30 | ASMTCMCOM ---
CM Note CM Note Notes: CM made a referral to [facility] and left Alicia a message to discuss case. [place] [facility] and [facility] cannot accept pt at this time due to his daily radiation need until 10/01/17. CM left a msg w/ the [facility] and requested a call back to discuss case. CM discussed case w/ Sana, territory sales manager. CM to follow. Plan: TBD Date Signed: 09/02/2017 02:29 PM Electronically Signed By:NATHAN Carey
[2017-09-02] MEDS: ALPRAZolam 1 MG TAB TUBE SCH (20:55)
[2017-09-02] MEDS: oxyCODONE IR 5 MG TAB TUBE PRN (20:55)
[2017-09-03] MEDS: guaiFENesin 200 MG/10 ML UDL TUBE SCH ×6 (04:09→22:01)
[2017-09-03] MEDS: oxyCODONE IR 5 MG TAB TUBE PRN ×3 (05:49→20:34)
[2017-09-03] MEDS: ALPRAZolam 1 MG TAB TUBE PRN ×2 (05:51→09:05)
--- NOTE | 2017-09-03 08:36 | WOCRNPDOC ---
WOCRN Advanced Assessment Note - Skin Integrity Problem, Advanced Assess Coccyx Pressure Injury Dressing Type: Allevyn Life Dressing Description: Intact Exudate Amount: None Integumentary Issue Intervention: Dressing Changed Marva Wound Tissue: Blanching, Intact Marva Wound Swelling: None Pressure Injury Present on Admit: No Skin Integrity Problem Comment: Previous stage 2, now healed. Surrounding skin intact and blanching. Applied new dressing, and advise keeping a dressing in place for an additional week for protection. Discussed ongoing off-loading of site with patient, who has been very diligent about staying off of the affected area. Continue w/ pressure-relieving interventions as a precaution. floor manager Dawn informed about plan of care.
[2017-09-03] MEDS: ESCITALOPRAM OXALATE 10 MG TAB TUBE SCH (09:05)
[2017-09-03] MEDS: SENNOSIDES 17.6 MG/10 ML UDL TUBE SCH ×2 (09:05→20:21)
[2017-09-03] MEDS: ENOXAPARIN 40 MG/0.4 ML SYR SC SCH (09:06)
--- NOTE | 2017-09-03 11:45 | ASMTCMCOM ---
CM Note CM Note Notes: Met with patient to review discharge plan of care. [facility] unable to accept him due to daily radiation needs, [facility] agreeable to accept patient. I have asked that Alicia call to discuss patient concerns regarding room privacy and concerns over tracheostomy care. CM to follow. Plan: To SNF. Date Signed: 09/03/2017 11:45 AM Electronically Signed By:Emmie Silvestre RN
--- NOTE | 2017-09-03 12:57 | HOSPPROG ---
Hospitalist Progress Note Assessment/Plan: 72 yo male with h/o SCC of tongue presented for IR G tube placement, which was unsuccessful and he underwent surgical peg tube by Dr. Mercado. The tumor was friable and bleeding was an issue, thus he remained intubated post-operatively and ultimately required tracheostomy, which remains in place. Currently awaiting transfer to SNF rehab, likely tomorrow. Squamous cell carcinoma of the tongue - stage II, T2 and 0. HPV positive. Receiving daily radiation treatment per Dr. Brantley. S/P trach, peg, tolerating bolus tube feeds. Onc reviewing trach issues with radiation oncology, likely to leave trach in place for now. Defer to rad onc if CT is indicated. 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 Plan for outpt f/u. History of Waldenstrom's macroglobulinemia - previously followed by Dr. Roberson. Anxiety- cont Lexapro, prn alprazolam DVT prophylaxis-Lovenox. Disposition-the plan is for [facility]term placement at a [facility] facility once his tracheostomy has been in place for at least 30 days which will be September 04. CM working on plan for dc to SNF tomorrow. He will be sent with extra trach supplies. Subjective: Pt doing fine. No CP, SOB, or trouble breathing. Tolerating bolus tube feeds. No issues overnight. Objective: Vital Signs Temp Pulse Resp BP Pulse Ox 36.3 C 58 L 17 103/57 L 98 09/03/17 08:00 09/03/17 08:00 09/03/17 05:20 09/03/17 08:00 09/03/17 08:00 Laboratory Results 08/30/17 04:22 08/30/17 04:22 09/02/17 09/03/17 09/04/17 05:59 05:59 05:59 Intake Total 1350 1710 450 Balance 1350 1710 450 PT 14.4 SEC (12.0-15.0) 08/08/17 23:00 INR 1.10 (0.83-1.16) 08/08/17 23:00 - Physical Exam Constitutional: no apparent distress Eyes: PERRL Ears, Nose, Mouth, Throat: moist mucous membranes Cardiovascular: regular rate and rhythym Respiratory: no respiratory distress, clear to auscultation Skin: warm Musculoskeletal: full muscle strength Neurologic: AAOx3 Psychiatric: interacting appropriately ICD10 Worksheet Patient Problems: Problems Problem Status Onset Pneumonia Acute
--- NOTE | 2017-09-03 13:31 | SOAPPROG ---
DANYELLE Progress Note Assessment/Plan: Assessment: 1.) Base of Tongue Stage II,T2N0M0 Squamous Cell Carcinoma, on XRT XRT have been delivered, to finish if schedule is maintained on 10/01/17. 2.) Aspiration pneumonia with Klebsiella species 3.) On G tube tube feedings. 4.) COPD 5.) Hep. C (+) 6.) Hx. of Lymphoplasmacytic Lymphoma (Waldenstrom's Lymphoma). In observation phase of disease. 7.) Discharge planning- reported discharge to SNF as of Wednesday, 09/04, with transfer to [facility]. Tx starting next Wednesday. Plan: Continue ABx, TF, medical management, daily XRT. Transfer to SNF 09/04- tomorrow. 09/03/17 13:29 Subjective: Having uneventful day and stable overnight. Complete XRT without difficulty Objective: Vital Signs Temp Pulse Resp BP Pulse Ox 36.3 C 58 L 17 103/57 L 98 09/03/17 08:00 09/03/17 08:00 09/03/17 05:20 09/03/17 08:00 09/03/17 08:00 Laboratory Results 08/30/17 04:22 08/30/17 04:22 09/02/17 09/03/17 09/04/17 05:59 05:59 05:59 Intake Total 1350 1710 450 Balance 1350 1710 450 PT 14.4 SEC (12.0-15.0) 08/08/17 23:00 INR 1.10 (0.83-1.16) 08/08/17 23:00 ICD10 Worksheet Patient Problems: Problems Problem Status Onset Pneumonia Acute
[2017-09-03] MEDS: ALPRAZolam 1 MG TAB TUBE SCH (20:21)
[2017-09-04] MEDS: guaiFENesin 200 MG/10 ML UDL TUBE SCH ×6 (02:10→21:02)
[2017-09-04] MEDS: oxyCODONE IR 5 MG TAB TUBE PRN ×4 (08:22→21:01)
[2017-09-04] MEDS: ALPRAZolam 1 MG TAB TUBE PRN (08:22)
[2017-09-04] MEDS: ESCITALOPRAM OXALATE 10 MG TAB TUBE SCH (08:22)
[2017-09-04] MEDS: SENNOSIDES 17.6 MG/10 ML UDL TUBE SCH ×2 (08:23→21:02)
[2017-09-04] MEDS: ENOXAPARIN 40 MG/0.4 ML SYR SC SCH (08:34)
--- NOTE | 2017-09-04 13:57 | HOSPPROG ---
Hospitalist Progress Note Assessment/Plan: The patient is a 72-year-old male with PMH SCC of tongue who was admitted for feeding tube placement. IR G tube placement was unsuccessful, so he underwent surgical PEG tube placement w/ Dr. Mercado. Pt remained intubated post-op and required a tracheostomy. ASSESSMENT/PLAN: SCC of tongue -St II T2 N0 HPV+ Oral obstruction, s/p PEG tube and tracheostomy Hx Waldenstrom macroglobulinemia Chronic hepatitis-C Anxiety -Discussed w/ CM - unable to get SNF placement at this time - see CM note for further details. -Check procalcitonin and CBC in AM. -Pt is getting radiation Tx w/ Dr. Brantley. He was denied from [facility] because he is on radiation Tx. -Continue bolus TF VTE prophylaxis: Lovenox. Code Status: Full code. Disposition: Med surge with discharge to [facility] facility once patient gets placement. This patient is new to me. Reviewed patient's chart/records for this visit. Subjective: Today pt c/o coughing up secretions. Per RN, he has dislodged his trach several times during the admission. Pt is not aware when this occurs. Objective: Vital Signs Temp Pulse Resp BP Pulse Ox 36.8 C 64 16 110/54 L 97 09/04/17 08:00 09/04/17 08:00 09/04/17 08:00 09/04/17 08:00 09/04/17 08:00 Laboratory Results 08/30/17 04:22 08/30/17 04:22 09/03/17 09/04/17 09/05/17 05:59 05:59 05:59 Intake Total 1710 1800 950 Balance 1710 1800 950 PT 14.4 SEC (12.0-15.0) 08/08/17 23:00 INR 1.10 (0.83-1.16) 08/08/17 23:00 OBJECTIVE: Physical Exam: General: The patient is a male who is alert and in no acute distress. HEENT: normocephalic, extraocular movements intact, conjunctivae clear. Mucous membranes moist. Neck: trachea midline, tracheostomy in place. CV: +S1/S2, RRR, no MRG. Resp: unlabored, CTAB no RRW. Abd: soft and nondistended. Musculoskeletal: Reduced muscle tone/bulk. Neuro: cranial nerves II XII grossly intact. Intact gross motor and sensory function. Psych: Appropriate mood and appropriate affect. Skin: No pallor. No petechiae. Heme/lymph: +1 peripheral edema at bilateral ankles. Labs/Imaging/Other Tests: Personally reviewed/interpreted. ICD10 Worksheet Patient Problems: Problems Problem Status Onset Pneumonia Acute
--- NOTE | 2017-09-04 19:46 | ASMTCMCOM ---
CM Note CM Note Notes: Asked to see pt by KETTY Amor. Per Zuleyma, pt feels as though he is "being kicked out of the hospital." Spent approximately 45 minutes with pt. Attempted to provide reassurance to pt that he is not being kicked out and that CM is looking for an appropriate, safe discharge plan. Pt confused about why [facility] declined him. Pt also unhappy about prospect of going to [facility]. Per pt, liason from [facility] informed him "they only have 8 TV channels and all are in black and white." Pt refusing to go to a facility with 8 channels because he watches TV all day and states he "needs more channels to choose from." Pt also states he "does not want to pay anything out of pocket" and "must have a private room." CM explained placement process and encouraged pt to consider what areas he might be willing to reconsider, as his ideal placement may not be available. CM discsussed possibility of home care. Pt states he lives alone and has little support. He states he has limited use of his left arm and therefore, may have difficulty self-administering his tube feeds. The pt states he is also unaware when his trach dislodges. Pt with multiple complaints about not having a dedicated CM for his "challenging, complex case." Pt also frustrated by the "ever-changing nursing staff." Further support and reassurance provided. Call placed to Stefany at [facility]. Per Stefany, [facility] is unable to accept pt secondary to his Medicare part A. Due to Medicare part A, [facility] would have to assume all costs associated with transporting pt to radiation daily and all of his daily radiation fees; which is not something the facility can sustain. [facility] is also concerned about the fact the pt's trach has dislodged three times since placement. Call placed to Eleanor, spoke with Lorene. Per Lorene, [facility] is unable to accept pt for same reasons that [facility] cannot. Call placed to Alicia at [facility]. Per Alicia, the facility has more than 8 channels of TV - they have cable and full Wifi. In addition, Alicia said she would try to place pt in a "suite" which has a five foot wall and curtain the pt from another resident. Alicia explained if pt's radiation is billed as outpt, [facility] may not be able to accept pt as well. If radiation is billed as inpt, the facility can accept, assuming there are no further issues with the pt's trach. Alicia to re-eval the pt on Wednesday09/06/17 and re-evaluate insurance benefits. Update provided to KETTY Amor. Zuleyma to speak with Oncologist about whether the pt's radiation is inpt vs outpt. Update provided to Dr. Ngo. will speak with pt about facility issues on Wednesday09/05/17 and will continue to follow. Current Discharge Plan: To be determined Date Signed: 09/04/2017 07:45 PM Electronically Signed By:Nohemi Phillips RN
[2017-09-04] MEDS: ALPRAZolam 1 MG TAB TUBE SCH (21:00)
[2017-09-05] MEDS: guaiFENesin 200 MG/10 ML UDL TUBE SCH ×6 (03:52→21:23)
[2017-09-05] MEDS: oxyCODONE IR 5 MG TAB TUBE PRN ×3 (04:27→21:30)
[2017-09-05 04:37] LABS: PLATELET COUNT 125 10^3/uL (150-400)
[2017-09-05] MEDS: ESCITALOPRAM OXALATE 10 MG TAB TUBE SCH (11:10)
[2017-09-05] MEDS: POLYETHYLENE GLYCOL 3350 17 GM PKT TUBE PRN ×3 (11:10→21:24)
[2017-09-05] MEDS: SENNOSIDES 17.6 MG/10 ML UDL TUBE SCH ×2 (11:11→21:29)
[2017-09-05] MEDS: ENOXAPARIN 40 MG/0.4 ML SYR SC SCH ×2 (11:28→14:08)
--- NOTE | 2017-09-05 12:51 | HOSPPROG ---
Hospitalist Progress Note Assessment/Plan: The patient is a 72-year-old male with PMH SCC of tongue who was admitted for feeding tube placement. IR G tube placement was unsuccessful, so he underwent surgical PEG tube placement w/ Dr. Mercado. Pt remained intubated post-op and required a tracheostomy. He has had his trach >30 days. Sometimes it calls out. ASSESSMENT/PLAN: SCC of tongue -St II T2 N0 HPV+ Oral obstruction, s/p PEG tube and tracheostomy Neck/throat pain Hx Waldenstrom macroglobulinemia Thrombocytopenia, 2/2 above Chronic hepatitis-C Anxiety -4Ts score 3- low probability of HIT. -Discussed w/ CM - unable to get SNF placement at this time - see CM note for further details. -No evidence of infection based on labs - explained to pt that his secretions are benign. -Pt is getting radiation Tx w/ Dr. Brantley. He was denied from [facility] because he is on radiation Tx. -Continue bolus TF - Jevity followed by 150cc water bolus. -Check BMP/Mag in AM. VTE prophylaxis: Lovenox. Code Status: Full code. Disposition: Med surge with discharge to fpc facility once patient gets placement. This patient is new to me. Reviewed patient's chart/records for this visit. Objective: Vital Signs Temp Pulse Resp BP Pulse Ox 36.8 C 62 16 100/48 L 94 09/05/17 07:22 09/05/17 07:22 09/05/17 07:22 09/05/17 07:22 09/05/17 07:22 Laboratory Results 09/05/17 04:26 08/30/17 04:22 09/04/17 09/05/17 09/06/17 05:59 05:59 05:59 Intake Total 1800 1950 450 Balance 1800 1950 450 PT 14.4 SEC (12.0-15.0) 08/08/17 23:00 INR 1.10 (0.83-1.16) 08/08/17 23:00 ICD10 Worksheet Patient Problems: Problems Problem Status Onset Pneumonia Acute
[2017-09-05] MEDS ORDERED: CEPACOL LOZENGE PO PRN (15:41)
[2017-09-05] MEDS: ALPRAZolam 1 MG TAB TUBE SCH (21:22)
[2017-09-06] MEDS: guaiFENesin 200 MG/10 ML UDL TUBE SCH ×6 (02:20→20:30)
[2017-09-06] MEDS: oxyCODONE IR 5 MG TAB TUBE PRN ×2 (06:19→20:30)
[2017-09-06] MEDS: ENOXAPARIN 40 MG/0.4 ML SYR SC SCH (09:57)
[2017-09-06] MEDS: ESCITALOPRAM OXALATE 10 MG TAB TUBE SCH (09:57)
[2017-09-06] MEDS: SENNOSIDES 17.6 MG/10 ML UDL TUBE SCH ×2 (09:57→20:30)
--- NOTE | 2017-09-06 16:26 | WOCRNPDOC ---
WOCRN Advanced Assessment Note - Skin Integrity Problem, Advanced Assess Medial Neck Tracheostomy Site Dressing Type: Dressing Sponge Dressing Description: Clean/Dry, Intact Exudate Amount: None Skin Integrity Problem Comment: Respiratory (Kaykay) in room and had just changed dressing on trach. Small areas of erythema on claivicle are blanching and are not pressure injuries at this point. Continue plan of care with drain sponges. Reported to Breann FREIRE
--- NOTE | 2017-09-06 16:52 | HOSPPROG ---
Hospitalist Progress Note Assessment/Plan: The patient is a 72-year-old male with PMH SCC of tongue who was admitted for feeding tube placement. IR G tube placement was unsuccessful, so he underwent surgical PEG tube placement w/ Dr. Mercado. Pt remained intubated post-op and required a tracheostomy. He has had his trach >30 days. Sometimes the trach tube falls out. 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 -Discussed w/ CM - unable to get SNF placement at this time - see CM note for further details. -No evidence of infection based on labs - explained to pt that his secretions are benign. I have d/w RN and we suspect he lies supine too much, causing TF to come out of his trach. Recommended that HOB be kept at least 30deg. Told pt to sit upright for 1-2 hours after tube feed is administered. -Pt is getting radiation Tx w/ Dr. Brantley. -Continue bolus TF - Jevity followed by 150cc water bolus. -Add Dulcolax suppository prn constipation. -check AM lab VTE prophylaxis: Lovenox. Code Status: Full code. Disposition: Med surge with discharge to longterm facility once patient gets placement. Objective: Vital Signs Temp Pulse Resp BP Pulse Ox 36.6 C 58 L 17 87/48 L 99 09/06/17 15:57 09/06/17 15:57 09/06/17 15:57 09/06/17 15:57 09/06/17 15:57 Microbiology 09/06/17 06:45 - Final Sputum, Induced/Suctioned Laboratory Results 09/05/17 04:26 09/06/17 04:16 09/05/17 09/06/17 09/07/17 05:59 05:59 05:59 Intake Total 1950 1800 Balance 1950 1800 PT 14.4 SEC (12.0-15.0) 08/08/17 23:00 INR 1.10 (0.83-1.16) 08/08/17 23:00 ICD10 Worksheet Patient Problems: Problems Problem Status Onset Pneumonia Acute
[2017-09-06] MEDS ORDERED: BISACODYL 10 MG SUPP PR PRN (17:59)
[2017-09-06] MEDS: ALPRAZolam 1 MG TAB TUBE SCH (20:30)
[2017-09-07] MEDS: guaiFENesin 200 MG/10 ML UDL TUBE SCH ×6 (03:05→21:01)
[2017-09-07 04:37] LABS: PLATELET COUNT 143 10^3/uL (150-400)
[2017-09-07] MEDS: SENNOSIDES 17.6 MG/10 ML UDL TUBE SCH ×2 (08:59→21:01)
[2017-09-07] MEDS: ENOXAPARIN 40 MG/0.4 ML SYR SC SCH (08:59)
[2017-09-07] MEDS: ESCITALOPRAM OXALATE 10 MG TAB TUBE SCH (08:59)
[2017-09-07] MEDS: ALPRAZolam 1 MG TAB TUBE PRN (08:59)
[2017-09-07] MEDS: oxyCODONE IR 5 MG TAB TUBE PRN ×2 (11:25→21:00)
--- NOTE | 2017-09-07 12:22 | SOAPPROG ---
SOAP Progress Note Assessment/Plan: Assessment: 1. Base of tongue cancer,T2N0, HPV+ 2. s/p trach 3. s/p G tube 4. untreated hepatitis C Plan: - continue RT. has another 15-20 fractions remaining - can add fentanyl patch for oral pain. the pain and secretions are fairly typical of the radiation - consider removal of trach, which would facilitate discharge. i will discuss his case w/ Dr. Brantley of rad onc tomorrow when he is back in the office. 25 min spent w/ pt and in coordination of care d/w dr simpson Subjective: throat pain and increased oral secretion. Objective: exam chronically ill appearing HEENT: mild mucositis. thick oral secretions Lungs CTAB CV RRR no MGR Abd: +BS NT ND Ext: no edema Neuro: a+ox3 Vital Signs Temp Pulse Resp BP Pulse Ox 36.8 C 58 L 18 108/60 95 09/07/17 08:48 09/07/17 08:48 09/07/17 08:48 09/07/17 08:48 09/07/17 08:48 Microbiology 09/06/17 06:45 - Final Sputum, Induced/Suctioned Laboratory Results 09/07/17 03:52 09/06/17 04:16 09/06/17 09/07/17 09/08/17 05:59 05:59 05:59 Intake Total 1800 1350 Balance 1800 1350 PT 14.4 SEC (12.0-15.0) 08/08/17 23:00 INR 1.10 (0.83-1.16) 08/08/17 23:00 ICD10 Worksheet Patient Problems: Problems Problem Status Onset Pneumonia Acute
--- NOTE | 2017-09-07 14:38 | ASMTCMCOM ---
CM Note CM Note Notes: Chart reviewed. Discussed with Dr. Najera. Questions concerning remapping and possible removal ot tracheostomy. Radiation oncologist and ENT to see patient and review plan of care. Discussed possibility of patient self administering feedings to enable him to return home with [facility] services in place. He does have limited ROM in left hand. RN and OT to work with planning tube feeds and involving patient in care of g-tube. Also spoke with Alicia at [facility]. and she will look into patient's insurance coverage of transportation to and from radiation. CM to follow. Plan: TBD Date Signed: 09/07/2017 02:38 PM Electronically Signed By:Emmie Silvestre RN
[2017-09-07] MEDS: ALPRAZolam 1 MG TAB TUBE SCH (21:01)
--- NOTE | 2017-09-07 21:34 | HOSPPROG ---
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 HPV positive, s/p trach, actively receiving radiation treatments -not tolerating PEG TF o/n w/ high residual, counseled patient that we can cont to attempt bolus feedings during day and avoid continuous feeds o/n since he may be having greater reflux positionally, and we can trial PPI to reduce possible reflux -d/w Dr. Gorman patient's XRT plan, and he will review w/ Dr. Mcmillan the remapping plan after we have ENT determine whether trach can be removed (which would necessitate different map for XRT) -per Dr. Gorman, increased sputum production is likely 2/2 XRT, and we will monitor sputum sample, monitor WBC # Chronic hepatitis C-patient has a dross skimmer that he has seen previously. Plan for outpt f/u. # History of Waldenstrom's macroglobulinemia - previously followed by Dr. Roberson. # Anxiety- cont Lexapro, prn alprazolam Diet-TF w/ water bolus Code-Full DVT prophylaxis-Lovenox. Disposition-ADD uncertain, met w/ CM and we are working on SNF authorization Subjective: patient feeling like saliva production increasing Objective: Vital Signs Temp Pulse Resp BP Pulse Ox 36.6 C 59 L 16 112/61 98 09/07/17 20:00 09/07/17 20:00 09/07/17 20:00 09/07/17 20:00 09/07/17 20:00 Microbiology 09/06/17 06:45 - Final Sputum, Induced/Suctioned Laboratory Results 09/07/17 03:52 09/06/17 04:16 09/06/17 09/07/17 09/08/17 05:59 05:59 05:59 Intake Total 1800 1350 1050 Balance 1800 1350 1050 PT 14.4 SEC (12.0-15.0) 08/08/17 23:00 INR 1.10 (0.83-1.16) 08/08/17 23:00 - Time Spent With Patient Time Spent with Patient: greater than 35 minutes Time Spent with Patient: Greater than 35 minutes spent on this patients care, greater than 50% of time spent counseling, educating, and coordinating care regarding the above mentioned plan. - Physical Exam Constitutional: no apparent distress, not in pain, chronically ill appearing, uncomfortable Ears, Nose, Mouth, Throat: other (trach in place, capped) Cardiovascular: No systolic murmur, No tachycardia, No edema Respiratory: no respiratory distress, no rales or rhonchi, clear to auscultation Gastrointestinal: normoactive bowel sounds, soft, non-tender abdomen, no palpable masses, other (PEG in place) Skin: other (no erythema around PEG site) Neurologic: AAOx3 Psychiatric: interacting appropriately, not anxious, not encephalopathic, thought process linear ICD10 Worksheet Patient Problems: Problems Problem Status Onset Pneumonia Acute
[2017-09-08] MEDS: guaiFENesin 200 MG/10 ML UDL TUBE SCH ×6 (02:08→20:25)
[2017-09-08] MEDS: oxyCODONE IR 5 MG TAB TUBE PRN ×2 (08:34→20:25)
[2017-09-08] MEDS: ALPRAZolam 1 MG TAB TUBE PRN (08:34)
[2017-09-08] MEDS: ESCITALOPRAM OXALATE 10 MG TAB TUBE SCH (08:35)
[2017-09-08] MEDS: ENOXAPARIN 40 MG/0.4 ML SYR SC SCH (08:35)
[2017-09-08] MEDS ORDERED: PANTOPRAZOLE SODIUM 40 MG TAB PO SCH (09:00)
[2017-09-08] MEDS: POLYETHYLENE GLYCOL 3350 17 GM PKT TUBE PRN (11:23)
[2017-09-08] MEDS: SENNOSIDES 17.6 MG/10 ML UDL TUBE SCH ×2 (11:23→20:25)
--- NOTE | 2017-09-08 15:30 | HOSPPROG ---
Hospitalist Progress Note Assessment/Plan: Assessment: 72 yo M p/w new diagnosis squamous cell carcinoma of the tongue c/b acute hypoxic respiratory failure, aspiration pneumonia Plan: # Squamous cell carcinoma of the tongue - stage II, T2 and 0. HPV positive, s/p trach, actively receiving radiation treatments -d/w Dr. Gorman patient's XRT plan, will potentially get re-mapped tomorrow s/ p possible trach removal (if appropriate) -per Dr. Gorman, increased sputum production is likely 2/2 XRT, and we will monitor sputum sample, monitor WBC -cont to expectorate saliva secretions # Acute hypoxic respiratory failure. Resolved, 2/2 bleeding tumor and upper airway obstruction, required trach and vent -weaned off of all o2 -d/w Dr. Red, he reports that when he scoped patient last week, area was substantially improving and he will re-scope tomorrow to determine whether any obstruction persists, and, if not, will safely remove the trach # Suspected Klebsiella aspiration pneumonia. Evidenced by fever, leukocytosis, sputum Cx results, and aspiration on esophagram, s/p cefepime and then CTX # Chronic hepatitis C-patient has a human services professional that he has seen previously. Plan for outpt f/u. # History of Waldenstrom's macroglobulinemia - previously followed by Dr. Roberson. # Anxiety- cont Lexapro, prn alprazolam # Suspected GERD-started on PPI Diet-TF w/ water bolus, counseled patient to work w/ RN today to learn how to administer TF in preparation for dispo Code-Full DVT prophylaxis-Lovenox. Disposition-ADD uncertain, met w/ CM and we are working on SNF authorization High-level medical complexity, high risk for worsening morbidity and/or mortality secondary to the issues as outlined above. Subjective: patient reports increasing saliva secretions, no BM Objective: Vital Signs Temp Pulse Resp BP Pulse Ox 36.6 C 60 16 107/60 96 09/08/17 13:04 09/08/17 13:04 09/08/17 13:04 09/08/17 13:04 09/08/17 13:04 Microbiology 09/06/17 06:45 - Final Sputum, Induced/Suctioned Sputum Culture - Final Laboratory Results 09/08/17 04:25 09/08/17 04:25 0509/08/17 09/09/17 05:59 05:59 05:59 Intake Total 1350 1500 Balance 1350 1500 PT 14.4 SEC (12.0-15.0) 08/08/17 23:00 INR 1.10 (0.83-1.16) 08/08/17 23:00 - Physical Exam Constitutional: no apparent distress, not in pain, chronically ill appearing, No uncomfortable Ears, Nose, Mouth, Throat: other (trach place, copious oral secretions) Cardiovascular: regular rate and rhythym, no murmur, rub, or gallop, No edema Respiratory: no respiratory distress, no rales or rhonchi, clear to auscultation , other (reverberations in upper airway) Gastrointestinal: normoactive bowel sounds, soft, non-tender abdomen, no palpable masses, other (PEG in place), No distension Skin: No erythema Psychiatric: interacting appropriately, not anxious, not encephalopathic, thought process linear ICD10 Worksheet Patient Problems: Problems Problem Status Onset Pneumonia Acute
[2017-09-08] MEDS: ALPRAZolam 1 MG TAB TUBE SCH (20:25)
[2017-09-09] MEDS: guaiFENesin 200 MG/10 ML UDL TUBE SCH ×6 (02:44→20:53)
[2017-09-09] MEDS: oxyCODONE IR 5 MG TAB TUBE PRN ×3 (02:45→20:55)
[2017-09-09] MEDS: ENOXAPARIN 40 MG/0.4 ML SYR SC SCH (08:19)
[2017-09-09] MEDS: ALPRAZolam 1 MG TAB TUBE PRN (08:24)
[2017-09-09] MEDS: ESCITALOPRAM OXALATE 10 MG TAB TUBE SCH (08:24)
[2017-09-09] MEDS: ACETAMINOPHEN 650 MG/20.3 ML UDCUP TUBE PRN (10:33)
[2017-09-09] MEDS: LANSOPRAZOLE SUSP 30MG/10ML UDSYR (Adult) TUBE SCH (10:33)
[2017-09-09] MEDS: SENNOSIDES 17.6 MG/10 ML UDL TUBE SCH ×2 (10:37→20:54)
[2017-09-09] MEDS ORDERED: oxyCODONE IR 5 MG TAB TUBE ONE (10:42)
[2017-09-09 11:40] LABS: PLATELET COUNT 187 10^3/uL (150-400)
--- NOTE | 2017-09-09 15:25 | ASMTCMCOM ---
CM Note CM Note Notes: Pt's traech removed today. [facility] is reconsidering accepting pt. They were sent updates. CM to follow. Date Signed: 09/09/2017 03:24 PM Electronically Signed By:Taylor Henry LCSW
--- NOTE | 2017-09-09 16:09 | HOSPPROG ---
Hospitalist Progress Note Assessment/Plan: Assessment: 72 yo M p/w new diagnosis squamous cell carcinoma of the tongue c/b acute hypoxic respiratory failure, aspiration pneumonia Plan: # Squamous cell carcinoma of the tongue - stage II, T2 and HPV positive, s/p trach, actively receiving radiation treatments -d/w Dr. Red, he reports that trach safely removed and patient will receive XRT this afternoon and gauge whether he requires remapping -anticipate that sputum output from trach site will continue, will continue to need to change dressings -per Dr. Gorman, increased sputum production is likely 2/2 XRT # Lethargy. Acute, new problem, further w/u indicated. Potentially 2/2 cumulative effects of XRT vs. infxn -obtained CXR, no overt air space disease (personally interpreted) -WBC rising, monitor daily -PCT wnl, so unlikely to have aspiration PNA, no Abx at this time -monitor mental status # Acute hypoxic respiratory failure. Resolved, 2/2 bleeding tumor and upper airway obstruction, required trach and vent # Acute atelectasis. Hypoxia alleviated w/ deep inspiration, cont IS -cont o2 as needed # Suspected Klebsiella aspiration pneumonia. Evidenced by fever, leukocytosis, sputum Cx results, and aspiration on esophagram, s/p cefepime and then CTX # Chronic hepatitis C-patient has a dermatology nurse that he has seen previously. Plan for outpt f/u. # History of Waldenstrom's macroglobulinemia - previously followed by Dr. Roberson. # Anxiety- cont Lexapro, prn alprazolam # Suspected GERD-started on PPI Diet-TF w/ water bolus, counseled patient to work w/ RN today to learn how to administer TF in preparation for dispo Code-Full DVT prophylaxis-Lovenox. Disposition-ADD uncertain, met w/ CM and we are working on SNF authorization Subjective: increased lethargy s/p XRT this AM Objective: Vital Signs Temp Pulse Resp BP Pulse Ox 36.4 C 59 L 17 94/50 L 97 09/09/17 15:48 09/09/17 15:48 09/09/17 15:48 09/09/17 15:48 09/09/17 15:48 Microbiology 09/06/17 06:45 - Final Sputum, Induced/Suctioned Sputum Culture - Final Laboratory Results 09/09/17 11:05 09/09/17 11:05 09/08/17 09/09/17 09/10/17 05:59 05:59 05:59 Intake Total 1500 1850 Output Total 750 Balance 1500 1100 PT 14.4 SEC (12.0-15.0) 08/08/17 23:00 INR 1.10 (0.83-1.16) 08/08/17 23:00 - Physical Exam Constitutional: no apparent distress, not in pain, chronically ill appearing, No uncomfortable Cardiovascular: regular rate and rhythym, no murmur, rub, or gallop, No edema Respiratory: inspiratory crackles (R base on insp, clears w/ cough), other ( loud upper airway mucous sounds), No reduced air movement, No expiratory wheeze , No bronchial breath sounds Gastrointestinal: normoactive bowel sounds, soft, non-tender abdomen, no palpable masses, No distension Neurologic: AAOx3 Psychiatric: not anxious, flat affect, other (lethargic but arousable to voice, follows commands), No agitated ICD10 Worksheet Patient Problems: Problems Problem Status Onset Pneumonia Acute
--- NOTE | 2017-09-09 17:15 | SOAPPROG ---
SOAP Progress Note Assessment/Plan: Pt with trach. Radiation has stated that he is doing well with hsi therapy and they feel the trach can be removed safely. neck- trach removed today by Dr. Red, dressing applied. Plan: pt s/p trach removal. Will need to apply dressings to trach area. He is to f/u s/p completion of his XRT with Dr. Red. He will need Mod ba Sw tomorrow. 08/06/17 08:24 08/18/17 16:10 09/09/17 17:12 Objective: Vital Signs Temp Pulse Resp BP Pulse Ox 36.4 C 59 L 17 94/50 L 97 09/09/17 15:48 09/09/17 15:48 09/09/17 15:48 09/09/17 15:48 09/09/17 15:48 Laboratory Results 09/09/17 11:05 09/09/17 11:05 09/08/17 09/09/17 09/10/17 05:59 05:59 05:59 Intake Total 1500 1850 900 Output Total 750 Balance 1500 1100 900 PT 14.4 SEC (12.0-15.0) 08/08/17 23:00 INR 1.10 (0.83-1.16) 08/08/17 23:00 ICD10 Worksheet Patient Problems: Problems Problem Status Onset Pneumonia Acute
[2017-09-09] MEDS: ALPRAZolam 1 MG TAB TUBE SCH (20:55)
[2017-09-10] MEDS: guaiFENesin 200 MG/10 ML UDL TUBE SCH ×5 (03:10→20:03)
[2017-09-10 04:44] LABS: PLATELET COUNT 161 10^3/uL (150-400)
[2017-09-10] MEDS: ESCITALOPRAM OXALATE 10 MG TAB TUBE SCH (08:11)
[2017-09-10] MEDS: ALPRAZolam 1 MG TAB TUBE PRN (08:11)
[2017-09-10] MEDS: oxyCODONE IR 5 MG TAB TUBE PRN (08:12)
[2017-09-10] MEDS: LANSOPRAZOLE SUSP 30MG/10ML UDSYR (Adult) TUBE SCH (08:40)
[2017-09-10] MEDS: ENOXAPARIN 40 MG/0.4 ML SYR SC SCH (08:41)
--- NOTE | 2017-09-10 10:03 | ASMTCMCOM ---
CM Note CM Note Notes: Spoke with Angie at [facility]. They are still strongly considering taking pt but want to wait a few days to see how he does post traech removal. They requested that Case mgmt send updates every few days to include MD, RN and respiratoryprogress notes. CM will continue to follow. Date Signed: 09/10/2017 10:02 AM Electronically Signed By:Taylor Henry LCSW
[2017-09-10] MEDS: SENNOSIDES 17.6 MG/10 ML UDL TUBE SCH ×2 (12:15→20:01)
[2017-09-10] MEDS ORDERED: MAGNESIUM CITRATE 300 ML BOTTLE TUBE ONE (13:36)
--- NOTE | 2017-09-10 15:54 | ASMTCMCOM ---
CM Note CM Note Notes: Spoke with pt today about going to [facility] [place] after hearing from Onc Terence Cande that he was interested in home with home care too. Pt stated that he is hoping to be ready to go home in a few weeks but understands he needs SNF at [place]. Pt asked CM to make sure he has pvt room at [place]. Also spoke with Angie at about transportation to radiation appts. They will set it up with [facility] but pt will be charged. Let pt know. Also let know that pt prefers [facility] [place] from . Date Signed: 09/10/2017 03:53 PM Electronically Signed By:Taylor Henry LCSW
--- NOTE | 2017-09-10 17:31 | HOSPPROG ---
Hospitalist Progress Note Assessment/Plan: Assessment: 72 yo M p/w new diagnosis squamous cell carcinoma of the tongue c/b acute hypoxic respiratory failure, aspiration pneumonia and ongoing aspiration Plan: # Squamous cell carcinoma of the tongue - stage II, T2 and HPV positive, s/p trach, actively receiving radiation treatments -trach safely removed by Dr. Red 09/09, potential SNF requiring 48hrs post- trach monitoring to ensure he does not require recannulization -anticipate that sputum output from trach site will continue, will continue to need to change dressings -per Dr. Gorman, increased sputum production is likely 2/2 XRT -f/u as outpt w/ Dr. Roberson # Dysphagia. Acute, 2/2 above, VFSS today demonstrating mod-sev ongoing aspiration/dysphagia, unsafe to advance diet -cont PEG w/ TF -counseled patient that he really needs to work w/ RN to demonstrate proficiency at maneuvering TF administration w/ his RUE -cont to encourage patient to adhere to 4xd feedings w/ flushes # Acute hypoxic respiratory failure. Resolved, 2/2 bleeding tumor and upper airway obstruction, required trach and vent, resolved # Acute atelectasis. Hypoxia alleviated w/ deep inspiration, cont IS -cont o2 as needed # Suspected Klebsiella aspiration pneumonia. Evidenced by fever, leukocytosis, sputum Cx results, and aspiration on esophagram, s/p cefepime and then CTX # Chronic hepatitis C-patient has a finisher brush that he has seen previously. Plan for outpt f/u. # History of Waldenstrom's macroglobulinemia - previously followed by Dr. Roberson. # Anxiety- cont Lexapro, prn alprazolam # Suspected GERD-started on PPI # Acute hyponatremia - 2/2 poor PO intake 2/2 poor acceptance of PEG TF -give NS o/n, repeat sNa in AM, check [place] to ensure this is not 2/2 too much free water via PEG Diet-TF w/ water bolus, counseled patient to work w/ RN today to learn how to administer TF in preparation for dispo Code-Full DVT prophylaxis-Lovenox. Disposition-ADD 09/13 to SNF ([facility]), Case mgmt will continue working w/ patient to meet his needs Subjective: patient reports dry mouth, counseled him that he can use swabs for lips, hard candy/lozenges to increase saliva, but needs to spit out saliva/candy /lozenge and not attempt to swallow Objective: Vital Signs Temp Pulse Resp BP Pulse Ox 36.6 C 61 12 100/58 L 99 09/10/17 15:54 09/10/17 15:54 09/10/17 15:54 09/10/17 15:54 09/10/17 15:54 Laboratory Results 09/10/17 04:30 09/10/17 11:07 09/09/17 09/10/17 09/11/17 05:59 05:59 05:59 Intake Total 1850 900 Output Total 750 450 Balance 1100 450 PT 14.4 SEC (12.0-15.0) 08/08/17 23:00 INR 1.10 (0.83-1.16) 08/08/17 23:00 - Time Spent With Patient Time Spent with Patient: greater than 35 minutes Time Spent with Patient: Greater than 35 minutes spent on this patients care, greater than 50% of time spent counseling, educating, and coordinating care regarding the above mentioned plan. - Physical Exam Constitutional: no apparent distress, not in pain, chronically ill appearing, uncomfortable Ears, Nose, Mouth, Throat: other (dry lips/teeth) Cardiovascular: systolic murmur (I/ at sternum), No irregularly irregular, No tachycardia, No edema Respiratory: no respiratory distress, no rales or rhonchi, clear to auscultation Neurologic: AAOx3 Psychiatric: interacting appropriately, not anxious, not encephalopathic, thought process linear, other (lethargic but arousable to voice) ICD10 Worksheet Patient Problems: Problems Problem Status Onset Pneumonia Acute
[2017-09-10] MEDS: NS 1,000 ML IV SCH (18:22)
[2017-09-10] MEDS: ALPRAZolam 1 MG TAB TUBE SCH (20:02)
[2017-09-11] MEDS: guaiFENesin 200 MG/10 ML UDL TUBE SCH ×7 (00:22→21:58)
[2017-09-11] MEDS: oxyCODONE IR 5 MG TAB TUBE PRN ×3 (02:36→21:58)
[2017-09-11 04:34] LABS: PLATELET COUNT 197 10^3/uL (150-400)
[2017-09-11] MEDS: NS 1,000 ML IV SCH (06:44)
[2017-09-11] MEDS: LANSOPRAZOLE SUSP 30MG/10ML UDSYR (Adult) TUBE SCH (09:03)
[2017-09-11] MEDS: SENNOSIDES 17.6 MG/10 ML UDL TUBE SCH ×2 (09:09→19:41)
[2017-09-11] MEDS: ALPRAZolam 1 MG TAB TUBE PRN ×2 (09:09→21:59)
[2017-09-11] MEDS: ESCITALOPRAM OXALATE 10 MG TAB TUBE SCH (09:10)
[2017-09-11] MEDS: ENOXAPARIN 40 MG/0.4 ML SYR SC SCH (09:25)
--- NOTE | 2017-09-11 16:06 | HOSPPROG ---
Hospitalist Progress Note Assessment/Plan: * Squamous cell carcinoma of the tongue, T2N0, HPV positive -XRT Mon-Fri * s/p trach removal -secretions improving * Dysphagia s/p PEG -NPO - still high aspiration risk on VFSS -bolus TF 4x day * Acute respiratory failure - resolved -due to bleeding tumor and upper airway obstruction * Klebsiella aspiration PNA -antibiotics complete * Hep C - untreated * Waldenstrom's macroglobulinemia Subjective: No new complaints. Objective: Vital Signs Temp Pulse Resp BP Pulse Ox 36.4 C 50 L 14 105/58 L 98 09/11/17 08:58 09/11/17 08:58 09/11/17 08:58 09/11/17 08:58 09/11/17 08:58 Laboratory Results 09/11/17 04:24 09/11/17 04:24 09/10/17 09/11/17 09/12/17 05:59 05:59 05:59 Intake Total 900 1555 1659 Output Total 450 600 450 Balance 139 149 2853 PT 14.4 SEC (12.0-15.0) 08/08/17 23:00 INR 1.10 (0.83-1.16) 08/08/17 23:00 Old chart reviewed - lengthy stay involving intubation/ICU with subsequent trach last CXR - negative - Physical Exam Constitutional: no apparent distress, appears nourished, not in pain Cardiovascular: regular rate and rhythym, no murmur, rub, or gallop Respiratory: no respiratory distress, no rales or rhonchi, clear to auscultation Gastrointestinal: normoactive bowel sounds, soft, non-tender abdomen, no palpable masses Skin: no rashes or abrasions, no fluctuance, no induration Neurologic: AAOx3, sensation intact bilaterally Psychiatric: interacting appropriately, not anxious, not encephalopathic, thought process linear ICD10 Worksheet Patient Problems: Problems Problem Status Onset Pneumonia Acute
[2017-09-12] MEDS: guaiFENesin 200 MG/10 ML UDL TUBE SCH ×6 (01:59→20:15)
[2017-09-12] MEDS: LANSOPRAZOLE SUSP 30MG/10ML UDSYR (Adult) TUBE SCH (08:30)
[2017-09-12] MEDS: SENNOSIDES 17.6 MG/10 ML UDL TUBE SCH ×2 (08:30→20:15)
[2017-09-12] MEDS: ESCITALOPRAM OXALATE 10 MG TAB TUBE SCH (08:30)
[2017-09-12] MEDS: ENOXAPARIN 40 MG/0.4 ML SYR SC SCH (08:44)
--- NOTE | 2017-09-12 12:07 | ASMTCMCOM ---
CM Note CM Note Notes: Updated patient info, Therapy notes and RT notes sent to SNF's interested in admitted patient. Date Signed: 09/12/2017 12:06 PM Electronically Signed By:Edie More LCSW
--- NOTE | 2017-09-12 13:19 | SOAPPROG ---
SOAP Progress Note Assessment/Plan: Assessment: 1. Base of tongue cancer,T2N0, HPV+ 2. s/p trach 3. s/p G tube 4. untreated hepatitis C Patient is mostly complaining of copious secretions. He is able to handle them. Had a bowel movement today. Plan: - continue RT. - placement efforts underway Subjective: Lots of secretions orally. Had BM today. Objective: Vital Signs Temp Pulse Resp BP Pulse Ox 36.6 C 56 L 16 118/66 93 09/12/17 08:27 09/12/17 08:27 09/12/17 08:27 09/12/17 08:27 09/12/17 08:27 Laboratory Results 09/11/17 04:24 09/11/17 04:24 09/10/17 09/11/17 09/12/17 23:59 23:59 23:59 Intake Total 3664 1200 Output Total 450 1225 Balance -450 2439 1200 PT 14.4 SEC (12.0-15.0) 08/08/17 23:00 INR 1.10 (0.83-1.16) 08/08/17 23:00 Physical Exam - Physical Exam General Appearance: alert, moderate distress Neuro/Psych: alert, oriented x 3 ICD10 Worksheet Patient Problems: Problems Problem Status Onset Pneumonia Acute
--- NOTE | 2017-09-12 18:12 | HOSPPROG ---
Hospitalist Progress Note Assessment/Plan: The patient is a 72-year-old male with PMH SCC of tongue who was admitted for feeding tube placement. IR G tube placement was unsuccessful, so he underwent surgical PEG tube placement w/ Dr. Mercado. Pt remained intubated post-op and required a tracheostomy. He has had his trach >30 days. Sometimes the trach tube falls out. 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 Brantley. -Continue bolus TF. -Continue meds. Requested that Pharmacist verify and update home med list for QHS dose of Xanax. -Decrease oxycodone dose, since pt denies pain. VTE prophylaxis: Lovenox. Code Status: Full code. Disposition: Med surge with discharge to [facility] facility once patient gets placement in the next 1-2 days. Subjective: Today patient feels generally unwell. He complains of excessive secretions that he coughs up. Denies pain. He wants to take 2 mg of Xanax at night, because that is what he is accustomed to taking at home Objective: Vital Signs Temp Pulse Resp BP Pulse Ox 36.4 C 64 16 123/64 H 95 09/12/17 15:46 09/12/17 15:46 09/12/17 15:46 09/12/17 15:46 09/12/17 15:46 Laboratory Results 09/11/17 04:24 09/11/17 04:24 09/11/17 09/12/17 09/13/17 05:59 05:59 05:59 Intake Total 1555 2859 950 Output Total 600 625 Balance 955 2234 950 PT 14.4 SEC (12.0-15.0) 08/08/17 23:00 INR 1.10 (0.83-1.16) 08/08/17 23:00 General: The patient is a thin male who is alert and in no acute distress. HEENT: normocephalic, extraocular movements intact, conjunctivae clear, no lesions on face. Nares and oral mucosa pink and moist. Neck: trachea midline, dressing over tracheostomy site CDI. Resp: unlabored breathing. Abd: soft and nondistended. Peg tube in place. Musculoskeletal: Normal muscle tone and bulk. Neuro: cranial nerves II XII grossly intact. Intact gross motor and sensory function. Psych: appropriate mood/affect. Skin: no pallor. Heme/lymph: No peripheral edema. ICD10 Worksheet Patient Problems: Problems Problem Status Onset Pneumonia Acute
[2017-09-12] MEDS: oxyCODONE IR 5 MG TAB TUBE PRN (20:15)
[2017-09-12] MEDS: ALPRAZolam 1 MG TAB TUBE PRN ×2 (20:15→23:00)
[2017-09-13] MEDS: guaiFENesin 200 MG/10 ML UDL TUBE SCH ×7 (01:48→20:42)
[2017-09-13] MEDS: LANSOPRAZOLE SUSP 30MG/10ML UDSYR (Adult) TUBE SCH (07:46)
[2017-09-13] MEDS: ESCITALOPRAM OXALATE 10 MG TAB TUBE SCH (07:47)
[2017-09-13] MEDS: ENOXAPARIN 40 MG/0.4 ML SYR SC SCH (08:07)
[2017-09-13] MEDS: SENNOSIDES 17.6 MG/10 ML UDL TUBE SCH ×2 (10:50→20:42)
--- NOTE | 2017-09-13 13:39 | HOSPPROG ---
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 # AHRF - multifocal, improved now on RA # FEN - cont TF # debility - PT--will need snf #SPCMN with a BMI of 19.1 # pressure injury - wound care # dvt ppx - lovenox Dispo: dc to snf likely in am Subjective: no acute overnight events, patient frustrated with still being in hospital Objective: Vital Signs Temp Pulse Resp BP Pulse Ox 36.7 C 52 L 16 113/65 99 09/13/17 07:41 09/13/17 07:41 09/13/17 07:41 09/13/17 07:41 09/13/17 07:41 Laboratory Results 09/11/17 04:24 09/11/17 04:24 09/12/17 09/13/17 09/14/17 05:59 05:59 05:59 Intake Total 2859 1400 900 Output Total 625 300 Balance 2234 1100 900 PT 14.4 SEC (12.0-15.0) 08/08/17 23:00 INR 1.10 (0.83-1.16) 08/08/17 23:00 awake alert nad anicteric op clear rrr no mrg cta b soft nt nd no cce warm dry well perfused ICD10 Worksheet Patient Problems: Problems Problem Status Onset Pneumonia Acute
[2017-09-13] MEDS ORDERED: ALPRAZolam 1 MG TAB TUBE PRN ×2 (16:04→20:14)
--- NOTE | 2017-09-13 16:19 | ASMTCMCOM ---
CM Note CM Note Notes: Chart reviewed. Recent notes sent yesterday to [facility], Patient's tacheostomy removed 09/09. Able to maintain respiratory status and manage secretions. Stefany from [facility] able to accept and the patient wishes to go tomorrow after radiation therapy. He clearly understands that his transportation to and from his radiation treatment will be his financial responsibility at 12 dollars a day until October 01. CM to follow. Plan: DC to SNF [facility] tomorrow after radiation. Date Signed: 09/13/2017 04:18 PM Electronically Signed By:Emmie Silvestre RN
[2017-09-13] MEDS ORDERED: ALPRAZolam 1 MG TAB TUBE SCH (21:00)
[2017-09-13] MEDS: oxyCODONE IR 5 MG TAB TUBE PRN (23:51)
[2017-09-14] MEDS: guaiFENesin 200 MG/10 ML UDL TUBE SCH ×4 (03:34→12:37)
[2017-09-14] MEDS: ESCITALOPRAM OXALATE 10 MG TAB TUBE SCH (08:16)
[2017-09-14] MEDS: LANSOPRAZOLE SUSP 30MG/10ML UDSYR (Adult) TUBE SCH (08:16)
[2017-09-14] MEDS: ENOXAPARIN 40 MG/0.4 ML SYR SC SCH (08:17)
--- NOTE | 2017-09-14 10:23 | PDIAF ---
- Diagnosis Code Status: Full Code - Medication Management Discharge Medications: Medications to Continue on Transfer ALPRAZolam [Xanax 1 MG (*)] 1 mg PO DAILY PRN 09/23/15 [Last Taken Unknown] Docusate Sodium [Colace 100 MG (*)] 100 mg PO BID 07/30/17 [Last Taken Unknown] Escitalopram Oxalate [Lexapro 10 MG] 10 mg PO DAILY 07/30/17 [Last Taken Unknown ] ALPRAZolam [Xanax 1 MG (*)] 2 mg TUBE HS tab 09/14/17 [Last Taken Unknown] Acetaminophen [Tylenol 650/20.3ML Oral Liq (*)] 650 mg TUBE Q4 PRN udcup [Last Taken Unknown] Albuterol [Proventil Neb] 3 ml IH Q4HRS PRN deyvial 09/14/17 [Last Taken Unknown] Benzocaine/Menthol 15/4 [Cepacol Lozenge] 1 ea PO TID PRN lozenge 09/14/17 [ Last Taken Unknown] Lansoprazole [PREVACID 30mg/10ml susp (Adult) (*)] 30 mg TUBE DAILY udsyr 09/14 [Last Taken Unknown] Pilocarpine HCl [Salagen 5mg (*)] 5 mg TUBE BID PRN tab 09/14/17 [Last Taken Unknown] Polyethylene Glycol 3350 [Miralax 17 gm (*)] 17 gm TUBE DAILY PRN pkt 09/14/17 [Last Taken Unknown] oxyCODONE IR [Oxycodone Ir (*)] 5 mg TUBE 0300,0900,1500,2100 PRN #60 tab [Last Taken Unknown] Discharge Medications: Refer to the Discharge Home Medication list for PRN reason. - Orders Services needed: Registered Nurse, Certified Serials Librarian, Physical Therapy, Occupational Therapy, Speech Language Pathologist Diet Texture: Ice Chips, Non Oral Meds Tube feeding: Jevity 1.5 High calorie Weigh Patient: weekly Le: Not applicable Activity/Weight Bearing Restrictions: As tolerated. - Labs/Radiology BMP Date: 09/20/17 CBC w/diff Date: 09/20/17 - Follow Up Care Current Providers and Referrals: Buddy Munoz MD [Primary Care Provider] - Mario Roberson MD [Medical Doctor] - follow up in 1 week
--- NOTE | 2017-09-14 10:23 | PDDCSUM ---
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 He will need f/u with speech after discharge to determine when he could be trialed on a diet again # depression - situational; denies suicidality but notes that if he had this to do over again, he would have shot himself rather than undergo this treatment -cont Lexapro 10mg -Xanax PRN - CM working on getting him set up for f/u with [facility] for ongoing psych management # HCV+ - consider outpatient treatment # AHRF - multifocal, improved now on RA # FEN - cont TF # debility - PT--will need snf #SPCMN with a BMI of 18.8 currently # pressure injury - wound care DC to SNF f/u with oncology, radiation oncology as currently scheduled > 35 min spent in dc more than half in coordination of care
--- NOTE | 2017-09-14 10:35 | SOAPPROG ---
SOAP Progress Note Assessment/Plan: Assessment: 1. Base of tongue cancer,T2N0, HPV+ 2. s/p trach, now removed 3. s/p G tube 4. untreated hepatitis C Patient is mostly complaining of copious secretions. Plan: - continue RT, 12 more treatments after today - [facility] - follow up med onc Karol and ENT Teofilo post RT 08/09/17 12:29 08/09/17 12:33 08/10/17 12:28 08/11/17 12:26 08/12/17 10:06 08/13/17 09:04 08/29/17 11:07 09/14/17 10:33 Subjective: Secretions Objective: Vital Signs Temp Pulse Resp BP Pulse Ox 97.7 F 61 16 111/56 L 100 09/14/17 08:00 09/14/17 08:00 09/14/17 08:00 09/14/17 08:00 09/14/17 08:00 Laboratory Results 09/11/17 04:24 09/11/17 04:24 09/13/17 09/14/17 09/15/17 05:59 05:59 05:59 Intake Total 1400 2070 Output Total 300 Balance 1100 2070 PT 14.4 SEC (12.0-15.0) 08/08/17 23:00 INR 1.10 (0.83-1.16) 08/08/17 23:00 ICD10 Worksheet Patient Problems: Problems Problem Status Onset Pneumonia Acute
[2017-09-14] MEDS: SENNOSIDES 17.6 MG/10 ML UDL TUBE SCH (11:09)
--- NOTE | 2017-09-14 11:49 | ASMTCMCOM ---
CM Note CM Note Notes: Patient has been medically accepted to [facility]. He has been cleared for discharge per hospital medicine. Final orders via allscripts. Call placed to [facility] in [place] as patient has depression and has been seen by Kimi Nair in the past. Left 2 messages with Gaby regarding needs for appointment in place prior to discharge from this facility. Awaiting return call. Will fax reports r/t his behavioral health to [facility]. He will continue his daily radiation treatments and is agreeable to paying his own transportation fees. RN will call report to [facility]. CM available should other needs arise. Plan: To SNF [facility]. Date Signed: 09/14/2017 11:48 AM Electronically Signed By:Emmie Silvestre RN
[2017-09-14 13:15] VITALS: BP 118/54
--- NOTE | 2017-09-14 14:27 | ASMTCMCOM ---
CM Note CM Note Notes: Spoke with [facility]. appointment made for 09/29/17 at 2 pm. Per Gaby at [facility] she will discuss with provider to see if earlier appointment may be available Patient ready for transfer to [facility] via Wheelchair van. CM available should other needs arise. Date Signed: 09/14/2017 02:27 PM Electronically Signed By:Emmie Silvestre RN
--- NOTE | 2017-09-15 15:54 | ASDISCHSUM ---
Discharge Information Plan Status:SNF Medically Cleared to Leave:09/14/2017 Discharge Date:09/14/2017 03:39 PM CM D/C Disposition:Jail Facility ADT D/C Disposition:Jail Facility Projected Discharge Date:09/13/2017 11:00 AM Transportation at D/C:Wheelchair Van Discharge Delay Reason: Follow-Up Date:09/13/2017 11:00 AM Discharge Slot: Final Diagnosis:Tongue tumor Placement Information Referral Type:*Long-Term/SNF Referral ID:[id number] Provider Name:[facility] Address 1:[address] Address 2: City:[place] Selection Factors: State:[place] Patient Contact Information Contact Name:ANDREA Relationship:Sister Address:[address] [facility] City:[place] Alternate Phone: State/Zip Code:[place] [address] Email: Financial Information Financial Class:Medicare Primary Plan Desc:MEDICARE INPATIENT Primary Plan Number:[id number] Secondary Plan Desc:AARP/MDR SUPPLEMENT Secondary Plan Number:[id number] Assessment Information [facility] Initial CM Assessment Living Arrangements What is your living Answers: Alone arrangement? Who do you live with? Type Of Residence What kind of residence do Answers: House you live in? Discharge Plan Comments Coordination Status Comments Notes: Patient is a 72yo single male who comes to [facility] for Gastrostomy Tube placement. Patient has a preoperative diagnosis of head and neck cancer. This is a replacement tube so the hole in the stomach that accepted the first tube will need to be repaired. MACHINE SCALLOP CUTTER has been ordered. D/C plan TBD. CM will follow. Date Signed: 08/04/2017 02:39 PM Electronically Signed By:Lilibeth Alex LCSW [facility] FABIANA Progress Note CM Note CM Note Notes: Patient had tracheostomy yesterday and is doing well post op. Plan to wean sedation today and increase patient activity. Patient to transfer to [facility] today. D/C plan TBD. CM will follow. Date Signed: 08/06/2017 01:14 PM Electronically Signed By:Lilibeth Alex LCSW [facility] FABIANA Progress Note CM Owen CM Note Notes: Spoke to patient and his sister, Zeina who lives in [place]. Patient has a new a new trach, PEG tube and will be getting daily radiation for the next 7wks. Set up [facility] transport for today's radiation appt 3:15. Patient may transfer to after radiation. Not a SNF candidate due to new trach, not In-pt Rehab candidate due to radiation, also not LTAC appropiate due to daily transport for radiation. Date Signed: 08/09/2017 03:28 PM Electronically Signed By:Edie More LCSW [facility] FABIANA Progress Note FABIANA Weaver CM Note Notes: [facility] dropped of patient's schedule for radiation treatments. Patient may be transferred to today. If patient transfers, the schedule will be given to FABIANA Vazquez and the on that floor.Patient's first appointment is on 08-13-2017. Will set appointment transport up tomorrow when we know if patient remains in ICU or transfers to . CM will follow. Date Signed: 08/11/2017 02:46 PM Electronically Signed By:Lilibeth Alex LCSW [facility] CM Progress Note CM Note CM Note Notes: Pt tx from ICU. Pt will start radiation teratments on Wednesday. It is unknown if and when he will start chemo. No LTAC will take pt with chemo or need to transport to radiation. SNFs are more likely to accomodate pt but not until his traech has been in at least 3 weeks. Pt lives alone so will need a facility [place]. CM to follow. Date Signed: 08/13/2017 06:36 PM Electronically Signed By:Taylor Henry LCSW [facility] CM Progress Note CM Note CM Note Notes: Chart reviewed. No significant change in plan. Still in probable need of SNF. Has some situational depression. Will ask spiritual services to see. CM to follow. Plan: TBD Date Signed: 08/16/2017 04:12 PM Electronically Signed By:Emmie Silvestre RN [facility] CM Progress Note CM Note CM Note Notes: This patient presents a difficult discharge planning scenario. Therapies and other providers have recommended SNF d/t patient's inability to care for himself at home (s/p new trach 08/05 and PEG 08/03) and need for 6 weeks of radiation. Most SNF's do not take patient's with trachs less than one month old. He does not qualify for LTAC d/t need for ongoing radiation. I spoke with tax appraiser Cande Pantoja who says that patient also suffers from fairly debilitating depression and anxiety. We ordered a psychiatry consult today for possible medical management. Patient is not able to identify a support system for himself, either. I sent referrals to local SNFs to gauge their interest; as suspected, patient's trach is an impediment. I have shared this case with CM Flash Ranging Crewmember Sana Szymanski, and we will work with the entire care team to help with discharge planning. Date Signed: 08/17/2017 02:06 PM Electronically Signed By:Cristal France RN [facility] Progress Note CM Note CM Note Notes: Met with pt today to discuss DC plan. Pt has a new traech (08/05) and needs another ~6 weeks of radiation, [facility] declined to take pt due to his need for radiation > 2 weeks. [facility] declined to take pt until he has had traech for 30 days (09/04). Sent referral to [facility] for 09/04. CM to follow Date Signed: 08/20/2017 02:59 PM Electronically Signed By:Taylor Henry LCSW [facility] CM Progress Note CM Note CM Note Notes: Chart reviewed. Met with patient to discuss d/c planning. He is aware that timeing is a discharge issue r/t his recent trach. He is pleasant and co-operative. He hope to be able to go to [facility] rehab in [place]. Has good insight into disease process and healing. CM to follow. Plan: [facility] Date Signed: 08/23/2017 04:47 PM Electronically Signed By:Emmie Silvestre RN [facility] CM Progress Note CM Note CM Note Notes: Dc plan continues to be for pt to DC to [facility] once his traceh has been in place 30 days (~09/04). Date Signed: 08/26/2017 04:42 PM Electronically Signed By:Taylor Henry LCSW [facility] CM Progress Note CM Note CM Note Notes: Chart reviewed. No change in discharge plan. Hpefully to [facility] about 09/04 if medically cleared for discharge at that time. CM to follow. Plan: TO [facility] rehab at [facility] Date Signed: 08/29/2017 10:20 AM Electronically Signed By:Emmie Silvestre RN [facility] CM Progress Note CM Note CM Note Notes: Chart reviewed. Discussed with Dr. Sánchez. Patient tolerating tube feedings. PT/OT. Daily radiation treatments. [facility] to evaluate him after tracheostomy in place for 30 days, about 09/04/17. CM to follow. Plan: SNF rehab when medically stable. Date Signed: 08/30/2017 12:27 PM Electronically Signed By:Emmie Silvestre RN [facility] CM Progress Note CM Note CM Note Notes: FABIANA made a referral to Kevyn Garcia and left Alicia a message to discuss case. [place] [facility] [place] [facility] cannot accept pt at this time due to his daily radiation need until 10/01/17. CM left a msg w/ adam Lazo and requested a call back to discuss case. FABIANA discussed case wJavier Hodo, learning manager. CM to follow. Plan: TBD Date Signed: 09/02/2017 02:29 PM Electronically Signed By:NATHAN Carey [facility] CM Progress Note CM Note CM Note Notes: Met with patient to review discharge plan of care. [facility] unable to accept him due to daily radiation needs, [facility] agreeable to accept patient. I have asked that Alicia call to discuss patient concerns regarding room privacy and concerns over tracheostomy care. CM to follow. Plan: To SNF. Date Signed: 09/03/2017 11:45 AM Electronically Signed By:Emmie Silvestre RN [facility] CM Progress Note CM Note CM Note Notes: Asked to see pt by KETTY Amor. Per Zuleyma, pt feels as though he is "being kicked out of the hospital." Spent approximately 45 minutes with pt. Attempted to provide reassurance to pt that he is not being kicked out and that CM is looking for an appropriate, safe discharge plan. Pt confused about why [facility] declined him. Pt also unhappy about prospect of going to [facility]. Per pt, liason from [facility] informed him "they only have 8 TV channels and all are in black and white." Pt refusing to go to a facility with 8 channels because he watches TV all day and states he "needs more channels to choose from." Pt also states he "does not want to pay anything out of pocket" and "must have a private room." CM explained placement process and encouraged pt to consider what areas he might be willing to reconsider, as his ideal placement may not be available. CM discsussed possibility of home care. Pt states he lives alone and has little support. He states he has limited use of his left arm and therefore, may have difficulty self-administering his tube feeds. The pt states he is also unaware when his trach dislodges. Pt with multiple complaints about not having a dedicated CM for his "challenging, complex case." Pt also frustrated by the "ever-changing nursing staff." Further support and reassurance provided. Call placed to Stefany at [facility]. Per Stefany, [facility] is unable to accept pt secondary to his Medicare part A. Due to Medicare part A, [facility] would have to assume all costs associated with transporting pt to radiation daily and all of his daily radiation fees; which is not something the facility can sustain. [facility] is also concerned about the fact the pt's trach has dislodged three times since placement. Call placed to [facility], spoke with Lorene. Per Lorene, [facility] is unable to accept pt for same reasons that [facility] cannot. Call placed to Alicia at [facility]. Per Alicia, the facility has more than 8 channels of TV - they have cable and full Wifi. In addition, Alicia said she would try to place pt in a "suite" which has a five foot wall and curtain the pt from another resident. Alicia explained if pt's radiation is billed as outpt, [facility] may not be able to accept pt as well. If radiation is billed as inpt, the facility can accept, assuming there are no further issues with the pt's trach. Alicia to re-eval the pt on Wednesday09/06/17 and re-evaluate insurance benefits. Update provided to KETTY Amor. Zuleyma to speak with Oncologist about whether the pt's radiation is inpt vs outpt. Update provided to Dr. Ngo. FABIANA will speak with pt about facility issues on Wednesday09/05/17 and will continue to follow. Current Discharge Plan: To be determined Date Signed: 09/04/2017 07:45 PM Electronically Signed By:Nohemi Phillips RN [facility] FABIANA Progress Note FABIANA Note FABIANA Note Notes: Chart reviewed. Discussed with Dr. Najera. Questions concerning remapping and possible removal ot tracheostomy. Radiation oncologist and ENT to see patient and review plan of care. Discussed possibility of patient self administering feedings to enable him to return home with [facility] services in place. He does have limited ROM in left hand. RN and OT to work with planning tube feeds and involving patient in care of g-tube. Also spoke with Alicia at [facility]. and she will look into patient's insurance coverage of transportation to and from radiation. CM to follow. Plan: TBD Date Signed: 09/07/2017 02:38 PM Electronically Signed By:Emmie Silvestre RN [facility] CM Progress Note CM Note CM Note Notes: Pt's traech removed today. [facility] is reconsidering accepting pt. They were sent updates. CM to follow. Date Signed: 09/09/2017 03:24 PM Electronically Signed By:Taylor Henry LCSW [facility] CM Progress Note CM Note CM Note Notes: Spoke with Angie at [facility]. They are still strongly considering taking pt but want to wait a few days to see how he does post traech removal. They requested that Case mgmt send updates every few days to include MD, RN and respiratoryprogress notes. CM will continue to follow. Date Signed: 09/10/2017 10:02 AM Electronically Signed By:Talyor Henry LCSW [facility] CM Progress Note CM Note CM Note Notes: Spoke with pt today about going to [facility] [place] after hearing from Onc Terence Castellon that he was interested in home with home care too. Pt stated that he is hoping to be ready to go home in a few weeks but understands he needs SNF at [place]. Pt asked CM to make sure he has pvt room at [place]. Also spoke with Angie at about transportation to radiation appts. They will set it up with [facility] but pt will be charged. Let pt know. Also let know that pt [place] [facility] [place] from . Date Signed: 09/10/2017 03:53 PM Electronically Signed By:Taylor Henry LCSW [facility] CM Progress Note CM Note CM Note Notes: Updated patient info, Therapy notes and RT notes sent to SNF's interested in admitted patient. Date Signed: 09/12/2017 12:06 PM Electronically Signed By:Edie More LCSW [facility] CM Progress Note CM Note CM Note Notes: Chart reviewed. Recent notes sent yesterday to [facility], Patient's tacheostomy removed 09/09. Able to maintain respiratory status and manage secretions. Stefany from [facility] able to accept and the patient wishes to go tomorrow after radiation therapy. He clearly understands that his transportation to and from his radiation treatment will be his financial responsibility at 12 dollars a day until October 01. CM to follow. Plan: DC to [facility] tomorrow after radiation. Date Signed: 09/13/2017 04:18 PM Electronically Signed By:Emmie Silvestre RN [facility] CM Progress Note CM Note CM Note Notes: Patient has been medically accepted to [facility]. He has been cleared for discharge per hospital medicine. Final orders via allscripts. Call placed to [facility] in [place] as patient has depression and has been seen by Kimi Nair in the past. Left 2 messages with Gaby regarding needs for appointment in place prior to discharge from this facility. Awaiting return call. Will fax reports r/t his behavioral health to [facility]. He will continue his daily radiation treatments and is agreeable to paying his own transportation fees. RN will call report to [facility]. CM available should other needs arise. Plan: To [facility]. Date Signed: 09/14/2017 11:48 AM Electronically Signed By:Emmie Silvestre RN [facility] CM Progress Note CM Note CM Note Notes: Spoke with [facility]. appointment made for 09/29/17 at 2 pm. Per Gaby at [facility] she will discuss with provider to see if earlier appointment may be available Patient ready for transfer to [facility] via Wheelchair van. CM available should other needs arise. Date Signed: 09/14/2017 02:27 PM Electronically Signed By:Emmie Silvestre RN Intervention Information Intervention Type:*IM-Signed Date of Service:09/14/2017 11:34 AM Patient Type:Inpatient Staff Member:Wandy Jacinto Hours: Discipline: Severity: Comment:
== END 2017-09-14 15:39 | DRG 11 ==
LOC: FIMAGING 09:13 → F2N 17:01 → F1N 08-09 17:46 → F2N 08-09 21:08 → F1N 08-12 08:03
PROVIDERS: ADMIT Student in an Organized Health Care Education/Training Program; ATTEND Student in an Organized Health Care Education/Training Program
DX: C76.0 Malignant neoplasm of head, face and neck (principal); J96.01 Acute respiratory failure with hypoxia; E43 Unspecified severe protein-calorie malnutrition; J18.9 Pneumonia, unspecified organism; Z68.1 Body mass index [BMI] 19.9 or less, adult; J95.03 Malfunction of tracheostomy stoma; J04.10 Acute tracheitis without obstruction; B96.1 Klebsiella pneumoniae [K. pneumoniae] as the cause of diseases classified elsewhere; K59.00 Constipation, unspecified; L89.152 Pressure ulcer of sacral region, stage 2; R13.10 Dysphagia, unspecified; F43.21 Adjustment disorder with depressed mood; B19.20 Unspecified viral hepatitis C without hepatic coma
CPT/HCPCS: 92523-GN; 92526-GN; 92610-GN; 92611-GN; 97110-GO; 97110-GP; 97112-GP; 97116-GP; 97162-GP; 97166-GO; 97530-GO; 97530-GP; 97535-GO; C1725; C1729; C1769; C1893; G8978-GP-CI; G8978-GP-CK; G8979-GP-CI; G8987-GO-CI; G8987-GO-CJ; G8988-GO-CH; G8988-GO-CI; G8996-GN-CL; G8996-GN-CM; G8996-GN-CN; G8997-GN-CI; G8997-GN-CJ; G8997-GN-CL; G8998-GN-CL; G9171-GN-CM; G9172-GN-CJ; J0690; J0692; J0696; J1100; J1335; J1610; J1650; J2250; J2310; J2370; J2405; J2704; J2780; J3010; Q9967

== ENCOUNTER → 2017-11-08 | Outpatient (CLI) | payer OTHER, MEDICARE | LOC: FIMAGING 10:47 | PROVIDERS: ATTEND Internal Medicine Hematology & Oncology | DX: R13.12 Dysphagia, oropharyngeal phase (principal); K22.5 Diverticulum of esophagus, acquired; Z85.810 Personal history of malignant neoplasm of tongue; Z93.0 Tracheostomy status | CPT/HCPCS: 74230; 92611; G8996; G8997; G8998 ==

== ENCOUNTER → 2017-12-12 | Outpatient (CLI) | payer OTHER, MEDICARE | LOC: FIMAGING 10:10 | PROVIDERS: ATTEND Physician Assistant Medical | DX: N40.1 Benign prostatic hyperplasia with lower urinary tract symptoms (principal); R35.1 Nocturia; R35.0 Frequency of micturition ==

== ENCOUNTER → 2018-06-01 | Outpatient (CLI) | payer OTHER, MEDICARE | LOC: FIMAGING 10:39 | PROVIDERS: ATTEND Internal Medicine | DX: R13.19 Other dysphagia (principal); Z85.9 Personal history of malignant neoplasm, unspecified; K22.5 Diverticulum of esophagus, acquired | CPT/HCPCS: 92611-GN ==

== ENCOUNTER 2018-06-16 07:33 | Inpatient (IN) | payer OTHER, MEDICARE ==
[2018-06-16] MEDS ORDERED: LR 1,000 ML IV ONE (07:45)
[2018-06-16 08:24] LABS: PLATELET COUNT 228 10^3/uL (150-400)
[2018-06-16] MEDS ORDERED: MIDAZOLAM 2 MG/2 ML VIAL ONE (08:39)
[2018-06-16] MEDS ORDERED: MIDAZOLAM 2 MG/2 ML VIAL IVP ONE (08:43)
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
[2018-06-16] MEDS ORDERED: fentaNYL 100 MCG/2 ML INJ ONE (08:47)
[2018-06-16] MEDS ORDERED: PROPOFOL/EMULSION 500 MG/50 ML BOTTLE IV ONE (08:51)
[2018-06-16] MEDS ORDERED: DEXAMETHASONE 10 MG/ML VIAL IVP ONE (09:00)
[2018-06-16] MEDS ORDERED: ceFAZolin 2 GM/DEXTROSE 100 ML IV ONE (09:00)
--- NOTE | 2018-06-16 09:00 | PDHPUP ---
History & Physical Update H&P update statement: This history and physical update is based on an assessment of the patient which was completed after admission or registration (within 24 hours), but prior to the surgery/procedure. H&P update: H&P reviewed & patient examined, no change in patient's condition since H&P completed
[2018-06-16] MEDS ORDERED: fentaNYL 100 MCG/2 ML INJ IVP PRN (09:39)
[2018-06-16] MEDS ORDERED: ONDANSETRON 4 MG/2 ML VIAL IVP PRN (09:39)
[2018-06-16] MEDS ORDERED: NS 500 ML IV PRN (09:39)
[2018-06-16] MEDS ORDERED: LR 500 ML IV PRN (09:39)
[2018-06-16] MEDS ORDERED: NALOXONE HCL 0.4 MG/ML INJ IVP PRN (09:39)
[2018-06-16] MEDS ORDERED: ALBUTEROL 3 ML DEYVIAL IH PRN (09:39)
[2018-06-16] MEDS ORDERED: DEXAMETHASONE 4 MG/ML VIAL IVP PRN (09:39)
[2018-06-16] MEDS ORDERED: HYDROmorphONE/DILAUDID 2 MG/ML INJ IVP PRN (09:39)
[2018-06-16] MEDS ORDERED: LIDO/EPI 1% **Not for Epidural 20 ML MDV ONE (09:51)
[2018-06-16] MEDS ORDERED: PROPOFOL 200 MG/20 ML VIAL ONE (09:59)
[2018-06-16] MEDS ORDERED: BACITRACIN ZINC 0.5 OZ OINTTUBE TP ONE (10:04)
[2018-06-16] MEDS ORDERED: SUGAMMADEX SODIUM 200 MG/2 ML VIAL IVP ONE (11:13)
--- NOTE | 2018-06-16 11:23 | POSTOPPROG ---
Post Op Note Date of Operation: 06/16/18 Surgeon: Aubree Red [employer] Workers: Casey Anesthesiologist: Rajat Anesthesia: GET(General Endotracheal) Pre-op Diagnosis: zenker's diverticulum Post-op Diagnosis: same Indication: dysphagia Procedure: attempted endoscopic division of zenker's trnasformed to external removal Findings: zenker's Inf/Abcess present in the surg proc area at time of surgery?: No Depth: Deep Incisional (Fascial) EBL: 50-100 Total fluids administered: 900 Complications: esophageal perforation [id number] external removal of zenker's with division of cricopharyngeus Drains: Carlee
[2018-06-16] MEDS: D5W 1/2 NS W/ 20 KCl/L 1,000 ML IV SCH ×2 (13:41→20:38)
--- NOTE | 2018-06-16 14:39 | POSTANESTH ---
Post Anesthetic Evaluation Cardiovascular Status: Normal, Stable Respiratory Status: Normal, Stable Level of Consciousness/Mental Status: Can Participate in Eval Pain Control: Adequate, Prn Tx Ordered Nausea/Vomiting Control: Adequate, Prn Tx Ordered Complications Possibly Related to Anesthesia: None Noted
[2018-06-16] MEDS: AMPICILLIN/SULBACTAM 3 GM in NS 100 ML IV SCH ×2 (14:45→20:38)
[2018-06-16] MEDS ORDERED: PROMETHAZINE HCL 25 MG/ML INJ IVP PRN (16:04)
--- NOTE | 2018-06-16 16:23 | GOP ---
[f rep st] OPERATIVE REPORT DATE OF OPERATION: 06/16/2018 SURGEON: Ender Red MD MEDICAL AFFAIRS LEADER: Dr. Carlos Peña ANESTHESIA: General endotracheal. PREOPERATIVE DIAGNOSIS: Zenker diverticulum. POSTOPERATIVE DIAGNOSIS: Zenker diverticulum. PROCEDURE PERFORMED: Procedure planned was endoscopic repair of Zenker diverticulum. Procedure performed was initial attempted endoscopic repair of Zenker diverticulum with subsequent esophageal perforation and open repair of Zenker's diverticulum with stapling of base of diverticula and cricopharyngeal myotomy. FINDINGS: ESTIMATED BLOOD LOSS: 30 mL. DESCRIPTION OF PROCEDURE: Patient was placed on the operating table in supine position. After induction of adequate general endotracheal anesthesia, sterile draping was performed. A tooth guard was placed on the upper incisors to protect them. The Weerda laryngoscope was advanced into the oral cavity into the oropharynx. The scope was advanced further. Thorough visualization of the hypopharyngeal outpouching was performed. The esophageal orifice was very, very difficult to identify. As the scope was advanced further, it was noted that apparent fat was present consistent with esophageal perforation. Slight bleeding was noted from the fat, which was clearly not the esophageal mucosa. At this point, it was felt to optimal to proceed with left open neck exploration with removal of Zenker diverticulum and a cricopharyngeal myotomy. An incision was then planned and created in a horizontal skin crease midway between the angle of the mandible and the clavicle. The incision was approximately 5 cm in length. The incision was carried through the subcutaneous tissues and through the platysma muscle. Flaps were elevated superiorly and inferiorly in the subplatysmal plane. The sternocleidomastoid muscle was retracted posteriorly as dissection proceeded further deeply. The prevertebral fascia was encountered. The esophagus was reflected anterolaterally. During this dissection, the esophageal perforation, which was at the distal end of the Zenker diverticulum was identified. Further dissection of the diverticular sac was performed. Once this had been completed , the endoscopic stapler was brought in and the hypopharyngeal sac was partially transected and sealed tightly utilizing the endoscopic stapler. At this point, attention was directed to the cricopharyngeal myotomy. The cricopharyngeus muscle was identified and then was sharply divided. After all cricopharyngeus fibers had been sharply divided, the neck wound was irrigated clear. The Owings drain was placed deeply into the wound. A deep layer closure of the wound utilizing 3-0 Vicryl sutures was performed. The skin was closed with running locked 5-0 Prolene sutures and the Owings drain was sutured in place with the 5-0 Prolene suture as well. A sterile pressure dressing was applied. The patient was then awakened, transferred to postanesthesia recovery in stable condition. FLUID REPLACEMENT: 1000 mL. COMPLICATIONS: Esophageal perforation during attempted endoscopic repair of Zenker diverticulum repaired by an endoscopic stapling of lateral aspect of the diverticulum via open neck approach with cricopharyngeal myotomy. /[id number]/MODL MTDD
--- NOTE | 2018-06-16 17:36 | SOAPPROG ---
SOAP Progress Note Assessment/Plan: Assessment: Pt doing well s/p open repair of esophageal perforation and Zenker's diverticulum. Mild pain, nausea controlled. Plan: Will do Gastrografin swallow study in the morning to look for esophageal perforation. If no perforation, will plan to d/c home tomorrow Pt to stay NPO until after swallow study 06/16/18 17:27 06/16/18 17:36 Subjective: Pt reports mild pain and sore throat. Nausea is currently controlled. Objective: Vital Signs Temp Pulse Resp BP Pulse Ox 36.7 C 87 14 137/74 H 98 06/16/18 16:30 06/16/18 16:30 06/16/18 16:30 06/16/18 16:30 06/16/18 16:30 Laboratory Results 06/16/18 07:45 06/16/18 07:45 06/15/18 06/16/18 06/17/18 05:59 05:59 05:59 Intake Total 1000 Output Total 75 Balance 925 Pt in NAD, afebrile, resting comfortably in bed. - Pending Discharge Pending Discharge Within 24 Hours: Yes Pending Discharge Date: 06/17/18 Pending Discharge Time: 11:00 ICD10 Worksheet Patient Problems: Problems Problem Status Onset Dehydration Acute Failure to thrive in adult Acute Head injury Acute Multiple falls Acute Odynophagia Acute Pelvic contusion Acute Pneumonia Acute Rhabdomyolysis Acute Throat cancer Acute
[2018-06-17] MEDS ORDERED: IOPAMIDOL (ISOVUE-370) 150 ML BTL IV ONE (08:50)
--- NOTE | 2018-06-17 10:20 | ASMTCMCOM ---
CM Note CM Note Notes: Reviewed chart. Pt admitted for planned surgery. He is s/p divericula Zenker's endo stapling for dysphagia and Zenker's diverticulum. 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 Pt is single and lives alone. His sister Zeina Sanchez is his emergency contact. The pt has had [facility] in the past. Discharge needs remain unclear; there are no therapy evals at this time. CM will continue to follow for any potential needs. Discharge Plan: To be determined Date Signed: 06/17/2018 10:18 AM Electronically Signed By:Nohemi Phillips RN
--- NOTE | 2018-06-17 11:46 | PDDCSUM ---
Discharge Summary Discharge Summary: Case reviewed with Dr. Red. Pt doing well s/p open repair of esophageal perforation and zenkers diverticulum. Mild pain with swallowing. No nausea. Had swallow study showing no esophageal perforation. Noted aspiration on today's exam and previous swallow study from 06/01/18. Has seen speech therapy in the past. Pt has concerns regarding getting a transportation home. Gave pt hand written script for outpt abx clarithromycin liquid. Pt to d/c home after speech consult on clear and full liquid diet until Wednesday. KETTY Laura to order speech. Then advance diet as tolerated. Will see back in our office for f/ u next week.
--- NOTE | 2018-06-17 16:09 | SOAPPROG ---
SOAP Progress Note Assessment/Plan: Assessment: Pt doing well s/p open repair of esophageal perforation and Zenker's diverticulum. Mild pain, nausea controlled. Plan: Will do Gastrografin swallow study in the morning to look for esophageal perforation. If no perforation, will plan to d/c home tomorrow Pt to stay NPO until after swallow study 06/16/18 17:27 06/16/18 17:36 Objective: Vital Signs Temp Pulse Resp BP Pulse Ox 39.1 C H 94 18 139/78 H 95 06/17/18 15:38 06/17/18 15:23 06/17/18 15:23 06/17/18 15:23 06/17/18 15:23 Laboratory Results 06/16/18 07:45 06/16/18 07:45 06/16/18 06/17/18 06/18/18 05:59 05:59 05:59 Intake Total 2325 Output Total 175 Balance 2150 ICD10 Worksheet Patient Problems: Problems Problem Status Onset Dehydration Acute Failure to thrive in adult Acute Head injury Acute Multiple falls Acute Odynophagia Acute Pelvic contusion Acute Pneumonia Acute Rhabdomyolysis Acute Throat cancer Acute
[2018-06-17] MEDS ORDERED: ACETAMINOPHEN 500 MG TAB PO PRN (16:16)
[2018-06-17] MEDS ORDERED: ACETAMINOPHEN 325 MG TAB PO PRN (17:15)
--- NOTE | 2018-06-17 17:20 | PDHOSCONS ---
History and Physical - Chief Complaint fever - History of Present Illness 73 yo male with h/o Zenker's diverticulum who underwent surgical repair yesterday, complicated by esophageal perforation, developed fever to 39.4 today. Medicine consult was requested to evaluate for source of fever. He has history of aspiration and a video swallow study today showed aspiration with thin liquids and moderate dysphagia. Upon arrival to the bedside, pt is sitting up. He feels uncomfortable from his recent surgery, but denies pain, swelling or difficulty swallowing. He denies CP, SOB or pleuritic symptoms. He has audible secretions in his posterior pharynx, but feels able to manage his secretions. He is not taking much oral intake, on a wired jaw diet. He has a bit of a cough. He denies N/V/D or abdominal pain. No urinary symptoms. A CXR showed a ALEX nodule, which was not present on prior imaging. History Information - Allergies/Home Medication List Allergies/Adverse Reactions: Penicillins Allergy (Verified 12/04/17 14:22) Rash Home Medications: ALPRAZolam [Xanax 1 MG (*)] 2 mg TUBE HS 06/10/18 [Last Taken 06/15/18] I have personally reviewed and updated: family history, medical history, social history, surgical history - Past Medical History Additional medical history: Zenker's diverticulum, s/p repair, complicated by esophageal perf. 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 H/O Waldenstroms macroglobulinemia. H/ O Hep C. Dysphagia - Surgical History Reports: no pertinent surgical hx Additional surgical history: Repair of zenker's diverticulum and esophageal perforation 06/16/2018. H/O tracheostomy. Peg tube, since removed - Family History Positive for: non-pertinent - Social History Smoking Status: Never smoked Alcohol Use: None Drug Use: None Additional social history: Lives independently Review of Systems Review of Systems: ROS: 10pt was reviewed & negative except for what was stated in HPI & below Physical Exam Physical Exam: Temp Pulse Resp BP Pulse Ox 39.1 C H 94 18 139/78 H 95 06/17/18 15:38 06/17/18 15:23 06/17/18 15:23 06/17/18 15:23 06/17/18 15:23 O2 (L/minute) 1 Constitutional: no apparent distress Eyes: PERRL Ears, Nose, Mouth, Throat: moist mucous membranes, other (copious secretions, but protecting airway. Neck incision c/d/i, minimal surrounding erythema) Cardiovascular: regular rate and rhythym Respiratory: no respiratory distress, clear to auscultation Gastrointestinal: normoactive bowel sounds, soft, non-tender abdomen Skin: warm Musculoskeletal: full muscle strength Neurologic: AAOx3 Psychiatric: interacting appropriately Lab Data & Imaging Review 06/16/18 07:45 06/16/18 07:45 WBC 4.42 10^3/uL (3.80-9.50) 06/16/18 07:45 RBC 4.50 10^6/uL (4.40-6.38) 06/16/18 07:45 Hgb 13.4 g/dL (13.7-17.5) L 06/16/18 07:45 Hct 40.4 % (40.0-51.0) 06/16/18 07:45 MCV 89.8 fL (81.5-99.8) 06/16/18 07:45 MCH 29.8 pg (27.9-34.1) 06/16/18 07:45 MCHC 33.2 g/dL (32.4-36.7) 06/16/18 07:45 RDW 13.4 % (11.5-15.2) 06/16/18 07:45 Plt Count 228 10^3/uL (150-400) 06/16/18 07:45 MPV 8.6 fL (8.7-11.7) L 06/16/18 07:45 Neut % (Auto) 54.9 % (39.3-74.2) 06/16/18 07:45 Lymph % (Auto) 26.7 % (15.0-45.0) 06/16/18 07:45 [place] % (Auto) 14.9 % (4.5-13.0) H 06/16/18 07:45 Eos % (Auto) 2.5 % (0.6-7.6) 06/16/18 07:45 Baso % (Auto) 0.5 % (0.3-1.7) 06/16/18 07:45 Nucleat RBC Rel Count 0.0 % (0.0-0.2) 06/16/18 07:45 Absolute Neuts (auto) 2.43 10^3/uL (1.70-6.50) 06/16/18 07:45 Absolute Lymphs (auto) 1.18 10^3/uL (1.00-3.00) 06/16/18 07:45 Absolute Monos (auto) 0.66 10^3/uL (0.30-0.80) 06/16/18 07:45 Absolute Eos (auto) 0.11 10^3/uL (0.03-0.40) 06/16/18 07:45 Absolute Basos (auto) 0.02 10^3/uL (0.02-0.10) 06/16/18 07:45 Absolute Nucleated RBC 0.00 10^3/uL (0-0.01) 06/16/18 07:45 Immature Gran % 0.5 % (0.0-1.1) 06/16/18 07:45 Immature Gran # 0.02 10^3/uL (0.00-0.10) 06/16/18 07:45 Sodium 139 mEq/L (135-145) 06/16/18 07:45 Potassium 4.2 mEq/L (3.5-5.2) 06/16/18 07:45 Chloride 105 mEq/L (97-110) 06/16/18 07:45 Carbon Dioxide 27 mEq/l (22-31) 06/16/18 07:45 Anion Gap 7 mEq/L (6-14) 06/16/18 07:45 BUN 17 mg/dL (7-23) 06/16/18 07:45 Creatinine 1.1 mg/dL (0.7-1.3) 06/16/18 07:45 Estimated GFR > 60 06/16/18 07:45 Glucose 82 mg/dL (70-100) 06/16/18 07:45 Calcium 8.9 mg/dL (8.5-10.4) 06/16/18 07:45 Total Bilirubin 0.8 mg/dL (0.1-1.4) 06/16/18 07:45 AST 68 IU/L (17-59) H 06/16/18 07:45 ALT 58 IU/L (21-72) 06/16/18 07:45 Alkaline Phosphatase 60 IU/L (38-126) 06/16/18 07:45 Total Protein 7.2 g/dL (6.3-8.2) 06/16/18 07:45 Albumin 3.5 g/dL (3.5-5.0) 06/16/18 07:45 Visualized and Interpreted Chest x-ray results: Yes Chest X-Ray results: no infiltrate, other (ALEX nodule vs early infiltrate) Assessment & Plan Assessment: Fever - concern for aspiration pna given ALEX findings on CXR and obvious aspiration hx. Doubt incision infection, though continue to monitor closely. -check cbc, lactate, BCx's, PCT -will cover with Ceftriaxone/Flagyl for now, noting pcn allergy -repeat 2 view CXR in am -consider neck CT S/P repair of Zenker's diverticulum - POD #1, no obvious infectious complications -ENT following H/O SCC tongue - s/p chemo, radiation. Required peg/trach, since removed. H/O Hep C Full code Dispo - inpt. Medicine will continue to follow during this hospitalization.
[2018-06-17] MEDS: NS 1,000 ML IV SCH (17:31)
[2018-06-17 17:53] LABS: PLATELET COUNT 210 10^3/uL (150-400)
[2018-06-17] MEDS: traZODone 50 MG TAB PO PRN (20:41)
[2018-06-18] MEDS ORDERED: MAG HYDROX/AL HYDROX/SIMETH 30 ML UDCUP PO PRN (05:57)
[2018-06-18] MEDS ORDERED: CALCIUM CARBONATE 500 MG CHEWABLE TAB PO PRN (07:25)
--- NOTE | 2018-06-18 10:15 | SOAPPROG ---
SOAP Progress Note Assessment/Plan: Assessment: Pt s/p open repair of esophageal perforation and Zenker's diverticulum. No pain , no nausea this am. Pt had fever of 102.4F yesterday afternoon. No fever this morning. Surgical incision is c/d/i. No swelling in neck, no drainage, no erythema. Carlee drain removed 06/17/18 and dressing changed. Pt just got out of shower, no dressing in place. Soft dressing placed with some bacitracin over incision. Plan: Pt will likely stay overnight and, if no fever and stable in am, will d/c. F/u in ENT office early next week. 06/16/18 17:27 06/16/18 17:36 06/18/18 10:11 06/18/18 10:21 Subjective: Pt reports no pain, no nausea. States swallowing is difficult. Eating currently , thickened nectar. Objective: Vital Signs Temp Pulse Resp BP Pulse Ox 36.8 C 68 16 137/77 H 97 06/18/18 07:07 06/18/18 07:07 06/18/18 07:07 06/18/18 07:07 06/18/18 07:07 Microbiology 06/17/18 17:30 Respiratory Panel (PCR) - Final Nasal, Sinus - [place] Viral Transport No Organism Detected By Pcr Laboratory Results 06/18/18 08:47 06/16/18 07:45 06/17/18 06/18/18 06/19/18 05:59 05:59 06:59 Intake Total 2325 Output Total 175 Balance 2150 Pt in NAD resting comfortably in chair eating. Afebrile, VSS. Incision is c/d/ i. No erythema or swelling. No dressing in place currently. Applied bacitracin over incision, placed with soft wrap dressing. - Pending Discharge Pending Discharge Within 24 Hours: Yes Pending Discharge Date: 06/19/18 Pending Discharge Time: 11:00 ICD10 Worksheet Patient Problems: Problems Problem Status Onset Dehydration Acute Failure to thrive in adult Acute Head injury Acute Multiple falls Acute Odynophagia Acute Pelvic contusion Acute Pneumonia Acute Rhabdomyolysis Acute Throat cancer Acute
[2018-06-18] MEDS: NS 1,000 ML IV SCH (11:18)
[2018-06-18 11:33] LABS: PLATELET COUNT 155 10^3/uL (150-400)
[2018-06-18] MEDS ORDERED: POLYETHYLENE GLYCOL 3350 17 GM PKT PO PRN (13:50)
--- NOTE | 2018-06-18 14:00 | HOSPPROG ---
Hospitalist Progress Note Assessment/Plan: Fever - Has not recurred. 2 view CXR this am pers reviewed/interp- b/l pulmonary nodules, ?infectious vs metastatic. No sepsis, nl lactate, wbc's normalized. -cont ceftriaxone/flagyl, likely change to po augmentin at d/c -chest CT as below Pulmonary nodules - new since 08/2017. Could be infectious, but some concern for metastatic lesions with h/o SCC -CT chest today for further evaluation S/P repair of Zenker's diverticulum - POD #2, no obvious infectious complications -ENT following H/O SCC tongue - s/p chemo, radiation. Required peg/trach, since removed. H/O Hep C Diet - nectar thick liquids, asked speech to consumer credit counselor pt on safe options Full code Dispo - inpt. Medicine will continue to follow during this hospitalization. Possible dc in am if remains stable. Subjective: Pt feels a little better today. Less secretions. No more fevers/ chills. No CP, SOB, not much cough. Struggling with dietary restrictions, has questions about what is safe to eat. Objective: Vital Signs Temp Pulse Resp BP Pulse Ox 37.2 C 71 18 122/64 H 98 06/18/18 11:36 06/18/18 11:36 06/18/18 11:36 06/18/18 11:36 06/18/18 11:36 Microbiology 06/17/18 17:30 Respiratory Panel (PCR) - Final Nasal, Sinus - [place] Viral Transport No Organism Detected By Pcr Laboratory Results 06/18/18 11:02 06/16/18 07:45 06/17/18 06/18/18 06/19/18 05:59 05:59 06:59 Intake Total 2325 Output Total 175 Balance 2150 - Physical Exam Constitutional: no apparent distress Eyes: PERRL Ears, Nose, Mouth, Throat: moist mucous membranes Cardiovascular: regular rate and rhythym, no murmur, rub, or gallop Respiratory: no respiratory distress, clear to auscultation Gastrointestinal: normoactive bowel sounds, soft, non-tender abdomen Skin: warm Musculoskeletal: full muscle strength Neurologic: AAOx3 Psychiatric: interacting appropriately ICD10 Worksheet Patient Problems: Problems Problem Status Onset Dehydration Acute Failure to thrive in adult Acute Head injury Acute Multiple falls Acute Odynophagia Acute Pelvic contusion Acute Pneumonia Acute Rhabdomyolysis Acute Throat cancer Acute
[2018-06-18] MEDS ORDERED: IOPAMIDOL (ISOVUE-300) 100 ML BTL ONE (20:15)
[2018-06-18] MEDS ORDERED: ALPRAZolam 1 MG TAB TUBE SCH (21:00)
[2018-06-18] MEDS ORDERED: ALPRAZolam 1 MG TAB PO SCH (21:00)
[2018-06-19] MEDS: traZODone 50 MG TAB PO PRN (00:35)
[2018-06-19] MEDS: NS 1,000 ML IV SCH (04:37)
--- NOTE | 2018-06-19 07:14 | HOSPPROG ---
Hospitalist Progress Note Assessment/Plan: Fever - Has not recurred. CXR with b/l pulmonary nodules, ?infectious vs malignant. -complete short course atbx, transition to po moxifloxacin, Rx provided at dc Pulmonary nodules - new since 08/2017. Could be infectious, but some concern for metastatic lesions with h/o SCC. Discussed with pt. -outpt PET CT and f/u with his primary oncologist this week recommended S/P repair of Zenker's diverticulum - POD #3, no obvious infectious complications -ENT following H/O SCC tongue - s/p chemo, radiation. Required peg/trach, since removed. -as above, outpt onc f/u for PET CT and further evaluation of lung nodules H/O Hep C Diet - nectar thick liquids, asked speech to grief counsellor pt on safe options for dc Full code Dispo - inpt. Possible dc today, per ENT Subjective: Pt doing ok. No more fevers. Pain controlled. No cough, CP or SOB. He has been d/c'd by ENT service. Will have home health care Objective: Vital Signs Temp Pulse Resp BP Pulse Ox 36.6 C 63 18 152/86 H 96 06/19/18 03:25 06/19/18 03:25 06/19/18 03:25 06/19/18 03:25 06/19/18 03:25 Laboratory Results 06/18/18 11:02 06/16/18 07:45 06/18/18 06/19/18 06/20/18 04:59 05:59 05:59 Intake Total Balance - Physical Exam Constitutional: no apparent distress Eyes: PERRL Ears, Nose, Mouth, Throat: moist mucous membranes Cardiovascular: regular rate and rhythym Respiratory: no respiratory distress, clear to auscultation Gastrointestinal: normoactive bowel sounds, soft, non-tender abdomen Skin: warm Musculoskeletal: full muscle strength Neurologic: AAOx3 Psychiatric: interacting appropriately ICD10 Worksheet Patient Problems: Problems Problem Status Onset Zenker diverticulum Acute Dehydration Acute Failure to thrive in adult Acute Head injury Acute Multiple falls Acute Odynophagia Acute Pelvic contusion Acute Pneumonia Acute Rhabdomyolysis Acute Throat cancer Acute
[2018-06-19] MEDS ORDERED: MOXIFLOXACIN 400 MG TAB PO SCH (09:00)
--- NOTE | 2018-06-19 10:48 | PDDCSUM ---
Discharge Summary Discharge Summary: A/P Pt s/p open repair of esophageal perforation and Zenker's diverticulum. Ok to d/ c home. Pt to remain on thickened nectar diet per speech. Should f/u with speech as OP. Pt reports no pain, no nausea. Surgical dressing in place. Will remove tomorrow when pt f/u in [place] office with Dr Red. Also discussed incidental findings of nodules on cxr. Pt will f/u with PCP to get w/u of lung nodules. S: Pt reports no pain/nausea, tolerating PO, continued dysphagia, on thickened nectar diet. O: VSS, NAD, afebrile, sitting up in bed watching TV, surgical dressing in place around neck.
[2018-06-19 11:32] VITALS: BP 122/74
--- NOTE | 2018-06-19 12:44 | PDMN ---
Medical Necessity Medical necessity: [facility] S445 Esophageal Diverticulectomy, Endoscopic, A-1 day: 73 yo s/p surgical repair for Zenker's diverticulum changed to IP status for post op complication of esophageal perforation. Developed fever 39.4. Video swallow study completed and shows aspiration w/ thin liquids and mod dysphagia. Change to IP status 06/18/18@1303 per MD as pt requires additional MN for ongoing monitoring and tx of post op complications/possible infection. Remains on IVF, IV antibx.
--- NOTE | 2018-06-19 14:45 | ASMTDCNOTE ---
Case Management Discharge Discharge Order Complete? Answers: Yes Patient to Obtain Answers: Independently Medications Transportation Arranged Answers: Other Notes: self Faxed Final Orders Answers: Yes Agency/Facility Transfer Answers: Yes Report Printed & Faxed to Receiving Agency Discharge Comments Notes: CM met with patient prior to discharge, he states he states he is comfortable driving himself with his car parked in the hospital lot. The patient states he will follow up with the Oncologist. 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 CUSTOM BIKE BUILDER Therapist presented to discuss concerns with patient and offered education around mixing thickener. CM explained and delivered IM and ARORA, patient signed for receipt, CM placed in back of chart. Plan: Home with [facility]. Date Signed: 06/19/2018 02:44 PM Electronically Signed By:Janet Hess
--- NOTE | 2018-06-19 14:51 | ASDISCHSUM ---
Discharge Information Plan Status:Home with Home Health Medically Cleared to Leave:06/18/2018 Discharge Date:06/19/2018 01:32 PM D/C Disposition:Home Health Service [facility] D/C Disposition:Home, Routine, Self-Care Projected Discharge Date:06/19/2018 11:00 AM Transportation at D/C:Self Discharge Delay Reason: Follow-Up Date:06/20/2018 Discharge Slot:2 - 12:01 pm - 18:00 pm Final Diagnosis:esophageal perforation and Zenker's diverticulum Placement Information Referral Type:*Home Health Care Services Referral ID:[id number] Provider Name:[facility] Address 1:[address] Address 2: City:[place] Selection Factors: State:[place] Patient Contact Information Contact Name:ANDREA Relationship:Sister Address:[address] City:[place] Alternate Phone: State/Zip Code:[place] [address] Email: Financial Information Financial Class:Medicare Primary Plan Desc:MEDICARE OUTPATIENT Primary Plan Number:[id number] Secondary Plan Desc:[employer]/MDR SUPPLEMENT Secondary Plan Number:[id number] Assessment Information [facility] CM Progress Note CM Note CM Note Notes: Reviewed chart. Pt admitted for planned surgery. He is s/p divericula Zenker's endo stapling for dysphagia and Zenker's diverticulum. 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 Pt is single and lives alone. His sister Zeina Sanchez is his emergency contact. The pt has had [facility] in the past. Discharge needs remain unclear; there are no therapy evals at this time. CM will continue to follow for any potential needs. Discharge Plan: To be determined Date Signed: 06/17/2018 10:18 AM Electronically Signed By:Nohemi Phillips RN Case Management Discharge Plan Note Case Management Discharge Discharge Order Complete? Answers: Yes Patient to Obtain Answers: Independently Medications Transportation Arranged Answers: Other Notes: self Faxed Final Orders Answers: Yes Agency/Facility Transfer Answers: Yes Report Printed & Faxed to Receiving Agency Discharge Comments Notes: CM met with patient prior to discharge, he states he states he is comfortable driving himself with his car parked in the hospital lot. The patient states he will follow up with the Oncologist. 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 PASSENGER CAR UPHOLSTERER APPRENTICE Therapist presented to discuss concerns with patient and offered education around mixing thickener. CM explained and delivered IM and ARORA, patient signed for receipt, CM placed in back of chart. Plan: Home with [facility]. Date Signed: 06/19/2018 02:44 PM Electronically Signed By:Janet Hess Intervention Information Intervention Type:*IM-Signed Date of Service:06/19/2018 02:44 PM Patient Type:Inpatient Staff Member:Janet Hess Hours: Discipline: Severity: Comment:CM explained and delivered IM, signed form placed in back of chart. Intervention Type:*ARORA-Signed Date of Service:06/19/2018 02:45 PM Patient Type:Inpatient Staff Member:Janet Hess Hours: Discipline: Severity: Comment:CM explained and delivered ariela ARORA d form placed in back of chart.
--- NOTE | 2018-06-22 08:44 | CPEKG ---
Test Reason : OPEN Blood Pressure : / mmHG Vent. Rate : 071 BPM Atrial Rate : 070 BPM P-R Int : 183 ms QRS Dur : 133 ms QT Int : 422 ms P-R-T Axes : 079 -89 029 degrees QTc Int : 459 ms Sinus rhythm RBBB and LAFB Similar ECG changes were noted on prior ECG Confirmed by Mario Pryor ([id number]) on 06/22/2018 8:44:40 AM Referred By: Aubree Red Confirmed By:Mario Pryor
== END 2018-06-19 13:32 | disposition home or self-care (01) | DRG 909 ==
LOC: F3E 07:33 → OBSVTOIN 06-18 13:03
PROVIDERS: ADMIT Otolaryngology; ATTEND Otolaryngology
DX: K91.71 Accidental puncture and laceration of a digestive system organ or structure during a digestive system procedure (principal); K22.5 Diverticulum of esophagus, acquired; R91.1 Solitary pulmonary nodule; Z85.810 Personal history of malignant neoplasm of tongue; Z92.3 Personal history of irradiation; Z86.19 Personal history of other infectious and parasitic diseases; Z53.39 Other specified procedure converted to open procedure
CPT/HCPCS: 92526-GN; 92611-GN; 97161-GP; 97165-GO; J0295; J0696; J2250; J2704; J3010; Q9967

== ENCOUNTER 2018-07-04 09:57 | Day surgery (SDC) | payer OTHER, MEDICARE ==
[2018-07-04] MEDS ORDERED: NALOXONE HCL 0.4 MG/ML INJ IVP PRN (10:06)
[2018-07-04] MEDS ORDERED: MIDAZOLAM 2 MG/2 ML VIAL IVP PRN (10:06)
[2018-07-04] MEDS ORDERED: fentaNYL 100 MCG/2 ML INJ IVP PRN (10:06)
[2018-07-04] MEDS ORDERED: FLUMAZENIL 0.5 MG/5 ML MDV IVP PRN (10:06)
[2018-07-04] MEDS ORDERED: NS 1,000 ML IV SCH (10:15)
[2018-07-04 10:56] LABS: INR 1.02 (0.83-1.16)
[2018-07-04] MEDS ORDERED: LIDOCAINE 1% 300 MG/30 ML SDV ONE (11:17)
[2018-07-04] MEDS ORDERED: FLUMAZENIL 0.5 MG/5 ML MDV IVP ONE (11:22)
[2018-07-04] MEDS ORDERED: MIDAZOLAM 2 MG/2 ML VIAL ONE (11:22)
[2018-07-04] MEDS ORDERED: NALOXONE HCL 0.4 MG/ML INJ ONE (11:22)
[2018-07-04] MEDS ORDERED: fentaNYL 100 MCG/2 ML INJ ONE (11:23)
[2018-07-04 15:41] VITALS: BP 129/80
== END 2018-07-04 16:19 | disposition home or self-care (01) ==
LOC: FIMAGING 09:57
PROVIDERS: ATTEND Otolaryngology
PROC: 0BBF4ZX Excision of Right Lower Lung Lobe, Percutaneous Endoscopic Approach, Diagnostic (ICD-10-PCS; principal; 2018-07-04 12:30)
DX: C34.31 Malignant neoplasm of lower lobe, right bronchus or lung (principal)
CPT/HCPCS: J2250; J2310; J3010

== ENCOUNTER 2018-07-30 13:31 | Inpatient (IN) | payer OTHER, MEDICARE ==
[2018-07-30] MEDS ORDERED: NS 1,000 ML IV ONE (14:07)
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
[2018-07-30 14:46] LABS: PLATELET COUNT 111 10^3/uL (150-400)
[2018-07-30] MEDS ORDERED: ONDANSETRON 4 MG/2 ML VIAL IVP PRN (15:18)
[2018-07-30] MEDS ORDERED: ACETAMINOPHEN 325 MG TAB PO PRN (15:18)
[2018-07-30] MEDS ORDERED: PROMETHAZINE HCL 25 MG/ML INJ IVP PRN (15:18)
[2018-07-30] MEDS ORDERED: ONDANSETRON DISINTEGRATING 4 MG TAB PO PRN (15:18)
--- NOTE | 2018-07-30 15:31 | PDGENHP ---
History and Physical - Chief Complaint diarrhea, weak, dehydrated - History of Present Illness 73 yo male with h/o metastatic SCC presents to ED with diarrhea, weakness and dehydration. He is followed by Dr. Jose Garcia at [facility] and received 2 L NS in the clinic yesterday. He reportedly was struggling with constipation so started taking Miralax daily. Then he developed diarrhea. He says he has stooled himself and cannot manage this at home. No fevers. No abdominal pain. He reports little oral intake. Despite 2 L NS yesterday, he continues to feel weak and dehydrated. No cough, CP or SOB. No urinary symptoms. He denies recent atbx or travel. No blood in the stool. In the ED, he received 1 L NS. Pt is admitted for volume depletion and further w/u of diarrhea. History Information - Allergies/Home Medication List Allergies/Adverse Reactions: Penicillins Allergy (Verified 12/04/17 14:22) Rash Home Medications: ALPRAZolam [Xanax 1 MG (*)] 2 mg TUBE HS 06/10/18 [Last Taken 07/04/18] I have personally reviewed and updated: family history, medical history, social history, surgical history - Past Medical History Additional medical history: Zenker's diverticulum, s/p repair, complicated by esophageal perf. 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 Distant H/O Waldenstroms macroglobulinemia and GI lymphoma. H/O Hep C. Dysphagia - Surgical History Additional surgical history: Repair of zenker's diverticulum and esophageal perforation 06/16/2018. H/O tracheostomy. Peg tube, since removed - Family History Positive for: non-pertinent - Social History Smoking Status: Never smoked Alcohol Use: None Drug Use: None Additional social history: Lives independently Review of Systems Review of Systems: ROS: 10pt was reviewed & negative except for what was stated in HPI & below Physical Exam Physical Exam: Temp Pulse Resp BP Pulse Ox 37.4 C 82 16 100/76 94 07/30/18 15:26 07/30/18 15:26 07/30/18 15:26 07/30/18 15:26 07/30/18 15:26 Constitutional: no apparent distress Eyes: PERRL Ears, Nose, Mouth, Throat: dry mucous membranes Cardiovascular: regular rate and rhythym, no murmur, rub, or gallop Respiratory: no respiratory distress, clear to auscultation Gastrointestinal: normoactive bowel sounds, soft, non-tender abdomen Skin: warm Neurologic: AAOx3 Psychiatric: interacting appropriately, anxious Lab Data & Imaging Review 07/30/18 14:00 07/30/18 14:00 WBC 0.80 10^3/uL (3.80-9.50) L* 07/30/18 14:00 RBC 3.98 10^6/uL (4.40-6.38) L 07/30/18 14:00 Hgb 12.0 g/dL (13.7-17.5) L 07/30/18 14:00 Hct 34.3 % (40.0-51.0) L 07/30/18 14:00 MCV 86.2 fL (81.5-99.8) 07/30/18 14:00 MCH 30.2 pg (27.9-34.1) 07/30/18 14:00 MCHC 35.0 g/dL (32.4-36.7) 07/30/18 14:00 RDW 12.9 % (11.5-15.2) 07/30/18 14:00 Plt Count 111 10^3/uL (150-400) L 07/30/18 14:00 MPV 9.8 fL (8.7-11.7) 07/30/18 14:00 Neut % (Auto) Not Reported 07/30/18 14:00 Lymph % (Auto) Not Reported 07/30/18 14:00 Mora % (Auto) Not Reported 07/30/18 14:00 Eos % (Auto) Not Reported 07/30/18 14:00 Baso % (Auto) Not Reported 07/30/18 14:00 Nucleat RBC Rel Count Not Reported 07/30/18 14:00 Absolute Neuts (auto) Not Reported 07/30/18 14:00 Absolute Lymphs (auto) Not Reported 07/30/18 14:00 Absolute Monos (auto) Not Reported 07/30/18 14:00 Absolute Eos (auto) Not Reported 07/30/18 14:00 Absolute Basos (auto) Not Reported 07/30/18 14:00 Absolute Nucleated RBC Not Reported 07/30/18 14:00 Immature Gran % Not Reported 07/30/18 14:00 Seg Neutrophils % 2.0 % 07/30/18 14:00 Band Neutrophils % 0.0 % 07/30/18 14:00 Lymphocytes % 78.8 % 07/30/18 14:00 Monocytes % 12.1 % 07/30/18 14:00 Eosinophils % 6.1 % 07/30/18 14:00 Basophils % 1.0 % 07/30/18 14:00 Metamyelocytes % 0.0 % 07/30/18 14:00 Myelocytes % 0.0 % 07/30/18 14:00 Promyelocytes % 0.0 % 07/30/18 14:00 Blast Cells % 0.0 % 07/30/18 14:00 Megakaryocytes % Cancelled 07/30/18 14:00 Immature Gran # Not Reported 07/30/18 14:00 Absolute Seg Neuts 0.02 10^3/uL (1.70-6.50) L 07/30/18 14:00 Absolute Band Neuts 0.00 10^3/uL (0.00-0.70) 07/30/18 14:00 Absolute Lymphocytes 0.63 10^3/uL (1.00-3.00) L 07/30/18 14:00 Absolute Monocytes 0.10 10^3/uL (0.30-0.80) L 07/30/18 14:00 Absolute Eosinophils 0.05 10^3/uL (0.03-0.40) 07/30/18 14:00 Absolute Basophils 0.01 10^3/uL (0.02-0.10) L 07/30/18 14:00 Absolute Metamyelocyte 0.00 10^3/mL (0.00-0.00) 07/30/18 14:00 Absolute Myelocytes 0.00 10^3/mL (0.00-0.00) 07/30/18 14:00 Absolute Promyelocytes 0.00 10^3/uL (0.00-0.00) 07/30/18 14:00 Absolute Plasma Cells 0.00 10^3/uL (0.00-0.00) 07/30/18 14:00 Nucleated RBCs 1.0 /100 WBC (0-0) H 07/30/18 14:00 Differential Comment Cancelled 07/30/18 14:00 RBC/WBC/PLT Morphology Cancelled 07/30/18 14:00 Hypersegmented Neuts Cancelled 07/30/18 14:00 Atypical Lymphocytes Cancelled 07/30/18 14:00 Absolute Blast Cells 0.00 10^3/uL (0.00-0.00) 07/30/18 14:00 Plasma Cells % 0.0 % 07/30/18 14:00 Smudge Cells Cancelled 07/30/18 14:00 Toxic Granulation Cancelled 07/30/18 14:00 Toxic Vacuolation Cancelled 07/30/18 14:00 Dohle Bodies Cancelled 07/30/18 14:00 Lonny Rods Cancelled 07/30/18 14:00 Platelet Estimate DECREASED (ADEQ) L 07/30/18 14:00 Clumped Platelets Cancelled 07/30/18 14:00 Large Platelets Cancelled 07/30/18 14:00 Giant Platelets Cancelled 07/30/18 14:00 Bizarre Platelets Cancelled 07/30/18 14:00 Polychromasia Cancelled 07/30/18 14:00 Hypochromasia Cancelled 07/30/18 14:00 Basophilic Stippling Cancelled 07/30/18 14:00 Microcytic Cells Cancelled 07/30/18 14:00 Spherocytes Cancelled 07/30/18 14:00 Pappenheimer Bodies Cancelled 07/30/18 14:00 Sickle Cells Cancelled 07/30/18 14:00 Target Cells Cancelled 07/30/18 14:00 Tear Drop Cells Cancelled 07/30/18 14:00 Oval Macrocytes 1+ H 07/30/18 14:00 Stomatocytes Cancelled 07/30/18 14:00 Rapp-Southworth Bodies Cancelled 07/30/18 14:00 Echinocytes Cancelled 07/30/18 14:00 Elliptocytes Cancelled 07/30/18 14:00 Acanthocytes (Spur) Cancelled 07/30/18 14:00 Rouleaux Cancelled 07/30/18 14:00 Keratocytes Cancelled 07/30/18 14:00 Schistocytes Cancelled 07/30/18 14:00 Smear Review By Cancelled 07/30/18 14:00 Sodium 133 mEq/L (135-145) L 07/30/18 14:00 Potassium 3.5 mEq/L (3.5-5.2) 07/30/18 14:00 Chloride 100 mEq/L (97-110) 07/30/18 14:00 Carbon Dioxide 22 mEq/l (22-31) 07/30/18 14:00 Anion Gap 11 mEq/L (6-14) 07/30/18 14:00 BUN 32 mg/dL (7-23) H 07/30/18 14:00 Creatinine 1.3 mg/dL (0.7-1.3) 07/30/18 14:00 Estimated GFR 54 07/30/18 14:00 Glucose 96 mg/dL (70-100) 07/30/18 14:00 Calcium 8.1 mg/dL (8.5-10.4) L 07/30/18 14:00 Total Bilirubin 1.0 mg/dL (0.1-1.4) 07/30/18 14:00 Conjugated Bilirubin 0.3 mg/dL (0.0-0.5) 07/30/18 14:00 Unconjugated Bilirubin 0.7 mg/dL (0.0-1.1) 07/30/18 14:00 AST 23 IU/L (17-59) 07/30/18 14:00 ALT 31 IU/L (21-72) 07/30/18 14:00 Alkaline Phosphatase 55 IU/L (38-126) 07/30/18 14:00 Total Protein 7.0 g/dL (6.3-8.2) 07/30/18 14:00 Albumin 3.5 g/dL (3.5-5.0) 07/30/18 14:00 Cold Agglutinins Cancelled 07/30/18 14:00 Visualized and Interpreted Chest x-ray results: Yes Chest X-Ray results: no infiltrate, other (LBBB and RAFB, no significant change from prior) Visualized and Interpreted EKG results: Yes EKG Interpretation: Positive for: normal sinsus rhythm Assessment & Plan Assessment: Diarrhea with volume depletion - pt was previously constipated, but started taking Miralax, now having diarrhea. DDx includes chemo side effect, overuse of laxative or neutropenic enterocolitis, which seems less likely in absence of fever or abdominal pain. No recent atbx. 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 Recent RLL nodule biopsied, pos for malignancy. Last chemo 10 days ago, followed by Dr. Garcia, who was notified of his admission. Pancytopenia with neutropenia - likely 2/2 chemo. No fevers. -neutropenic precautions -monitor closely for fevers, defer atbx for now Hyponatremia - suspect hypovolemic -NS overnight, recheck in am S/P repair of Zenker's diverticulum complicated by esophageal perf 06/2018 H/O Waldenstroms macroglobulinemia H/O GI lymphoma Full code DVT PPLX - Lovenox Dispo - admit to inpt and anticipate pt will require >48 hrs hospitalization for acute diarrhea, volume repletion, pancytopenia and PT/OT evals
[2018-07-30] MEDS: NS W/ 20 KCl/L 1,000 ML IV SCH (16:29)
--- NOTE | 2018-07-30 17:11 | ASMTCMCOM ---
CM Note CM Note Notes: Reviewed chart. Pt presented to the Emergency Department with complaints of weakness. History includes Zenker's diverticulum, esophageal perforation with repair, squamous cell carcinoma with chemo and radiation, h/o PEG and trach, GI lymphoma, Hep C, dysphagia. Pt is single and lives alone. His sister is his emergency contact. Pt admitted with FTT for further observation and treatment. Discharge needs remain unclear. Pt was discharged from [facility] in June of 2018 with [facility]. It is unclear if the pt is still open with [facility]. CM will continue to follow. Date Signed: 07/30/2018 05:10 PM Electronically Signed By:Nohemi Phillips RN
--- NOTE | 2018-07-30 17:40 | PDMN ---
Medical Necessity Medical necessity: Pt meets IP criteria as of 07/30/2018 per and [facility] ( gastroenterology [facility]); est los > 2 mn for ongoing tx and evaluation of diarrhea , dehydration, and weakness with volume depletion despite receiving 2 L IVF at clinic the day before admission, high risk of infection d/t pancytopenia and chemo for metastatic SCC of the tongue; requiring IVF, serial labs, neutropenic precautions, and PT/OT. Hx GI lymphoma, Waldenstroms macroglobulinemia, and hep C.
[2018-07-30] MEDS ORDERED: IOPAMIDOL (ISOVUE-300) 100 ML BTL ONE (21:12)
[2018-07-30] MEDS ORDERED: VANCOMYCIN HCL/NORMAL SALINE 250 ML IV ONE (22:00)
[2018-07-30] MEDS: CEFEPIME HCL 2 GM in NS 100 ML IV SCH ×2 (22:01→22:25)
[2018-07-30] MEDS: ALPRAZolam 1 MG TAB PO SCH (22:04)
[2018-07-31] MEDS: MEROPENEM 1 GM in NS 100 ML IV SCH ×2 (00:45→10:14)
[2018-07-31] MEDS: NS W/ 20 KCl/L 1,000 ML IV SCH ×2 (01:09→08:59)
--- NOTE | 2018-07-31 04:31 | GCON ---
[f rep st] CONSULTATION DATE OF CONSULTATION: 07/30/2018 REFERRING PHYSICIAN: Zuleyma Reeves MD REASON FOR EVALUATION: Possible pneumoperitoneum. HISTORY OF PRESENT ILLNESS: 73-year-old male with a significant history for metastatic squamous cell carcinoma with lung metastases currently receiving chemotherapy admitted with intractable diarrhea and dehydration. Because of a neutropenic fever and diarrhea, CT imaging was performed, disclosing evidence of possible pneumoperitoneum. Surgery has been requested for further recommendations. At the present time, the patient reports that his diarrhea has markedly improved as of today with no further episodes of incontinence. GI PCR workup without evidence of C diff or other bacterial source. The patient denies any specific abdominal complaints. He denies any blood per rectum. He denies nausea or vomiting. PAST MEDICAL HISTORY: Metastatic squamous cell carcinoma, history of Waldenstrom macroglobulinemia, as well as GI lymphoma. PAST SURGICAL HISTORY: Attempted PEG tube placement requiring open gastrostomy , attempted endoscopic Zenker's diverticulectomy complicated by perforation requiring an open repair, tracheostomy placement and removal. ALLERGIES: Penicillin (rash). HOME MEDICATIONS: Xanax. SOCIAL HISTORY: The patient is a nonsmoker, nondrinker. PHYSICAL EXAMINATION: VITAL SIGNS: Temperature 36.8, blood pressure 96/57, pulse 72, respirations 17. The patient is currently sleeping and easily arousable. HEENT/NECK: Anicteric. No cervical lymphadenopathy. No cervical crepitus. HEART: Regular. LUNGS: Clear. ABDOMEN: Mildly distended, soft, nontender. Well-healed gastrostomy incision. EXTREMITIES: Without edema. NEUROLOGIC: Alert and appropriate. SKIN: Without rashes. DATA REVIEWED: White count 0.8, hemoglobin 12, platelets of 111. Sodium 133, potassium 3.5, chloride 100, CO2 22, BUN 32, creatinine 1.3, glucose 96. Liver enzymes within reference range. Urinalysis unremarkable. Stool: GI, PCR negative by report. CT images were directly reviewed on PACS and with on-call radiologist. Small scattered free intra-abdominal air bubbles as well as possible intraluminal air bubbles. Small central mesenteric/retroperitoneal edema. No gross free air. No areas of bowel wall thickening. Re-identification of no known duodenal diverticula. Dilated gallbladder with sludge versus stones. IMPRESSION: Probable benign pneumatosis/pneumoperitoneum in the setting of neutropenic enteritis. The patient has a clinically benign abdominal exam. RECOMMENDATIONS: Continued serial abdominal exams. At this point in time, no further workup or intervention warranted assuming a continued improving clinical course. Findings and recommendations were discussed with the patient and nursing staff at bedside. All questions were entertained. /[id number]/MODL MTDD
[2018-07-31 04:46] LABS: PLATELET COUNT 82 10^3/uL (150-400)
--- NOTE | 2018-07-31 08:32 | SOAPPROG ---
SOAP Progress Note Assessment/Plan: Assessment:slept well. no further diarrhea. afebrile. abd soft, nondistended. nontender. benign pneumatosis/pneumoperitoneum likely secondary to neutropenic enteritis. no further workup/treatment needed. diet as tolerated. will sign off - call with questions. Plan: 07/31/18 08:30 Objective: Vital Signs Temp Pulse Resp BP Pulse Ox 36.4 C 64 16 115/79 99 07/31/18 07:19 07/31/18 07:19 07/31/18 07:19 07/31/18 07:19 07/31/18 07:19 Microbiology 07/30/18 18:34 Gastrointestinal Tract Panel (PCR) - Final Stool No Organism Detected By Pcr Laboratory Results 07/31/18 04:20 07/31/18 04:20 07/30/18 07/31/18 08/01/18 05:59 05:59 05:59 Intake Total 2200 Output Total 200 Balance 1999 ICD10 Worksheet Patient Problems: Problems Problem Status Onset Dehydration Acute Squamous cell carcinoma Acute Throat cancer Acute Failure to thrive in adult Acute Head injury Acute Multiple falls Acute Odynophagia Acute Pelvic contusion Acute Pneumonia Acute Rhabdomyolysis Acute Zenker diverticulum Acute
[2018-07-31] MEDS: ENOXAPARIN 40 MG/0.4 ML SYR SC SCH (10:38)
[2018-07-31] MEDS: FILGRASTIM-SNDZ 300 MCG/0.5 ML SYR SC SCH (11:18)
--- NOTE | 2018-07-31 12:51 | HOSPPROG ---
Hospitalist Progress Note Assessment/Plan: 73 year old male with metastatic SCC of the tongue admitted with diarrhea, neutropenia and dehydration. Diarrhea with volume depletion -Likely mucositis/neutropenic enterocolitis due to neutropenia and should resolve as counts normalize. On Zarxia, Gi pathogen panel negative, and CT with small amount of gas although surgery does not think this represents perforation or acute pathology. -cont IVF -imodium Metastatic SCC- with mets to lung. previous trach/peg has been removed. Recent RLL nodule was biopsied which was positive. He follows with Dr. Jose Garcia who has seen the patient. He last received chemo about 1.5 weeks ago. -I discussed the case with oncology who will see the patient Pancytopenia with neutropenia - likely 2/2 chemo. Apparently patient had an isolated temperature to 100 degrees at one point. I discussed the case with oncology who has started Zarxia and we reviewed the chart and decided it is reasonable to stop the vancomycin and hold meropenem and monitor. -monitor counts -cont neupogen Hyponatremia - suspect hypovolemic -Resolved with fluids -continue IVNS until taking adequate PO Anxiety- takes xanax as outpatient. S/P repair of Zenker's diverticulum complicated by esophageal perf 06/2018 H/O Waldenstroms macroglobulinemia H/O GI lymphoma Full code DVT PPLX - Lovenox Dispo -Remain inpatient for dehydration, diarrhea, neutropenia Subjective: patient with no further diarrhea. feels very tired. No nausea Objective: Vital Signs Temp Pulse Resp BP Pulse Ox 36.4 C 72 18 105/67 93 07/31/18 11:30 07/31/18 11:30 07/31/18 11:30 07/31/18 11:30 07/31/18 11:30 Microbiology 07/30/18 18:34 Gastrointestinal Tract Panel (PCR) - Final Stool No Organism Detected By Pcr Laboratory Results 07/31/18 04:20 07/31/18 04:20 07/30/18 07/31/18 08/01/18 05:59 05:59 05:59 Intake Total 2200 Output Total 200 Balance 1999 - Physical Exam Constitutional: no apparent distress, not in pain, chronically ill appearing Eyes: PERRL, anicteric sclera, EOMI Ears, Nose, Mouth, Throat: moist mucous membranes, hearing normal, ears appear normal, no oral mucosal ulcers Cardiovascular: regular rate and rhythym, no murmur, rub, or gallop Respiratory: no respiratory distress, no rales or rhonchi, clear to auscultation Gastrointestinal: normoactive bowel sounds, soft, non-tender abdomen, no palpable masses Genitourinary: no bladder fullness, no bladder tenderness, no renal bruits Skin: no rashes or abrasions, no fluctuance, no induration Musculoskeletal: full muscle strength, no muscle tenderness, normal joint ROM Neurologic: AAOx3, sensation intact bilaterally Psychiatric: interacting appropriately, not anxious, not encephalopathic, thought process linear Lymph, Heme, Immunologic: no cervical LAD, no supraclavicular LAD ICD10 Worksheet Patient Problems: Problems Problem Status Onset Dehydration Acute Squamous cell carcinoma Acute Throat cancer Acute Failure to thrive in adult Acute Head injury Acute Multiple falls Acute Odynophagia Acute Pelvic contusion Acute Pneumonia Acute Rhabdomyolysis Acute Zenker diverticulum Acute
--- NOTE | 2018-07-31 14:30 | PDCONSULT ---
Real Estate Investment Analyst Note: Patient is a 73-year-old male with a recent diagnosis of metastatic head and neck cancer to the bilateral lungs who presents for weakness and dehydration in the setting of profound diarrhea. Patient has a history of Waldenstroms macroglobulinemia treated in 2003 with R- CVP. He was later found to have a normal frontal mass in the left base of the tongue which is up being a T2 P 16+ head and neck cancer. He was seen radiation only from 08/16/2017 to 09/30/2017 to the neck as well as the primary tumor for 33 treatments for a total dose of 6996 cGy. During attempt to endoscopically treat his Zenker's diverticulum June 16, 2018 he unfortunately had an esophageal perforation. He went on to have an open repair of this following day. Postoperatively patient had a fever with some recent evidence of dysphasia on a barium swallow and chest x-ray was performed on 06/17/2018 which showed a new small left upper lobe nodule. This is followed by a CT scan on 06/18/2018 showed multiple solid somewhat spiculated noncalcified pulmonary nodules bilaterally. PET/CT 06/28/2018 subsequently performed that showed that these bilateral nodules were hypermetabolic. He says one underwent CT-guided biopsy of the right lower lobe pulmonary nodule on 07/05/2018. The pathology showed moderately differentiated nonkeratinizing squamous cell carcinoma with diffuse P 16 expression. Patient started palliative carboplatin and paclitaxel on 07/21/2018. His chemotherapy was initially complicated by constipation requiring him to take laxatives. Roughly 3 days into this he began having profound diarrhea with fecal incontinence. He was seen 07/29/2018 clinic for a stool sample as well as for hydration. He was unable to produce a stool sample but got 2 L of IV fluids. He called 07-30-2018 again with reports of diarrhea and profound weakness. He was instructed to go to the emergency room where he was admitted for profound dehydration and weakness. He was given IVF - stool testing was negative for C. diff or other acute infectious process. Patient denies fevers chills or drenching night sweats. He reports decreased appetite, denies abdominal pain. Past medical history: Wall motion's macroglobulinemia History of PE Metastatic head and neck cancer Hepatitis C Past surgical history: Exploratory laparotomy for small bowel obstruction with lysis of adhesions Social history: Patient denies history of alcohol drugs or tobacco. Family history: Mother of breast cancer at age 67 Father of a myocardial infarction Review of Systems: A complete 12 point ROS was obtained and found to be negative unless indicated in the HPI Physical examination: Vital Signs Reviewed General: No acute distress appearing nontoxic male HEENT: Pupils are equal round reactive to light no scleral icterus or multiple is appreciated oral mucosa is moist without any evidence of oral pharyngeal lesions Neck: Supple Cardiovascular: Regular rate and rhythm without rubs. No murmurs Chest: Clear to auscultation percussion bilateral posterior lungs Abdomen: Soft, nontender, nondistended without any hepatosplenomegaly appreciated Extremities: Warm and well-perfused 2+ dorsalis pedis and radial pulses bilaterally Neurologic: Cranial nerves II through XII are grossly intact, patient does have a flexion contracture of the left upper extremity Medications and allergies reviewed in the MAR Assessment and Plan: Patient is a 73-year-old male with a recent diagnosis of metastatic head and neck cancer admitted with weakness and diarrhea Problem #1-acute diarrhea Evaluation for infectious etiology was unremarkable. This is likely secondary to mucositis from chemotherapy. Recommend supportive measures including repletion of electrolytes, Imodium or Lomotil as needed, and volume resuscitation. Problem #2-severe neutropenia secondary to chemotherapy Patient is currently day #10 carboplatin and paclitaxel given 07/21/2018. Given patient's diarrhea and high suspicion that this is related to mucositis we will start patient on filgastrim daily until ANC is over thousand We will continue to follow patient
[2018-07-31] MEDS: ALPRAZolam 1 MG TAB PO SCH (20:57)
[2018-07-31] MEDS ORDERED: VANCOMYCIN 750 MG in D5W 150 ML IV SCH (22:00)
[2018-08-01] MEDS: NS W/ 20 KCl/L 1,000 ML IV SCH (06:56)
--- NOTE | 2018-08-01 11:22 | ASMTCMCOM ---
CM Note CM Note Notes: Patient plan of care reviewed in am rounds. He is living on his own and is quite weak. Diagnosis of squamous cell carcinoma with metastatic disease. He is undergoing chemo and suffers from side effects. May benefit from palliative care consultation. Per PT he would benefit from HHC at this time. Per RN significantly weak and possible SNF. CM to follow for needs. Plan: TBD Date Signed: 08/01/2018 11:11 AM Electronically Signed By:Emmie Silvestre RN
--- NOTE | 2018-08-01 12:08 | SOAPPROG ---
SOAP Progress Note Assessment/Plan: Assessment: 1. Head and neck cancer, metastatic 2. Diarrhea secondary to chemotherapy 3. Neutropenia 4. history Waldenstroms Plan:Check labs today, continue with hydration, gcsf, long discussion 08/01/18 12:06 Subjective: Diarrhea better, weak Objective: Vital Signs Temp Pulse Resp BP Pulse Ox 98.2 F 78 17 127/74 H 97 08/01/18 11:40 08/01/18 11:40 08/01/18 11:40 08/01/18 11:40 08/01/18 11:40 Laboratory Results 07/31/18 04:20 07/31/18 04:20 07/31/18 08/01/18 08/02/18 05:59 05:59 05:59 Intake Total 2200 1850 1173 Output Total 200 300 Balance 2000 1550 1173 Physical Exam - Physical Exam General Appearance: alert, mild distress Respiratory: lungs clear Cardiac/Chest: regular rate, rhythm Abdomen: normal bowel sounds, non-tender ICD10 Worksheet Patient Problems: Problems Problem Status Onset Dehydration Acute Squamous cell carcinoma Acute Throat cancer Acute Failure to thrive in adult Acute Head injury Acute Multiple falls Acute Odynophagia Acute Pelvic contusion Acute Pneumonia Acute Rhabdomyolysis Acute Zenker diverticulum Acute
[2018-08-01 13:10] LABS: PLATELET COUNT 121 10^3/uL (150-400)
[2018-08-01] MEDS: ENOXAPARIN 40 MG/0.4 ML SYR SC SCH ×3 (14:56→19:35)
--- NOTE | 2018-08-01 15:04 | GCON ---
[f rep st] CONSULTATION PALLIATIVE MEDICINE CONSULT DATE OF CONSULTATION: 08/01/2018 CHIEF COMPLAINT: Dr. Hayes requests goals of care clarification and support for patient undergoing treatment for metastatic squamous cell cancer of the head and neck. HISTORY OF PRESENT ILLNESS: This is a 73-year-old gentleman who developed severe uncontrollable diarrhea likely as a result of chemotherapy. He did show concerning signs on his initial abdominal CAT scan, and was seen in consultation by Surgery as well. They feel that he has a neutropenic enteritis. The patient was first admitted to the hospital on August 01. I was able to speak with Dr. Garcia as well as Dr. Taylor, who was rounding today at the hospital. Any further chemotherapy would be very risky, however, there is a possibility of immunotherapy. The patient has a very small volume of metastatic disease. All of the people who have interacted with the patient share the same insight. His primary motivation for life is to travel. He reports that prior to his diagnosis he would travel more than 200 days a year. He is very clear he would want no more chemotherapy given its effects on him. When he was initially diagnosed and had aggressive treatment and removal of his tongue, he had prolonged complications. He ended up being in the ICU and requiring a prolonged stay at a rehabilitation facility. He reports he missed 4 trips at that time and this still bothers him. He intends to travel to [place] and [place] on August 11. He is hoping he will be strong enough. He also has the goal of lanette diving in [facility] for his 74th birthday which will be in March of this year. For him, travel is "the only thing that matters." When I discussed with him what other things might make life worth living, he shares that having an intact mental status as well as being functionally independent is important; however, he does qualify this by saying he has been lying in bed for a few days now and is looking forward to several television programs. With regard to people with dementia, he feels that they have no quality of life and that their lives are "horrible." He wants to maintain a life with dignity. In exploring what he means by this, we discussed various interventions. He feels a colostomy might interfere with a good QOL. He is uncertain. We also discussed resuscitation preferences. He feels attempt at resuscitation with artificial support for 10 days would be appropriate. I discussed with him the benefits and burdens and likely outcomes of attempts at resuscitation. He currently denies any pain. He does admit to continued difficulty talking. He still feels weak. His diarrhea is improving. He reports a chronically poor appetite. He did eat half an omelet for breakfast. He weighs approximately 130 pounds and prior to the diagnosis weighed 155 pounds. PAST MEDICAL HISTORY: 1. Waldenstrom's macroglobulinemia. 2. History of pulmonary embolus. 3. History of tracheostomy and feeding tube. 4. Metastatic squamous cell cancer of the head and neck. 5. Hepatitis C. 6. History of small-bowel obstruction with lysis of adhesions. SOCIAL HISTORY: He currently wishes to be full code. He wishes his twin sisters Olga Nunez and Zeina Sanchez to be his decision makers for medical problems should he be unable to make decisions. He is not certain if he has completed this paperwork. He does not smoke. He does not drink. He currently lives in [place]. FAMILY HISTORY: His mother of breast cancer at age of 67, and his brother of complications from a stroke and heart attack. ALLERGIES: Penicillin. CURRENT MEDICATIONS: Scheduled medications include Xanax 3 mg at bedtime, filgrastin 300 mcg subcutaneously daily, and normal saline with 20 mEq of potassium chloride at 125 mL/hour. PHYSICAL EXAM: VITAL SIGNS: Shows a blood pressure of 118/68, heart rate of 76 , respiratory rate of 17 and he is currently saturating 94% on room air. GENERAL: He has a gravelly voice. He is lying flat in bed. He appears chronically ill and thin. Able to articulate his thoughts well. He is oriented. HEENT: Mild temporal wasting. Intact dentition. Mucous membranes are dry. CARDIOVASCULAR: Regular rate and rhythm. RESPIRATORY: Clear to auscultation bilaterally. ABDOMEN: Positive bowel sounds. MUSCULOSKELETAL: Able to reposition himself in bed. He does report that it took him 30 minutes with assistance to get to the toilet last evening. ASSESSMENT AND PLAN: This is a 73-year-old gentleman with metastatic squamous cell cancer of the head and neck. 1. Goals of care. He wishes to continue to travel. He does not want to pursue further chemotherapy. He is open to discussing the option of immunotherapy. He tells me that when he first met Dr. Garcia, he was informed he had a life expectancy of [address] Garcia's physician assistant softball coach he was told he had a life expectancy of 3-11 months. This was disconcerting to him and he is hopeful it will be longer so he can continue to travel. With regard to quality of life, he absolutely would not want to be in constant pain. When I discussed with him the poor likelihood of a positive outcome from attempts at resuscitation, this gives him pause. I share with him the likelihood of success of attempts at resuscitation in the hospital is approximately 1 in 6, and even with these numbers there would likely be hypoxic brain injury. He will continue to think about his preferences for attempts at resuscitation. 2. Followup. SCOTT will call the patient on August 09 to see where he is at. I did share with the patient I thought he would likely need to go to rehabilitation based on his comment that it took him 30 minutes to simply urinate last evening. He is open to this. If he is well enough to travel and intends to embark on his journey to [place] and [place] on August 11, we will schedule followup for him in mid September after he returns. If he will be staying in the area and have to cancel this trip, followup will be scheduled sooner. TIME SPENT: Please note that approximately 70 minutes have been spent on this consult including review of the chart, reaching out to his hospital physicians and oncologists, and direct patient assessment. /[id number]/MODL MTDD
--- NOTE | 2018-08-01 15:33 | HOSPPROG ---
Hospitalist Progress Note Assessment/Plan: # neutropenic enteritis - resolving; seen by surgery without intervention - continue supportive care # dehydration - cont IVF - will do a bolus of NS before bed # pancytopenia d/t chemo - counts improving # hypoNa - resolved # anxiety - cont xanax # s/p repair of Zenker's diverticulum complicated by esophageal perf 06/2018 # hx Waldenstroms macroglobulinemia # hx GI lymphoma Subjective: he still feels very fatigued; no diarrhea; seen by palliative care today Objective: Vital Signs Temp Pulse Resp BP Pulse Ox 36.8 C 78 17 127/74 H 97 08/01/18 11:40 08/01/18 11:40 08/01/18 11:40 08/01/18 11:40 08/01/18 11:40 Laboratory Results 08/01/18 13:00 08/01/18 13:00 07/31/18 08/01/18 08/02/18 05:59 05:59 05:59 Intake Total 2200 1850 1423 Output Total 200 300 200 Balance 1999 [address] reviewed - Physical Exam Constitutional: uncomfortable, other (laying on his side in bed) Cardiovascular: regular rate and rhythym, no murmur, rub, or gallop Respiratory: no respiratory distress, no rales or rhonchi, clear to auscultation Gastrointestinal: soft, non-tender abdomen, no palpable masses ICD10 Worksheet Patient Problems: Problems Problem Status Onset Dehydration Acute Squamous cell carcinoma Acute Throat cancer Acute Failure to thrive in adult Acute Head injury Acute Multiple falls Acute Odynophagia Acute Pelvic contusion Acute Pneumonia Acute Rhabdomyolysis Acute Zenker diverticulum Acute
[2018-08-01] MEDS: FILGRASTIM-SNDZ 300 MCG/0.5 ML SYR SC SCH (18:17)
[2018-08-01] MEDS ORDERED: NS 1,000 ML IV ONE (20:00)
[2018-08-01] MEDS: ALPRAZolam 1 MG TAB PO SCH (21:01)
[2018-08-02 05:09] LABS: PLATELET COUNT 128 10^3/uL (150-400)
[2018-08-02] MEDS: ENOXAPARIN 40 MG/0.4 ML SYR SC SCH (09:15)
--- NOTE | 2018-08-02 10:57 | PDPCPN ---
Palliative Care Progress Note Assessment/Plan: Assessment:73 yo man with metastatic SCC of the head and neck - admitted for profound diarrhea, likely a SE of treatment. He is improving. Plan: His diarrhea, strength and appetite are improving. He reports frequent urination, likely from IVF resuscitation. We discussed again, outpatient follow up - timing dependent on his travel plans. 08/02/18 10:54 Subjective: He is feeling better today than he has since arriving. He is urinating a lot. Objective: Vital Signs Temp Pulse Resp BP Pulse Ox 36.8 C 75 18 142/82 H 95 08/02/18 07:09 08/02/18 07:09 08/02/18 07:09 08/02/18 07:09 08/02/18 07:09 Laboratory Results 08/02/18 04:12 08/02/18 04:12 08/01/18 08/02/18 08/03/18 05:59 05:59 05:59 Intake Total 1850 4423 Output Total 300 750 300 Balance 1550 3673 -300 Physical Exam - Physical Exam General Appearance: no apparent distress, other (relaxed) ICD10 Worksheet Patient Problems: Problems Problem Status Onset Dehydration Acute Squamous cell carcinoma Acute Throat cancer Acute Failure to thrive in adult Acute Head injury Acute Multiple falls Acute Odynophagia Acute Pelvic contusion Acute Pneumonia Acute Rhabdomyolysis Acute Zenker diverticulum Acute
--- NOTE | 2018-08-02 11:44 | SOAPPROG ---
SOAP Progress Note Assessment/Plan: Assessment: 1. Head and neck cancer, metastatic 2. Diarrhea secondary to chemotherapy, better 3. Neutropenia, resolved 4. history Waldenstrom's Plan:D/C GCSF 08/01/18 12:06 08/02/18 11:43 Objective: Vital Signs Temp Pulse Resp BP Pulse Ox 98.2 F 75 18 142/82 H 95 08/02/18 07:09 08/02/18 07:09 08/02/18 07:09 08/02/18 07:09 08/02/18 07:09 Laboratory Results 08/02/18 04:12 08/02/18 04:12 08/01/18 08/02/18 08/03/18 05:59 05:59 05:59 Intake Total 1850 4423 Output Total 300 750 300 Balance 1550 3673 -300 ICD10 Worksheet Patient Problems: Problems Problem Status Onset Dehydration Acute Squamous cell carcinoma Acute Throat cancer Acute Failure to thrive in adult Acute Head injury Acute Multiple falls Acute Odynophagia Acute Pelvic contusion Acute Pneumonia Acute Rhabdomyolysis Acute Zenker diverticulum Acute
[2018-08-02 11:48] VITALS: BP 142/95
--- NOTE | 2018-08-02 12:37 | ASMTCMCOM ---
CM Note CM Note Notes: Plan of care reviewed in am rounds with MD. Referral in allscripts to [facility] as patient meeting criteria for inpatient rehab. Hopefully transfer as early as today if bed available. CM available should other needs arise. Plan: Dc to SNF. Date Signed: 08/02/2018 12:36 PM Electronically Signed By:Emmie Silvestre RN
--- NOTE | 2018-08-02 13:23 | PDIAF ---
- Diagnosis Diagnosis: Dehydration, head and neck cancer Code Status: Full Code - Medication Management Discharge Medications: electronically signed and located in the Home Medication List. - Orders Services needed: Registered Nurse, Certified Shift Engineer, Physical Therapy, Occupational Therapy Diet Recommendation: no restrictions on diet - Follow Up Care Current Providers and Referrals: Buddy Munoz MD [Primary Care Provider] - As per Instructions Jose Garcia MD [Medical Doctor] -
--- NOTE | 2018-08-02 13:44 | ASMTLACE ---
LACE Length of stay for Answers: 2 days current admission Acuity / Level of Answers: Yes Care: Did the patient have an inpatient admission? Comorbidities - select Answers: Any tumor (including all that apply lymphoma or leukemia) Mild liver or renal disease Other Notes: Zenker's diverticulum, esophagea l perf w/ repair, hx of P EG and trach, GI lymphoma, Hep C, dysphagia # of Emergency department Answers: 1-2 visits in the last 6 months Score: 11 Date Signed: 08/02/2018 01:44 PM Electronically Signed By:Emmie Silvestre RN
--- NOTE | 2018-08-02 13:47 | ASMTDCNOTE ---
Case Management Discharge Discharge Order Complete? Answers: Yes Patient to Obtain Answers: Other Notes: SNF Medications Transportation Arranged Answers: Family/Friends Faxed Final Orders Answers: Yes Agency/Facility Transfer Answers: Yes Report Printed & Faxed to Receiving Agency Family Notified Answers: Yes Discharge Comments Notes: Patient medically cleared to go to SNF today. He is accepted to [facility]. Transport to happen later this pm. Questions answered. CM available should needs arise. Date Signed: 08/02/2018 01:46 PM Electronically Signed By:Emmie Silvestre RN
--- NOTE | 2018-08-02 13:47 | GDS ---
[f rep st] DISCHARGE SUMMARY ALL DIAGNOSES: 1. Neutropenic enteritis. 2. Dehydration. 3. Pancytopenia due to chemotherapy. 4. Hyponatremia. 5. Anxiety, on Xanax. 6. Squamous cell cancer of the head and neck. 7. History of Zenker's diverticulum, status post repair. 8. History of Waldenstrom's macroglobulinemia. 9. History of a gastrointestinal lymphoma. HOSPITAL COURSE: This is a 73-year-old man with a history of squamous cell cancer of the head and ne ck who had previously undergone radiation for this. Recently, he was diagnosed with metastatic disea se to his lungs. He was started on chemotherapy. He did not tolerate this very well at all, had sig nificant diarrhea, as well as pancytopenia. He was admitted to the hospital due to severe dehydratio n. There was some concern that he had some small amount of air seen in his abdominal CT scan; thus, Surgery was consulted who did not feel as though this represented a perforation, more likely this was benign pneumatosis/pneumoperitoneum, secondary to neutropenic enteritis. He was treated conservativ linda, although he did receive a few doses of antibiotics. He significantly improved, although he is e xtremely weak at this point. He is not having any more diarrhea. Given how sick he got after receiv ing chemotherapy, he is not planning on continuing chemotherapy, although he has yet to discuss this with his primary oncologist Dr. Garcia. [facility] and occupational therapy. He ideally would like to go on an overseas vacation in about a [place] and a half, although I have told him that is somewhat unlikely at this point given how debilitate d he is, he understands. He is, otherwise, discharged in stable condition. BILLING: I spent more than 30 minutes on the day of discharge coordinating care. /[id number]/MODL
--- NOTE | 2018-08-02 17:18 | ASMTCMCOM ---
CM Note CM Note Notes: Call from [facility] who report allscripts information is blank. Hard copy faxed. Receipt confirmed. Date Signed: 08/02/2018 05:17 PM Electronically Signed By:Emmie Silvestre RN
--- NOTE | 2018-08-03 17:43 | CPEKG ---
Test Reason : OPEN Blood Pressure : / mmHG Vent. Rate : 092 BPM Atrial Rate : 092 BPM P-R Int : 164 ms QRS Dur : 123 ms QT Int : 372 ms P-R-T Axes : 080 264 044 degrees QTc Int : 461 ms Sinus rhythm RBBB and LAFB Confirmed by Kalani Gifford ([id number]) on 08/03/2018 5:42:53 PM Referred By: Kalani Gifford Confirmed By:Kalani Gifford
== END 2018-08-02 15:30 | DRG 393 ==
LOC: F1N 15:41
PROVIDERS: ADMIT Hospitalist; ATTEND Hospitalist
DX: K52.1 Toxic gastroenteritis and colitis (principal); D61.810 Antineoplastic chemotherapy induced pancytopenia; E87.1 Hypo-osmolality and hyponatremia; C78.01 Secondary malignant neoplasm of right lung; C78.02 Secondary malignant neoplasm of left lung; E86.0 Dehydration; T45.1X5A Adverse effect of antineoplastic and immunosuppressive drugs, initial encounter; F41.9 Anxiety disorder, unspecified; Z85.89 Personal history of malignant neoplasm of other organs and systems; Z85.72 Personal history of non-Hodgkin lymphomas
CPT/HCPCS: 97116-GP; 97162-GP; 97166-GO; 97530-GP; J0692; J1650; J2185; J3370; Q5101; Q9967